=== PATIENT | female | born 1960 | race Caucasian/White ===

== ENCOUNTER → 2016-08-11 | Outpatient (CLI) | payer BC ==
[~2016-08-11] MED LIST: AMIT75TA2 PO; AMLO5TAB2 PO; ASPI-390 PO; ATOR-22 PO; CARV12.52 PO; CARV25TA PO; DICL1GEL28 TOP; FLUT0.15 NAE; GABA-113 PO; LOSA100T65 PO
--- NOTE | 2016-08-11 16:42 | DIAGNOSTIC IMAGING REPORT ---
CHEST 2 VIEWS ROUTINE CLINICAL HISTORY: COUGH, UPPER RESISTOR TRACT Reaction, acute SINUSITIS dyspnea. Cough. COMPARISON STUDY: 09/03/2015 FINDINGS: The bones soft tissues and hemidiaphragms are normal. The cardiomediastinal silhouette is normal. The lungs are clear. The pulmonary vasculature is normal. IMPRESSION: Negative chest. Electronically signed by: Abimael Up M.D. 08/11/2016 4:41 PM Dictated Date/Time: 08/11/2016 4:41 PM
== END | disposition home or self-care (01) ==
LOC: C.RAD1850 16:28
PROVIDERS: ATTEND Nurse Practitioner Family
DX: R05 Cough (principal); J39.3 Upper respiratory tract hypersensitivity reaction, site unspecified; J01.90 Acute sinusitis, unspecified

== ENCOUNTER → 2016-09-22 | Outpatient (CLI) | payer BC ==
--- NOTE | 2016-09-23 14:42 | PULMONARY FUNCTION TEST ---
Interpretation based off ATS standards. SPIROMETRY: Within normal limits and no signs of significant reversibility. LUNG VOLUMES: Mildly decreased residual volume and FRC consistent with obesity. DIFFUSION CAPACITY: Not obtained.
== END | disposition home or self-care (01) ==
LOC: C.RC 12:47
PROVIDERS: ATTEND Family Medicine
DX: R05 Cough (principal)

== ENCOUNTER → 2016-10-20 | Outpatient (CLI) | payer BC ==
--- NOTE | 2016-10-21 08:21 | MAMMOGRAPHY REPORT ---
BILATERAL DIGITAL SCREENING MAMMOGRAM TOMOSYNTHESIS WITH CAD: 10/20/2016 CLINICAL HISTORY: Routine screening. Patient has no complaints. TECHNIQUE: Breast tomosynthesis in addition to standard 2D mammography was performed. Current study was also evaluated with a Computer Aided Detection (CAD) system. COMPARISON: Comparison is made to exam dated: 07/11/2008. BREAST COMPOSITION: The tissue of both breasts is almost entirely fatty. FINDINGS: There is a newly visualized prominent 16 mm left axillary lymph node. This far superior l ocation may not been included on the prior mammogram. Nevertheless, further characterization with ta rgeted ultrasound is recommended. There are a few benign-appearing microcalcifications and mild vascular calcifications in the breasts. No other suspicious mass, architectural distortion or cluster of microcalcifications is seen. IMPRESSION: ACR BI-RADS CATEGORY 0: INCOMPLETE EVALUATION: NEED ADDITIONAL IMAGING EVALUATION The prominent 16 mm left axillary lymph node needs additional imaging evaluation. The patient will be called to schedule an appointment. Approximately 10% of breast cancers are not detected with mammography. A negative mammographic report should not delay biopsy if a clinically suggestive mass is present. Lissa Noonan M.D. ay/:10/20/2016 18:13:56 Oil Heater Installer: Thu VELASCO)([place]), [facility] letter sent: Addl Imaging 0 BI-RADS Code: ACR BI-RADS Category 0: Incomplete Evaluation: Need Additional Imaging Evaluation
== END | disposition home or self-care (01) ==
LOC: C.MAMM 15:48
PROVIDERS: ATTEND Family Medicine
DX: Z12.31 Encounter for screening mammogram for malignant neoplasm of breast (principal); R59.9 Enlarged lymph nodes, unspecified

== ENCOUNTER → 2016-10-28 | Outpatient (CLI) | payer BC ==
--- NOTE | 2016-10-29 09:08 | MAMMOGRAPHY REPORT ---
ULTRASOUND OF LEFT BREAST: 10/28/2016 CLINICAL HISTORY: Callback from screening mammogram for prominent left axillary lymph node. COMPARISON: Comparison is made to exams dated: 10/20/2016 mammogram - [facility] an d 07/11/2008. TECHNIQUE: Real-time targeted ultrasound of the left breast was performed. FINDINGS: Real-time, high resolution targeted ultrasound was performed of the left axilla. In the l eft axilla there is a morphologically abnormal axillary lymph node which has an echogenic fatty hilum but does have peripheral cortical thickening and a lobulated shape, measuring 1.5 x 1.3 x 1.8 cm. T his corresponds with the prominent lymph node seen mammographically. A few other smaller mildly prom inent left axillary lymph nodes are seen which are normal oval in shape and have echogenic fatty stone but have mild cortical thickening. Recommend ultrasound guided core needle biopsy of the dominant l eft axillary lymph node. Targeted ultrasound was performed of the right axilla for comparison purposes, which shows morphologi marilin normal right axillary lymph nodes with echogenic fatty stone and thin peripheral cortices. IMPRESSION: ACR BI-RADS CATEGORY 4: SUSPICIOUS - FOLLOW-UP RECOMMENDED Morphologically abnormal 1.8 cm left axillary lymph node on ultrasound, which corresponds with the ly mph node seen on the screening mammogram. A few other mildly prominent left axillary lymph nodes are seen, which appear asymmetric to the right axillary lymph nodes. Recommend ultrasound guided core n eedle biopsy of the dominant left axillary lymph node. A phone call was made to the physician's office to confirm faxed results were received. The patient was verbally notified of the results. She tentatively scheduled the biopsy before leaving the [facility]. Aria Byrd M.D. /:10/28/2016 14:46:00 Electro Optics Engineer: Thu BACON(R)(M), [facility] letter sent: Abnormal 4/5 BI-RADS Code: ACR BI-RADS Category 4: Suspicious
== END | disposition home or self-care (01) ==
LOC: C.MAMM 13:30
PROVIDERS: ATTEND Family Medicine
DX: R59.9 Enlarged lymph nodes, unspecified (principal)

== ENCOUNTER → 2016-11-06 | Outpatient (CLI) | payer BC ==
--- NOTE | 2016-11-06 08:34 | Discharge Instructions ---
Discharge Instructions Procedure Procedure Date: Nov 06, 2016. Reason for visit: Left Axillary Node. Discharge Discharge Date: Nov 06, 2016. Discharge Diagnosis: status post breast biopsy Instructions Activity Recommendations: Additional Limitations (see below) Return to School/Work: no limitations Recommended Home Diet: No Limitations Provider Instructions: ACTIVITY RECOMMENDATIONS: * No lifting, pushing, pulling or exercising the affected side for three days. RETURN TO SCHOOL/WORK: * You may return to work/school after the procedure, but do not perform any strenuous activities for 24 to 48 hours. MEDICATIONS: * Tylenol (two 325 mg) every four to six hours if needed for mild pain (if not allergic to Tylenol). DIET: * Resume previous diet. SPECIAL CARE INSTRUCTIONS: * Keep biopsy site dry for 24 hours. May shower after 24 hours, but do not soak (bathe) incision. * May remove Tegaderm (plastic patch) tomorrow AFTER showering. * Leave the steri-strips on for one week. Allow the steri-strips to fall off by themselves. If not off after one week, you may remove them. You may place a Bandaid crosswise over the strips, if desired. * Apply ice 10 minutes on and 10 minutes off as needed. * Wear a bra at bedtime to sleep more comfortably for 2-3 days. * Your referring physician should have the results after approximately 5 to 7 business days. * Call for unusual bleeding, fever, drainage, etc or if you have any questions call during normal business hours or after hours call Dr Byrd, . FOLLOW UP VISIT: Follow-up with Referring Physician as scheduled. Allergies Coded Allergies: Sumatriptan (Verified Adverse Reaction, Intermediate, PALPITATIONS, ) Dolores Chairez Recommendations: Call your doctor if: * Temperature above 101 degrees * Pain not relieved by pain medicine ordered * There is increased drainage or redness from any incision * You have any unanswered questions or concerns. Your Doctors Instructions noted above were prepared by provider Aria Byrd. Patient Signature Section: Patient Instructions Signature Page Nisreen Nelson Patient (or Guardian) Signature/Date: I have read and understand the instructions given to me by my caregivers. Caregiver/RN/Doctor Signature/Date: The above-named patient and/or guardian has received patient instructions on this date. + Original Patient Signature Page (only) stays with chart. Please make copy for patient.
--- NOTE | 2016-11-06 12:32 | MAMMOGRAPHY REPORT ---
THIS REPORT HAS BEEN AMENDED. ULTRASOUND GUIDED BIOPSY LEFT BREAST: 11/06/2016 CLINICAL HISTORY: Abnormal left axillary lymph node. PATIENT CONSENT: The procedure, risks and benefits were discussed with the patient and informed writt en consent was obtained. A timeout was performed immediately prior to the procedure. PROCEDURE DESCRIPTION: With ultrasound guidance, aseptic technique, and lidocaine as the local anesth etic (1% lidocaine to anesthetize the skin and 1% lidocaine with epinephrine to anesthetize the deepe r tissues), the left axillary lymph node was sampled 3 times with a 14-gauge Achieve biopsy needle. Immediately thereafter, with ultrasound guidance, aseptic technique, and lidocaine as the local anest hetic, a metallic localizer clip was placed into the lymph node. Direct pressure was applied to the site immediately post procedure and hemostasis was achieved. Postprocedure unilateral mammograms wer e performed to confirm clip placement. The patient tolerated the procedure without complication. Sh e was given wound care instructions. The specimens were sent to pathology for analysis. COMPARISON: Comparison is made to exams dated: 10/28/2016 ultrasound, 10/20/2016 mammogram - [facility], and 07/11/2008. IMPRESSION: ULTRASOUND GUIDED BIOPSY Ultrasound guided core needle biopsy of the abnormal left axillary lymph node, with clip placement. The patient will receive pathology results from her referring provider. Aria Byrd M.D. ah/:11/06/2016 08:35:50 System Support Specialist: Flor Banda, [facility] AMENDMENT: 11/20/2016 Aria Byrd M.D. Pathology results from ultrasound guided biopsy of a left axillary lymph node was reviewed on 11/21/19 17. The pathology shows necrotizing granulomatous inflammation. Consider surgical consultation for f armando evaluation.
--- NOTE | 2016-11-06 12:32 | MAMMOGRAPHY REPORT ---
UNILATERAL LEFT DIGITAL DIAGNOSTIC MAMMOGRAM: 11/06/2016 CLINICAL HISTORY: Status post ultrasound guided biopsy of a left axillary lymph node. TECHNIQUE: Postprocedural left MLO view was obtained. COMPARISON: Comparison is made to exams dated: 10/28/2016 ultrasound and 10/20/2016 mammogram - [facility]. BREAST COMPOSITION: The tissue of the left breast is almost entirely fatty. FINDINGS: A new biopsy marker clip is seen within the biopsied left axillary lymph node. No signifi cant postbiopsy hematoma is seen. IMPRESSION: POST PROCEDURE IMAGING FOR MARKER PLACEMENT New biopsy marker clip status post ultrasound guided biopsy of an abnormal left axillary lymph node. Pathology results are pending. Approximately 10% of breast cancers are not detected with mammography. A negative mammographic report should not delay biopsy if a clinically suggestive mass is present. Aria Byrd M.D. /:11/06/2016 08:46:18 Kiln Maintenance: Flor Banda, [facility] BI-RADS Code: Post Procedure Imaging For Marker Placement
== END | disposition home or self-care (01) ==
LOC: C.MAMM 07:50
PROVIDERS: ATTEND Family Medicine
DX: R59.9 Enlarged lymph nodes, unspecified (principal)

== ENCOUNTER → 2016-12-23 | Outpatient (CLI) | payer BC | END | disposition home or self-care (01) | LOC: C.PATHSPEC 13:08 | PROVIDERS: ATTEND Surgery | DX: R59.0 Localized enlarged lymph nodes (principal) ==

== ENCOUNTER → 2017-01-21 | Outpatient (CLI) | payer BC ==
--- NOTE | 2017-01-21 11:18 | DIAGNOSTIC IMAGING REPORT ---
CHEST 2 VIEWS ROUTINE CLINICAL HISTORY: 56 years-old Female presenting with coughing, health maintenance. TECHNIQUE: PA and lateral views of the chest were obtained. COMPARISON: 08/11/2016. FINDINGS: Cardiomediastinal silhouette normal. Few calcified granulomas may be present. Lungs and pleural spaces clear. Osseous structures normal. Cholecystectomy clips noted. IMPRESSION: 1. No acute cardiopulmonary disease. Electronically signed by: Brandon Lopez M.D. 01/21/2017 11:17 AM Dictated Date/Time: 01/21/2017 11:16 AM
[2017-01-25 16:43] LABS: QUANTIF TB AG-NIL <0.00 IU/ML; QUANTIFERON NIL 0.04 IU/ML
== END | disposition home or self-care (01) ==
LOC: C.RAD1850 10:42
PROVIDERS: ATTEND Internal Medicine Infectious Disease
DX: Z00.00 Encounter for general adult medical examination without abnormal findings (principal); R05 Cough

== ENCOUNTER → 2017-06-02 | Outpatient (CLI) | payer OTHER ==
--- NOTE | 2017-06-02 17:16 | DIAGNOSTIC IMAGING REPORT ---
CT SCAN OF THE PARANASAL SINUSES CLINICAL HISTORY: Anosmia. Chronic sinusitis. COMPARISON STUDY: MRI of the brain dated 04/04/2015. TECHNIQUE: High-resolution CT scan of the paranasal sinuses is performed. Images are reviewed in the axial, sagittal, and coronal planes. IV contrast was not administered for this examination. A dose lowering technique was utilized adhering to the principles of ALARA. CT DOSE: 269.19 mGycm FINDINGS: Maxillary antra: Clear bilaterally. Anterior ethmoid sinuses: Clear. Posterior ethmoid sinuses: Clear. Sphenoid sinuses: Clear. Frontal sinuses: Trace mucosal thickening is similar right. Clear on the left. Ostiomeatal complexes: Patent bilaterally. Frontoethmoidal and sphenoethmoidal recesses: Patent bilaterally. Carotid arteries: The carotid arteries are covered and without septal attachments. Ethmoid roofs: The ethmoid roofs are symmetric. Nasal turbinates: Normal in appearance. Nasal septum: There is minimal leftward deviation of the bony nasal septum. Optic nerves: Covered. Orbits: The bony orbits are intact. Orbital contents are normal in appearance. Calvarium: The skeletal structures are osteopenic. The imaged calvarium is normal in appearance Mastoid air cells: Well pneumatized. Brain parenchyma: Partially visualized brain parenchyma is within normal limits. IMPRESSION: No significant paranasal sinus disease. See above. Electronically signed by: Huey Desai M.D. 06/02/2017 5:15 PM Dictated Date/Time: 06/02/2017 5:13 PM
== END | disposition home or self-care (01) ==
LOC: C.CTS 16:58
PROVIDERS: ATTEND Family Medicine
DX: J32.9 Chronic sinusitis, unspecified (principal); R43.0 Anosmia

== ENCOUNTER 2018-10-31 11:27 | Inpatient (IN) ==
[2018-10-31] MEDS ORDERED: OPTIRAY 320 125ml IV PRN (11:49)
--- NOTE | 2018-10-31 11:56 | CT Scan Report ---
CT SCAN OF THE BRAIN WITHOUT IV CONTRAST CLINICAL HISTORY: Strokelike symptoms. COMPARISON STUDY: CT of the brain dated 04/13/2018. TECHNIQUE: Unenhanced axial CT scan of the brain is performed from the vertex to the skull base. A d ose lowering technique was utilized adhering to the principles of ALARA. FINDINGS: Brain parenchyma: The brain parenchyma is normal in appearance. There is no hemorrhage, mass effect, or evidence of acute territorial ischemia by CT criteria. Chaves-white matter differentiation is preser trice. No extra-axial fluid collection is seen. Ventricles, sulci, cisterns: Normal in configuration. Intracranial vasculature: There is atherosclerotic calcification of the cavernous carotid arteries. Calvarium: Unremarkable. Sinuses and mastoids: The visualized paranasal sinuses are clear. The mastoid air cells are well pneu matized. Orbits: The bony orbits are grossly intact. IMPRESSION: There is no hemorrhage, mass effect, or evidence of acute territorial ischemia by CT vimal prakash. Electronically signed by: Huey Desai M.D. 10/31/2018 11:54 AM
--- NOTE | 2018-10-31 12:03 | CT Scan Report ---
CT angio head w con CLINICAL HISTORY: 58 years-old Female presenting with CVA. TECHNIQUE: Multidetector CT angiography of the head was performed after the administration of intrave nous contrast. 3-D volumetric and/or maximum intensity projection (MIP) images were subsequently mitchel nstructed for review. IV contrast: 119 mL of Optiray 320. One or more dose lowering techniques were u sed consistent with the principles of ALARA (as low as reasonably achievable), including automatic ex posure control, mA or kV adjustment to individual patient size, and/or use of iterative reconstructio n. COMPARISON: 04/13/2018. CT DOSE (mGy.cm): The estimated cumulative dose is 1258.11. FINDINGS: Digital Specialist topogram: Unremarkable. Anterior circulation: Intracranial portions of the internal carotid arteries patent to the level of t he termini. Aplastic A1 segment of the right anterior cerebral artery. Anterior cerebral arteries oth erwise patent. Middle cerebral arteries patent. Anterior communicating artery patent. Posterior circulation: Codominant vertebral arteries. Intradural portions of the vertebral arteries p atent. Left posterior inferior cerebellar artery (PICA) patent, which may supply the bilateral PICA d istribution as the right PICA is not well demonstrated. Basilar artery patent. Anterior inferior cere bellar arteries poorly visualized. Superior cerebellar arteries patent. Posterior cerebral arteries p atent. Posterior communicating arteries hypoplastic or aplastic. Dural venous sinuses: Patent. Other: Allowing for the phase of contrast, brain parenchyma within normal limits. Calvarium intact. IMPRESSION: 1. No evidence of aneurysm, focal vessel occlusion, or significant stenosis of the intracranial latanya larisa. Electronically signed by: Brandon Lopez M.D. 10/31/2018 12:02 PM
[2018-10-31 12:13] LABS: Basophils # (auto) 0.04 K/uL (0-0.2); Basophils % (auto) 0.5 %; Eosinophils # (auto) 0.24 K/uL (0-0.5); Eosinophils % (auto) 3.2 %; Hemoglobin 14.8 g/dL (12.0-16.0); Immature Granulocytes # (auto) 0.02 K/uL (0.00-0.02); Immature Granulocytes % (auto) 0.3 %; Lymphocytes # (auto) 1.95 K/uL (1.2-3.4); Lymphocytes % (auto) 26.2 %; Mean Corpuscular Hgb Conc 35.2 g/dL (32-36); Mean Corpuscular Volume 87.1 fL (80-100); Mean Platelet Volume 9.5 fL (7.4-10.4); Monocytes # (auto) 0.57 K/uL (0.11-0.59); Monocytes % (auto) 7.7 %; Neutrophils # (auto) 4.62 K/uL (1.4-6.5); Neutrophils % (auto) 62.1 %; Platelet Count 229 K/uL (130-400); RDW Coefficient of Variation 14.1 % (11.5-14.5); RDW Standard Deviation 44.7 fL (36.4-46.3); Red Blood Count 4.82 M/uL (4.2-5.4); White Blood Count 7.44 K/uL (4.8-10.8)
--- NOTE | 2018-10-31 12:13 | CT Scan Report ---
CT ANGIOGRAPHY OF THE NECK WITH CONTRAST CLINICAL HISTORY: Cerebrovascular accident. COMPARISON STUDY: CTA of the neck July 18, 2018. Technique: CT angiography of the carotid and vertebral arteries was obtained using [employer] 320 IV and 3D reconstruction on an independent workstation. NASCET criteria was utilized. Automated exposure c ontrol was utilized for the study. A dose lowering technique was utilized adhering to the principles of ALARA. CT DOSE: 1258.11 mGy.cm Findings: Please note that the head CT and CTA of the head will be reported separately. Lung apices a re clear. There is no cervical lymphadenopathy. A focal dissection within the proximal right vertebra l artery on axial image 130 of 376 is unchanged exam of July 18, 2018. The vessel remains patent. No thrombus is identified. The bilateral common carotid and cervical internal carotid arteries are blanchard nt. There is minimal plaque within the proximal left internal carotid artery without stenosis. No add itional dissections are identified. IMPRESSION: 1. 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 2. Otherwise, unremarkable CTA of the neck. No stenosis. Electronically signed by: Kristopher Hammer M.D. 10/31/2018 12:12 PM
[2018-10-31 12:24] LABS: INR 1.1 (0.9-1.1); Partial Thromboplastin Ratio 0.9; Partial Thromboplastin Time 23.5 Seconds (21.0-31.0); Prothrombin Time 10.9 Seconds (9.0-12.0)
[2018-10-31 12:32] LABS: Alanine Aminotransferase 15 U/L (12-78); Albumin Level 4.2 gm/dl (3.4-5.0); Aspartate Aminotransferase 27 U/L (15-37); BUN Creatinine Ratio 14.5 (10-20); Blood Urea Nitrogen 17 mg/dl (7-18); Calcium 9.1 mg/dl (8.5-10.1); Carbon Dioxide 30 mmol/L (21-32); Chloride 100 mmol/L (98-107); Creatinine Clr Calc Pharmacy 57.9 ml/min; Est GFR (African American) 60.5; Est GFR (Non-African American) 52.2; Glucose 82 mg/dl (70-99); Magnesium 2.4 mg/dl (1.8-2.4); Potassium 2.8 mmol/L (3.5-5.1); Sodium 135 mmol/L (136-145)
[2018-10-31] MEDS: SODIUM CHLORIDE 0.9% 1000ML 1,000 ML IV SCH (12:33)
[2018-10-31 12:37] LABS: Albumin Globulin Ratio 1.2 (0.9-2); Alkaline Phosphatase 88 U/L (45-117); Bilirubin,Total 0.4 mg/dl (0.2-1); Globulin 3.4 gm/dl (2.5-4.0); Total Protein 7.6 gm/dl (6.4-8.2); Troponin I < 0.015 ng/ml (0-0.045)
[2018-10-31] MEDS ORDERED: POTASSIUM CHLORIDE 20 MEQ/15 ML UDC PO STA (13:15)
[2018-10-31] MEDS ORDERED: ACETAMINOPHEN 1,000 MG/100 ML VIAL IV STA (13:24)
[2018-10-31] MEDS ORDERED: PROCHLORPERAZINE 10 MG in SYRINGE 8 ML IV ONE (13:24)
[2018-10-31] MEDS ORDERED: DiphenhydrAMINE HCL 50 MG/ML VIAL IV STA (13:24)
[2018-10-31] MEDS ORDERED: PROCHLORPERAZINE 5 MG/ML 2 ML VIAL ONE (13:29)
--- NOTE | 2018-10-31 14:51 | Emergency Department Note ---
Entered by Belinda Martinez acting as a scribe for History of Present Illness General Chief complaint: Stroke Alert Source: patient and family Mode of arrival: EMS Limitations: no limitations History of Present Illness Provider complaint: stroke-like symptoms Onset (ago): hour(s) 1 Location: head Pain Consistency: + other (episode) Quality: + other (stroke-like) Associated symptoms: + headaches, + weakness and + other (facial droop) The patient is a 58 year old female who presents to the ER via EMS following an episode of stroke-like symptoms that began around 1030 this morning. EMS reports that the patient was on her way to work when she suddenly developed left-sided weakness and facial droop. EMS states that she was complaining of a severe headache in the back of her head. The patents at bedside states the patient had a similar episode about 6 months ago and when they were about to give the patient TPA, her symptoms improved. 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 She was treated with several months of Coumadin therapy which she has since stopped. EMS reports that her symptoms do seem improved since their initial onset. Home Medications Home Medications Medication Instructions Recorded Confirmed Type azelastine 2 spray INTRANASAL BID 01/19/18 10/31/18 History chlorthalidone 50 mg PO QAM 01/19/18 10/31/18 History gabapentin 300 mg PO HS 01/19/18 10/31/18 History albuterol sulfate 2 - 4 puff INHALATION Q4 PRN 04/13/18 10/31/18 History bupropion HCl [Wellbutrin SR] 150 mg PO BID 04/13/18 10/31/18 History aspirin [Ecotrin Low Strength] 81 mg PO QAM #30 tab 04/16/18 10/31/18 Rx atorvastatin 40 mg PO QAM #30 tab 04/16/18 10/31/18 Rx carvedilol [Coreg] 12.5 mg PO BID 06/21/18 10/31/18 History amlodipine 10 mg PO DAILY 10/31/18 10/31/18 History lorazepam 1 - 2 mg PO BID PRN 10/31/18 10/31/18 History sertraline 150 mg PO QAM 10/31/18 10/31/18 History Allergies Allergy/AdvReac Type Severity Reaction Status Date / Time sumatriptan AdvReac Intermediate PALPITATION Verified 10/31/18 12:50 S Past Med/Surg History Social History Preferred Language: Kosovan Communication Ability: Effective 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 and A total of 10 systems reviewed and were otherwise negative Physical Exam Vital Signs Vital Signs - 24 hr 10/31/18 12:01 10/31/18 12:05 10/31/18 12:07 Temperature 36.6 C Temperature Source Oral Sepsis Recent Fever Within 48 Hours No Sepsis Action Taken by Nursing No Action Required Pulse Rate 73 73 73 Pulse Rate [Apical] 73 Pulse Rate from SpO2 Sensor 73 73 Respiratory Rate 14 16 14 Blood Pressure 141/90 H 141/90 H Blood Pressure [Left Arm] 141/90 H Blood Pressure Mean 107 107 Blood Pressure Mean [Left Arm] 107 Pulse Oximetry 97 99 99 Oxygen Delivery Method Room Air 10/31/18 12:10 10/31/18 12:20 10/31/18 12:30 Temperature Temperature Source Sepsis Recent Fever Within 48 Hours Sepsis Action Taken by Nursing Pulse Rate 72 73 78 Pulse Rate [Apical] Pulse Rate from SpO2 Sensor 72 73 79 Respiratory Rate 16 22 24 Blood Pressure Blood Pressure [Left Arm] Blood Pressure Mean Blood Pressure Mean [Left Arm] Pulse Oximetry 99 98 97 Oxygen Delivery Method 10/31/18 12:31 10/31/18 12:40 10/31/18 12:50 Temperature Temperature Source Sepsis Recent Fever Within 48 Hours Sepsis Action Taken by Nursing Pulse Rate 72 79 73 Pulse Rate [Apical] Pulse Rate from SpO2 Sensor 73 80 73 Respiratory Rate 22 15 18 Blood Pressure 142/97 H Blood Pressure [Left Arm] Blood Pressure Mean 112 Blood Pressure Mean [Left Arm] Pulse Oximetry 98 99 99 Oxygen Delivery Method 10/31/18 13:00 10/31/18 13:01 10/31/18 13:10 Temperature Temperature Source Sepsis Recent Fever Within 48 Hours Sepsis Action Taken by Nursing Pulse Rate 71 71 71 Pulse Rate [Apical] Pulse Rate from SpO2 Sensor 72 70 70 Respiratory Rate 17 24 Blood Pressure 135/96 Blood Pressure [Left Arm] Blood Pressure Mean 109 Blood Pressure Mean [Left Arm] Pulse Oximetry 100 99 100 Oxygen Delivery Method 10/31/18 13:21 10/31/18 13:30 10/31/18 13:39 Temperature Temperature Source Sepsis Recent Fever Within 48 Hours Sepsis Action Taken by Nursing Pulse Rate 77 70 71 Pulse Rate [Apical] Pulse Rate from SpO2 Sensor 74 71 71 Respiratory Rate 22 24 18 Blood Pressure 116/83 Blood Pressure [Left Arm] Blood Pressure Mean 94 Blood Pressure Mean [Left Arm] Pulse Oximetry 96 98 95 Oxygen Delivery Method 10/31/18 13:41 10/31/18 13:46 10/31/18 13:50 Temperature Temperature Source Sepsis Recent Fever Within 48 Hours Sepsis Action Taken by Nursing Pulse Rate 72 71 71 Pulse Rate [Apical] Pulse Rate from SpO2 Sensor 72 71 71 Respiratory Rate 27 H 28 H 15 Blood Pressure 110/80 Blood Pressure [Left Arm] Blood Pressure Mean 90 Blood Pressure Mean [Left Arm] Pulse Oximetry 97 99 98 Oxygen Delivery Method 10/31/18 14:00 10/31/18 14:01 10/31/18 14:05 Temperature Temperature Source Sepsis Recent Fever Within 48 Hours Sepsis Action Taken by Nursing Pulse Rate 64 70 69 Pulse Rate [Apical] Pulse Rate from SpO2 Sensor 65 69 70 Respiratory Rate 13 14 18 Blood Pressure 143/102 H 131/90 Blood Pressure [Left Arm] Blood Pressure Mean 115 103 Blood Pressure Mean [Left Arm] Pulse Oximetry 97 96 98 Oxygen Delivery Method 10/31/18 14:10 10/31/18 14:16 10/31/18 14:20 Temperature Temperature Source Sepsis Recent Fever Within 48 Hours Sepsis Action Taken by Nursing Pulse Rate 65 63 63 Pulse Rate [Apical] Pulse Rate from SpO2 Sensor 64 63 63 Respiratory Rate 15 16 15 Blood Pressure 95/63 L Blood Pressure [Left Arm] Blood Pressure Mean 73 Blood Pressure Mean [Left Arm] Pulse Oximetry 96 98 97 Oxygen Delivery Method Vital signs reviewed. General: Well-appearing, in no significant distress. HEENT: No scleral icterus, PERRLA, neck supple. Atraumatic. Cardiovascular: Regular rate and rhythm, no extra sounds. Pulmonary: Clear to auscultation bilaterally, normal work of breathing. Abdomen: Soft, nontender, nondistended, positive bowel sounds. Musculoskeletal: Atraumatic, no peripheral edema. Neurologic: Patient awake alert and answers questions appropriately. Speech is intact. ? left nasal-labial fold flattening. Minimal attempt at left lead oracle developer strength. 3/5 of the LLE. Able to hold the left lower and upper extremity up off of the bed for greater than 5 seconds. Skin: Warm, dry, no rash Course 1121: I took the medic command call. A Stroke Alert was called. 1144: The patient arrived and was taken to CT. 1155: The patient returned from CT. She was evaluated in room B1. A complete history and physical examination was performed. 1156: I discussed the patients case with Dr. Gaines [facility]. She will be evaluating the patient via TeleStroke. 1211: The patient is being evaluated by Dr. Gaines - [facility] Neu[facility] via TeleStroke. 1227: I reviewed the patients case with Dr. Gaines [facility]. 1311: I discussed the patient's case with Dr. Hayes - [facility] Hospitalist. He will evaluate the patient for further management. Administered Medications Sodium Chloride (Nss 1000ml) 1,000 mls @ 100 mls/hr IV .Q10H NATTY Stop: 11/30/18 11:44 Last Admin: 10/31/18 12:33 Dose: 100 mls/hr Documented by: [id number] Ioversol (Optiray 320 125ml) 119 ml IV ONCE PRN PRN Reason: Interaction Checking Stop: 11/04/18 11:48 Last Admin: 10/31/18 11:49 Dose: 119 ml Documented by: [id number] Discontinued Medications Diphenhydramine HCl (Benadryl) 25 mg IV NOW STA Stop: 10/31/18 13:25 Last Admin: 10/31/18 13:37 Dose: 25 mg Documented by: [id number] Acetaminophen (Ofirmev) 1,000 mg in 100 mls @ 400 mls/hr IV NOW STA Stop: 10/31/18 13:38 Last Infusion: 10/31/18 14:36 Dose: 0 mls/hr Documented by: [id number] Admin: 10/31/18 13:37 Dose: 400 mls/hr Documented by: [id number] Prochlorperazine 10 mg/ (Syringe) 10 mls @ 5 mls/min IV ONE ONE Stop: 10/31/18 13:25 Last Admin: 10/31/18 13:37 Dose: 5 mls/min Documented by: [id number] Potassium Chloride (Nanette Ciel Elix) 40 meq PO NOW STA Stop: 10/31/18 13:16 Last Admin: 10/31/18 13:37 Dose: 40 meq Documented by: [id number] Prochlorperazine (Compazine) Confirm Administered Dose 10 mg .ROUTE .STK-MED ONE Stop: 10/31/18 13:30 Last Admin: 10/31/18 13:38 Dose: Not Given Documented by: [id number] Medical Decision Making Differential Diagnosis Differential Diagnosis includes: ischemic stroke, hemorrhagic stroke, bells palsy, mass, neoplasm, migraine headache, seizure, subarachnoid hemorrhage, hemiplegic migraine, TIA, and transient global amnesia. Medical Records Attestation: I reviewed the patient's medical records. Home Medications Current Medication List: was personally reviewed by me Laboratory Data Attestation: I reviewed the patient's lab results. Result diagrams: 10/31/18 12:05 10/31/18 12:05 Lab Results 10/31/18 10/31/18 10/31/18 Range/Units 11:59 12:05 12:05 WBC 7.44 (4.8-10.8) K/uL RBC 4.82 (4.2-5.4) M/uL Hgb 14.8 (12.0-16.0) g/dL Hct 42.0 (37-47) % MCV 87.1 (80-100) fL MCH 30.7 (25-34) pg MCHC 35.2 (32-36) g/dL RDW Std Deviation 44.7 (36.4-46.3) fL RDW Coeff of Kylie 14.1 (11.5-14.5) % Plt Count 229 (130-400) K/uL MPV 9.5 (7.4-10.4) fL Immature Gran % (Auto) 0.3 % Neut % (Auto) 62.1 % Lymph % (Auto) 26.2 % [place] % (Auto) 7.7 % Eos % (Auto) 3.2 % Baso % (Auto) 0.5 % Immature Gran # (Auto) 0.02 (0.00-0.02) K/uL Neut # (Auto) 4.62 (1.4-6.5) K/uL Lymph # (Auto) 1.95 (1.2-3.4) K/uL [place] # (Auto) 0.57 (0.11-0.59) K/uL Eos # (Auto) 0.24 (0-0.5) K/uL Baso # (Auto) 0.04 (0-0.2) K/uL PT 10.9 (9.0-12.0) Seconds INR 1.1 (0.9-1.1) APTT 23.5 (21.0-31.0) Seconds PTT Ratio 0.9 Sodium (136-145) mmol/L Potassium (3.5-5.1) mmol/L Chloride (98-107) mmol/L Carbon Dioxide (21-32) mmol/L Anion Gap (3-11) BUN (7-18) mg/dl Creatinine (0.6-1.2) mg/dl Est Cr Clr Drug Dosing ml/min Est GFR ( Amer) Est GFR (Non-Af Amer) BUN/Creatinine Ratio (10-20) Glucose (70-99) mg/dl POC Glucose 95 (70-99) Calcium (8.5-10.1) mg/dl Magnesium (1.8-2.4) mg/dl Total Bilirubin (0.2-1) mg/dl AST (15-37) U/L ALT (12-78) U/L Alkaline Phosphatase (45-117) U/L Troponin I (0-0.045) ng/ml Total Protein (6.4-8.2) gm/dl Albumin (3.4-5.0) gm/dl Globulin (2.5-4.0) gm/dl Albumin/Globulin Ratio (0.9-2) 10/31/18 Range/Units 12:05 WBC (4.8-10.8) K/uL RBC (4.2-5.4) M/uL Hgb (12.0-16.0) g/dL Hct (37-47) % MCV (80-100) fL MCH (25-34) pg MCHC (32-36) g/dL RDW Std Deviation (36.4-46.3) fL RDW Coeff of Kylie (11.5-14.5) % Plt Count (130-400) K/uL MPV (7.4-10.4) fL Immature Gran % (Auto) % Neut % (Auto) % Lymph % (Auto) % [place] % (Auto) % Eos % (Auto) % Baso % (Auto) % Immature Gran # (Auto) (0.00-0.02) K/uL Neut # (Auto) (1.4-6.5) K/uL Lymph # (Auto) (1.2-3.4) K/uL [place] # (Auto) (0.11-0.59) K/uL Eos # (Auto) (0-0.5) K/uL Baso # (Auto) (0-0.2) K/uL PT (9.0-12.0) Seconds INR (0.9-1.1) APTT (21.0-31.0) Seconds PTT Ratio Sodium 135 L (136-145) mmol/L Potassium 2.8 L (3.5-5.1) mmol/L Chloride 100 (98-107) mmol/L Carbon Dioxide 30 (21-32) mmol/L Anion Gap 5.0 (3-11) BUN 17 (7-18) mg/dl Creatinine 1.16 (0.6-1.2) mg/dl Est Cr Clr Drug Dosing 57.9 ml/min Est GFR ( Amer) 60.5 Est GFR (Non-Af Amer) 52.2 BUN/Creatinine Ratio 14.5 (10-20) Glucose 82 (70-99) mg/dl POC Glucose (70-99) Calcium 9.1 (8.5-10.1) mg/dl Magnesium 2.4 (1.8-2.4) mg/dl Total Bilirubin 0.4 (0.2-1) mg/dl AST 27 (15-37) U/L ALT 15 (12-78) U/L Alkaline Phosphatase 88 (45-117) U/L Troponin I < 0.015 (0-0.045) ng/ml Total Protein 7.6 (6.4-8.2) gm/dl Albumin 4.2 (3.4-5.0) gm/dl Globulin 3.4 (2.5-4.0) gm/dl Albumin/Globulin Ratio 1.2 (0.9-2) Imaging Data Radiologist's Impression: Radiology results as stated below per my review and the radiologist's interpretation: CT SCAN OF THE BRAIN WITHOUT IV CONTRAST CLINICAL HISTORY: Strokelike symptoms. COMPARISON STUDY: CT of the brain dated 04/13/2018. TECHNIQUE: Unenhanced axial CT scan of the brain is performed from the vertex to the skull base. A dose lowering technique was utilized adhering to the principles of ALARA. FINDINGS: Brain parenchyma: The brain parenchyma is normal in appearance. There is no hemorrhage, mass effect, or evidence of acute territorial ischemia by CT criteria. Chaves-white matter differentiation is preserved. No extra-axial fluid collection is seen. Ventricles, sulci, cisterns: Normal in configuration. Intracranial vasculature: There is atherosclerotic calcification of the cavernous carotid arteries. Calvarium: Unremarkable. Sinuses and mastoids: The visualized paranasal sinuses are clear. The mastoid ai r cells are well pneumatized. Orbits: The bony orbits are grossly intact. IMPRESSION: There is no hemorrhage, mass effect, or evidence of acute territorial ischemia by CT criteria. Electronically signed by: Huey Desai M.D. 10/31/2018 11:[address] angio head w con CLINICAL HISTORY: 58 years-old Female presenting with CVA. TECHNIQUE: Multidetector CT angiography of the head was performed after the administration of intravenous contrast. 3-D volumetric and/or maximum intensity projection (MIP) images were subsequently reconstructed for review. IV contrast: 119 mL of Optiray 320. One or more dose lowering techniques were used consistent with the principles of ALARA (as low as reasonably achievable), including automatic exposure control, mA or kV adjustment to individual patient size, and/or use of iterative reconstruction. COMPARISON: 04/13/2018. CT DOSE (mGy.cm): The estimated cumulative dose is 1258.11. FINDINGS: Sales And Customer Relations Rep topogram: Unremarkable. Anterior circulation: Intracranial portions of the internal carotid arteries patent to the level of the termini. Aplastic A1 segment of the right anterior cerebral artery. Anterior cerebral arteries otherwise patent. Middle cerebral arteries patent. Anterior communicating artery patent. Posterior circulation: Codominant vertebral arteries. Intradural portions of the vertebral arteries patent. Left posterior inferior cerebellar artery (PICA) patent, which may supply the bilateral PICA distribution as the right PICA is not well demonstrated. Basilar artery patent. Anterior inferior cerebellar arteries poorly visualized. Superior cerebellar arteries patent. Posterior cerebral arteries patent. Posterior communicating arteries hypoplastic or aplastic. Dural venous sinuses: Patent. Other: Allowing for the phase of contrast, brain parenchyma within normal limits. Calvarium intact. IMPRESSION: 1. No evidence of aneurysm, focal vessel occlusion, or significant stenosis of the intracranial arteries. Electronically signed by: Brandon Lopez M.D. 10/31/2018 12:[address] ANGIOGRAPHY OF THE NECK WITH CONTRAST CLINICAL HISTORY: Cerebrovascular accident. COMPARISON STUDY: CTA of the neck July 18, 2018. Technique: CT angiography of the carotid and vertebral arteries was obtained using [employer] 320 IV and 3D reconstruction on an independent workstation. NASCET criteria was utilized. Automated exposure control was utilized for the study. A dose lowering technique was utilized adhering to the principles of ALARA. CT DOSE: 1258.11 mGy.cm Findings: Please note that the head CT and CTA of the head will be reported sep arately. Lung apices are clear. There is no cervical lymphadenopathy. A focal dissection within the proximal right vertebral artery on axial image 130 of 376 is unchanged exam of July 18, 2018. The vessel remains patent. No thrombus is identified. The bilateral common carotid and cervical internal carotid arteries are patent. There is minimal plaque within the proximal left internal carotid artery without stenosis. No additional dissections are identified. IMPRESSION: 1. 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 2. Otherwise, unremarkable CTA of the neck. No stenosis. Electronically signed by: Kristopher Hammer M.D. 10/31/2018 12:12 PM ECG Data Attestation: I personally reviewed and interpreted this ECG as follows: Indication: other (stroke-like sx) Rate (beats per minute): 71 Rhythm: sinus rhythm Findings: + 1st degree AV block and + nonspecific-ST abn (Anterolateral) Blood Pressure Blood Pressure Findings: Elevated blood pressure Blood Pressure Disposition: further management by hospitalist [place] Narrative This patient was evaluated and appeared to be in no significant distress. EMS first contacted me for medical command regarding a stroke alert. Stroke alert was called. CT and CTA of the head and neck were performed and are negative for acute findings. Patient does have some left upper and lower extremity weakness although the exam is somewhat inconsistent. Patient is able to hold the extre mity up off of the bed but states she is unable to bend the left knee. Patient can hold the left arm up off of the bed when the elbow was extended however states she is not able to bend the elbow or extend the shoulder to reach behind the head. Patient's speech has been clear during the entire visit. The nasolabial fold flattening that was questionable on initial exam had completely resolved. Patient is alert and answering questions appropriately. She states she has been taking 2 mg of Ativan each morning prior to going to work. Dr. Rosales of neurology at [facility] evaluated the patient through telestroke. She felt the patient had significant enough deficit to consider TPA therapy. Upon speaking with the patient's he reiterated the patient's history of hemiplegic migraine. He also states the patient's boss let her know this morning that she has had significant errors at work and may be terminated. The patient had the sudden headache and symptoms shortly thereafter. Patient's also reiterates that this presentation is identical to 6 months ago. After taking all things into consideration, I feel strongly that with a negative CT, CT angiogram of the head and neck, and is not in the patient's best interest to receive IV TPA therapy. Her symptoms seem to continue to resolve. I have discussed the case with Dr. Hayes of the hospitalist service, pt and family are aware of the plan and agree. Impression & Plan Headache, Stroke-like symptoms, Acute anxiety Critical Care Time Critical Care Time: Yes Total Critical Care Time: 60 I have personally spent 60 minutes of critical care time in the direct management of this patient. This includes bedside care, interpretation of diagnostic studies, and testing, discussion with consultants, patient, and family members, and other required patient management activities. These 60 minutes are in excess of all separately billable procedures. Discharge Plan Visit Data Chief Complaint: Stroke Alert ED Provider: Yessica Arias Discharge Problem: Headache, Stroke-like symptoms, Acute anxiety Patient Disposition: Being Evaluated by Hospitalist Forms Stand Alone Forms: My [facility] Prescriptions Prescriptions: No Action carvedilol [Coreg] 12.5 mg tablet 12.5 mg PO BID RF: 0 chlorthalidone 50 mg tablet 50 mg PO QAM RF: 0 gabapentin 300 mg capsule 300 mg PO HS RF: 0 azelastine 137 mcg (0.1 %) aerosol,spray 2 spray Intranasal BID RF: 0 bupropion HCl [Wellbutrin SR] 150 mg tablet sustained-release 12 hr 150 mg PO BID RF: 0 albuterol sulfate 90 mcg/actuation HFA aerosol inhaler 2 - 4 puff Inhalation Q4 PRN (Reason: Shortness Of Breath Or Wheezing) RF: 0 atorvastatin 40 mg Tablet 40 mg PO QAM Qty: 30 RF: 0 aspirin [Ecotrin Low Strength] 81 mg Tablet,Delayed Release (Dr/Ec) 81 mg PO QAM Qty: 30 RF: 0 sertraline 100 mg tablet 150 mg PO QAM RF: 0 lorazepam 2 mg tablet 1 - 2 mg PO BID PRN (Reason: Anxiety) RF: 0 amlodipine 10 mg tablet 10 mg PO DAILY RF: 0 Referrals Referrals: Padilla Velez MD [Primary Care Provider] - Discharge Problem: Headache Qualifiers: Headache type: unspecified Headache chronicity pattern: acute headache Intractability: not intractable Qualified Code(s): R51 - Headache The scribe's documentation has been prepared under my direction and personally reviewed by me in its entirety. I confirm that the note above accurately reflects all work, treatment, procedures, and medical decision making performed by me.
--- NOTE | 2018-10-31 15:21 | History & Physical Report ---
Date of Service October 31, 2018 Assessment & Plan (1) Left-sided weakness: Ms. Nelson is a 58yo with a PMHx significant for right sided vertebral artery dissection, complex migraines, HTN and anxiety who presented with the acute onset of left sided weakness, headache associated with nausea, blurry vision in the left eye, slurred speech and numbness and tingling in her extremities bilaterally. Pt likely having another hemiplegic migraine. Less likely stroke/TIA. STROKE RULE OUT -Head CT NEG for acute process, head CTA unremarkable, Neck CTA with stable/unchanged vertebral artery dissection. -NO TPA administered in ED. -stat MRI Brain ordered. -echo, lipid profile, hgA1c ordered -pt admitted to tele, q2h neuro checks -continue home atorvastatin 40mg, aspirin -will continue to monitor HEMIPLEGIC MIGRAINE -Likely cause of patient's presenting symptoms -Started on IV Depakote 500mg BID -Zofran 4mg ODT prn for nausea -will continue to monitor HYPOKALEMIA -On admission 2.8 -Replaced in ED with 40mEq of KClor -One more dose of 40mEq ordered for later in the day. -will trend with AM labs -will continue to monitor HX of vertebral artery dissection -per imaging, currently stable. -will continue to monitor pt for signs of acute progression. HTN -hold home meds of chlorthalidone, carvedilol, amlodipine as BPs have been on low side occasionally. Anxiety -continue home Sertraline, Ativan, bupropion FEN/GI: heart Healthy, fluids DVT Prophylaxis: lovenox subq CODE STATUS: full code Dispo: med surg with tele History of Present Illness Chief Complaint: Left sided weakness Primary Care Provider: Padilla Velez MD Ms. Nelson is a 58yo with a PMHx significant for right sided vertebral artery dissection, complex migraines, HTN and anxiety who presented with the acute onset of left sided weakness, blurry vision in the left eye, slurred speech and numbness and tingling in her extremities bilaterally. This is associated with a headache that she describes as being more prominent in the back of her head and associated with light sensitivity. States her symptoms all started around 10:30AM this morning and she was in the ED by 11:40AM. At the time of exam she states that her speech has improved significantly and that she has the headache with nausea. Her left sided weakness remains as well. PMHx: Complex Migraines, HTN, Anxiety, Vertebral artery dissection PSH: 3 C-sections, cholecystectomy, tonsillectomy, hysterectomy, knee replacement, ovarian cyst removal. Fam Hx: Mother-COPD, of bone cancer. Father- of prostate cancer, had MIs in his 40s. Siblings-have HTN. Allergies: Imitrex-cause palpitations ED COURSE: Head CT unremarkable, Neck CTA with STABLE/unchanged focal vertebral artery dissection, head CTA unremarkable. Unremarkable CBC, BMP with hypokalemia of 2.8, EKG unremarkable except for 1st degree block. Allergies Allergy/AdvReac Type Severity Reaction Status Date / Time sumatriptan AdvReac Intermediate PALPITATION Verified 10/31/18 12:50 S Home Medications Home Medications Medication Instructions Recorded Confirmed Type azelastine 2 spray INTRANASAL BID 01/19/18 10/31/18 History chlorthalidone 50 mg PO QAM 01/19/18 10/31/18 History gabapentin 300 mg PO HS 01/19/18 10/31/18 History albuterol sulfate 2 - 4 puff INHALATION Q4 PRN 04/13/18 10/31/18 History bupropion HCl [Wellbutrin SR] 150 mg PO BID 04/13/18 10/31/18 History aspirin [Ecotrin Low Strength] 81 mg PO QAM #30 tab 04/16/18 10/31/18 Rx atorvastatin 40 mg PO QAM #30 tab 04/16/18 10/31/18 Rx carvedilol [Coreg] 12.5 mg PO BID 06/21/18 10/31/18 History amlodipine 10 mg PO DAILY 10/31/18 10/31/18 History lorazepam 1 - 2 mg PO BID PRN 10/31/18 10/31/18 History sertraline 150 mg PO QAM 10/31/18 10/31/18 History Past Med/Surg History Social History Preferred Language: Somali Communication Ability: Effective Forgesmith Required: No Beliefs That Will Affect Care: None marital status: Current Living Situation: Spouse Other Information That Helps Us Care for You: No Feels Safe at Home: Yes Safety Concerns: Feels Safe At This Time Smoking Status: Never smoker Do You Dip or Chew Tobacco: No Second Hand Exposure: No Tobacco Cessation Education Requested by Patient: No Hx Alcohol Use: No Hx Substance Use: No Review of Systems Review of Systems: All systems reviewed & are unremarkable except as noted in HPI & below Physical Exam Physical Exam: General: Alert, oriented. Laying in the room with eyes covered. Neuro: CNII-XII grossly intact. 3/5 strength on left side, 5/5 on right. Slowed finger to nose test on left, normal with right. HEENT: NC/AT, PERRLA, EOMI, oropharynx moist. Chest: Nontender to palpation. CV: RRR, Normal s1, s2. No murmurs appreciated Resp: Breath sounds clear bilaterally, no increased effort of breathing. Abdomen: Soft, nontender, nondistended. Extremities: No edema. Results & Data Vital Signs (Past 12 Hours) Vital Signs Temp Pulse Pulse Resp BP BP Pulse Ox 10/31/18 14:20 63 15 97 10/31/18 14:16 63 16 95/63 L 98 10/31/18 14:10 65 15 96 10/31/18 14:05 69 18 131/90 98 10/31/18 14:01 70 14 143/102 H 96 10/31/18 14:00 64 13 97 10/31/18 13:50 71 15 98 10/31/18 13:46 71 28 H 110/80 99 10/31/18 13:41 72 27 H 97 10/31/18 13:39 71 18 116/83 95 10/31/18 13:30 70 24 98 10/31/18 13:21 77 22 96 10/31/18 13:10 71 24 100 10/31/18 13:01 71 135/96 99 10/31/18 13:00 71 17 100 10/31/18 12:50 73 18 99 10/31/18 12:40 79 15 99 10/31/18 12:31 72 22 142/97 H 98 10/31/18 12:30 78 24 97 10/31/18 12:20 73 22 98 10/31/18 12:10 72 16 99 10/31/18 12:07 73 14 99 10/31/18 12:05 36.6 C 73 73 16 141/90 H 141/90 H 99 10/31/18 12:01 73 14 141/90 H 97 Laboratory Results Laboratory Results - last 24 hr 10/31/18 10/31/18 10/31/18 11:59 12:05 12:05 WBC 7.44 RBC 4.82 Hgb 14.8 Hct 42.0 MCV 87.1 MCH 30.7 MCHC 35.2 RDW Std Deviation 44.7 RDW Coeff of Kylie 14.1 Plt Count 229 MPV 9.5 Immature Gran % (Auto) 0.3 Neut % (Auto) 62.1 Lymph % (Auto) 26.2 Barton % (Auto) 7.7 Eos % (Auto) 3.2 Baso % (Auto) 0.5 Immature Gran # (Auto) 0.02 Neut # (Auto) 4.62 Lymph # (Auto) 1.95 Barton # (Auto) 0.57 Eos # (Auto) 0.24 Baso # (Auto) 0.04 PT 10.9 INR 1.1 APTT 23.5 PTT Ratio 0.9 Sodium Potassium Chloride Carbon Dioxide Anion Gap BUN Creatinine Est Cr Clr Drug Dosing Est GFR ( Amer) Est GFR (Non-Af Amer) BUN/Creatinine Ratio Glucose POC Glucose 95 Calcium Magnesium Total Bilirubin AST ALT Alkaline Phosphatase Troponin I Total Protein Albumin Globulin Albumin/Globulin Ratio 10/31/18 12:05 WBC RBC Hgb Hct MCV MCH MCHC RDW Std Deviation RDW Coeff of Kylie Plt Count MPV Immature Gran % (Auto) Neut % (Auto) Lymph % (Auto) Barton % (Auto) Eos % (Auto) Baso % (Auto) Immature Gran # (Auto) Neut # (Auto) Lymph # (Auto) Barton # (Auto) Eos # (Auto) Baso # (Auto) PT INR APTT PTT Ratio Sodium 135 L Potassium 2.8 L Chloride 100 Carbon Dioxide 30 Anion Gap 5.0 BUN 17 Creatinine 1.16 Est Cr Clr Drug Dosing 57.9 Est GFR ( Amer) 60.5 Est GFR (Non-Af Amer) 52.2 BUN/Creatinine Ratio 14.5 Glucose 82 POC Glucose Calcium 9.1 Magnesium 2.4 Total Bilirubin 0.4 AST 27 ALT 15 Alkaline Phosphatase 88 Troponin I < 0.015 Total Protein 7.6 Albumin 4.2 Globulin 3.4 Albumin/Globulin Ratio 1.2 Medications Administered Home Medications azelastine 2 spray INTRANASAL BID 01/19/18 [History Confirmed 10/31/18] chlorthalidone 50 mg PO QAM 01/19/18 [History Confirmed 10/31/18] gabapentin 300 mg PO HS 01/19/18 [History Confirmed 10/31/18] albuterol sulfate 2 - 4 puff INHALATION Q4 PRN 04/13/18 [History Confirmed 10/31/18] bupropion HCl [Wellbutrin SR] 150 mg PO BID 04/13/18 [History Confirmed 10/31/18] aspirin [Ecotrin Low Strength] 81 mg PO QAM #30 tab 04/16/18 [Rx Confirmed 10/31/18] atorvastatin 40 mg PO QAM #30 tab 04/16/18 [Rx Confirmed 10/31/18] carvedilol [Coreg] 12.5 mg PO BID 06/21/18 [History Confirmed 10/31/18] amlodipine 10 mg PO DAILY 10/31/18 [History Confirmed 10/31/18] lorazepam 1 - 2 mg PO BID PRN 10/31/18 [History Confirmed 10/31/18] sertraline 150 mg PO QAM 10/31/18 [History Confirmed 10/31/18] Active Medications Sodium Chloride (Nss 1000ml) 1,000 mls @ 100 mls/hr IV .Q10H NATTY Stop: 11/30/18 11:44 Last Admin: 10/31/18 12:33 Dose: 100 mls/hr Documented by: Ioversol (Optiray 320 125ml) 119 ml IV ONCE PRN PRN Reason: Interaction Checking Stop: 11/04/18 11:48 Last Admin: 10/31/18 11:49 Dose: 119 ml Documented by: Supervising Physician Co-Signing Physician Notes I personally examined the patient and verified all sánchez points of history and exam, discussed case, and agree with decision making with Dr Eldridge. headache, neuro deficits. headache persists, neuro deficits improving. vitals noted appearing uncomfortable laying on side in dark room. no focal neuro deficits. breathing unlabored no accessory muscle use good effort. ost/msk - R>L suboccipitals high tone/tender/decreased ROM - inhibitory pressure, improved/pt tolerated well and noted some degree of improvement in headache headache/neuro deficits - complicated migraine > stroke like illness - stat MRI brain, neuro consult. depakote IV for headache (BP somewhat low for adding verapamil, would not want to use triptan given complicated migraine) somatic dysfunction cervical region - OMT as above. DVT proph - lovenox otherwise as above PG Care Time/CCT Total # of Minutes Spent Total Time Spent with Patient: Total time spent is greater than 50% in coordination of care (as documented) at patient's floor/unit and/or counseling patient:
[2018-10-31] MEDS ORDERED: ONDANSETRON 8MG OD TAB PO PRN (15:34)
[2018-10-31] MEDS ORDERED: PHARMACIST DISCHARGE MED REC CONSULT PRN (15:34)
[2018-10-31] MEDS ORDERED: LORazepam 1 MG TAB PO PRN (15:34)
[2018-10-31] MEDS ORDERED: ALBUTEROL HFA 8 GM INHALER INH PRN (15:34)
[2018-10-31] MEDS ORDERED: ONDANSETRON 4 MG OD TAB PO PRN (16:10)
[2018-10-31] MEDS ORDERED: GADOBUTROL 65ML VIAL IV PRN (16:55)
[2018-10-31] MEDS ORDERED: POTASSIUM CHLORIDE 20 MEQ TABCR PO ONE (17:00)
[2018-10-31] MEDS: VALPROATE SOD 500 MG in DEXTROSE 5% 50 ML IV SCH (17:08)
--- NOTE | 2018-10-31 17:12 | Magnetic Resonance Report ---
MRI OF THE BRAIN WITHOUT AND WITH IV CONTRAST CLINICAL HISTORY: Left-sided weakness slurred speech and facial numbness. POSSIBLE ACUTE STROKE COMPARISON STUDY: 04/15/2018 TECHNIQUE: MRI of the brain was performed from the vertex to the skull base utilizing various T1 and T2 weighted sequences. Following the IV administration of 8 mL of Gadavist contrast, additional enhan cookie images were obtained. FINDINGS: Sagittal T1, axial diffusion, proton density and T2 weighted axial, coronal FLAIR, and pre and post a xial T1-weighted images were acquired. These were supplemented with post gadolinium coronal T1 weight ed images. No intra or extra-axial mass lesions are visualized. Axial diffusion-weighted images reveal no evidence of acute or subacute infarction. There is no evidence of ventricular dilatation. Proton density T2-weighted and FLAIR images reveal scattered foci of increased T2 signal within the w judie matter, likely on a small vessel basis. The findings remain unchanged from the preceding study There are no abnormal flow voids. There is no evidence of pathologic enhancement. There is a tiny Thornwaldt cyst nasopharyngeal cyst, unchanged from the prior study. There is minimal increased T2 signal within the mastoids, likely inflammatory and unchanged from the prior study. IMPRESSION: 1. No acute intracranial findings 2. No evidence of intracranial mass 3. No evidence of acute or subacute infarction Electronically signed by: Manish Sherman M.D. 10/31/2018 5:11 PM
[2018-10-31] MEDS ORDERED: ENOXAPARIN INJ 40 MG/0.4 ML SYR SQ SCH (18:00)
[2018-10-31] MEDS ORDERED: ACETAMINOPHEN 500 MG TAB PO PRN (18:37)
[2018-10-31] MEDS ORDERED: GABAPENTIN 300 MG CAP PO SCH (21:00)
[2018-10-31] MEDS: BuPROPion SR 150 MG TABCR PO SCH (21:31)
[2018-10-31] MEDS: KETOROLAC TROMETHAMINE 10 MG TABLET PO PRN (21:32)
[2018-10-31] MEDS ORDERED: TRAMADOL HCL 50 MG TABLET PO STA (22:48)
[2018-11-01] MEDS: SODIUM CHLORIDE 0.9% 1000ML 1,000 ML IV SCH ×2 (01:33→09:59)
[2018-11-01 05:48] LABS: Estimated Average Glucose 108 mg/dl; Hemoglobin A1C 5.4 % (4.5-5.6)
[2018-11-01] MEDS: VALPROATE SOD 500 MG in DEXTROSE 5% 50 ML IV SCH (05:59)
--- NOTE | 2018-11-01 06:47 | Family Medicine Progress Note ---
Date of Service November 01, 2018 Assessment & Plan (1) Left-sided weakness: Ms. Nelson is a 58yo with a PMHx significant for right sided vertebral artery dissection, complex migraines, HTN and anxiety who presented with the acute onset of left sided weakness, headache associated with nausea, blurry vision in the left eye, slurred speech and numbness and tingling in her extremities bilaterally. Pt likely having another hemiplegic migraine. Less likely stroke/TIA. STROKE RULE OUT -neuro consult placed--appreciate recs -PT/OT-appreciate recs -Head CT NEG for acute process, head CTA unremarkable, Neck CTA with stable/unchanged vertebral artery dissection. -NO TPA administered in ED. -stat MRI Brain- NEG for acute process -echo-PENDING -lipid profile with elevated triglycerides only. - hgA1c within normal limits -pt admitted to tele, q2h neuro checks -continue home atorvastatin 40mg, aspirin -will continue to monitor HEMIPLEGIC MIGRAINE -Likely cause of patient's presenting symptoms -Continue IV Depakote 500mg BID -Zofran 4mg ODT prn for nausea -will continue to monitor HYPOKALEMIA -Still decreased this am -will continue to replace and trend -will continue to monitor HX of vertebral artery dissection -per imaging, currently stable. -will continue to monitor pt for signs of acute progression. HTN -hold home meds of chlorthalidone, carvedilol, amlodipine as BPs have been on low side occasionally. Anxiety -continue home Sertraline, Ativan, bupropion FEN/GI: heart Healthy, fluids DVT Prophylaxis: lovenox subq CODE STATUS: full code Dispo: home with resolution of symptoms Results & Data Vital Signs (Past 12 Hours) Vital Signs Temp Pulse Pulse Resp BP Pulse Ox 11/01/18 04:32 36.4 C L 63 18 97/62 L 92 10/31/18 23:45 70 10/31/18 22:57 36.9 C 72 20 97/64 L 96 10/31/18 19:00 36.6 C 61 18 98/65 L 93 PG Care Time/CCT Total # of Minutes Spent Total Time Spent with Patient: Total time spent is greater than 50% in coordination of care (as documented) at patient's floor/unit and/or counseling patient:
[2018-11-01 06:51] LABS: Basophils # (auto) 0.04 K/uL (0-0.2); Basophils % (auto) 0.6 %; Eosinophils # (auto) 0.25 K/uL (0-0.5); Eosinophils % (auto) 3.9 %; Hematocrit (blood only) 38.6 % (37-47); Hemoglobin 13.1 g/dL (12.0-16.0); Lymphocytes # (auto) 2.58 K/uL (1.2-3.4); Lymphocytes % (auto) 40.1 %; Mean Corpuscular Hgb Conc 33.9 g/dL (32-36); Mean Corpuscular Volume 88.3 fL (80-100); Mean Platelet Volume 9.6 fL (7.4-10.4); Monocytes # (auto) 0.45 K/uL (0.11-0.59); Neutrophils # (auto) 3.12 K/uL (1.4-6.5); Neutrophils % (auto) 48.4 %; Platelet Count 203 K/uL (130-400); RDW Coefficient of Variation 14.2 % (11.5-14.5); RDW Standard Deviation 45.7 fL (36.4-46.3); Red Blood Count 4.37 M/uL (4.2-5.4); White Blood Count 6.44 K/uL (4.8-10.8)
[2018-11-01 07:21] LABS: BUN Creatinine Ratio 16.5 (10-20); Calcium 8.2 mg/dl (8.5-10.1); Creatinine Clr Calc Pharmacy 59.2 ml/min; Est GFR (African American) 63.1; Est GFR (Non-African American) 54.5; Potassium 3.2 mmol/L (3.5-5.1)
[2018-11-01] MEDS ORDERED: POTASSIUM CHLORIDE 20 MEQ TABCR PO STA (07:28)
[2018-11-01] MEDS ORDERED: PERFLUTREN LIPID MICROSPHERE (DEFINITY) IV ONE (08:43)
[2018-11-01] MEDS ORDERED: ASPIRIN 81 MG ECTAB PO SCH ×2 (09:00)
[2018-11-01] MEDS ORDERED: ATORVASTATIN 40 MG TAB PO SCH (09:00)
[2018-11-01] MEDS ORDERED: SERTRALINE HCL 100 MG TABLET PO SCH (09:00)
[2018-11-01] MEDS: BuPROPion SR 150 MG TABCR PO SCH (09:56)
--- NOTE | 2018-11-01 10:06 | Neurology Consultation ---
Date of Consultation November 01, 2018 Assessment & Plan (1) Migraine: Patient had an acute complicated migraine consisting of vasospasm/aura as well as vasodilation/headache October 31. This consisted of left-sided weakness in the face and arm as well as blurry vision to the left, some slurred speech and tingling of the left face. All of this has improved back to baseline today, except for some slight asymmetry at the corner of the mouth on the left. Extensive neuro imaging has not shown any new stroke and she has no significant cerebral vascular disease. The right vertebral dissection area is unchanged compared the previous study 6 months ago. There is a longstanding history of migraine headaches in this patient since her 20s. She has had 2 very significant complicated migraines in the last 6 months (April of 2018 and yesterday). S She does have a history of hypertension of a longstanding nature although her blood pressure is not abnormal currently. Hypertension could trigger vasospasm and these spells. She has considerable anxiety and stress and these could trigger migraines and vasospasm as well. Her other risk factors for stroke include dyslipidemia and she is on a statin. She has no history of cigarette smoking, heart disease, or diabetes. 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 This led to 3 months of Coumadin. Repeat studies in July of 2018 and yesterday showed no change in this. After review with Radiology I suspect this lesion in the vessel seen at C6 is probably very old and may actually be a fenestration as opposed to a dissection. (3) Acute anxiety: The patient has a considerable history of anxiety and depression. This is triggered mostly by stress from work and is interfering with her health. Complete neuropsychological testing in April of 2018 revealed some minor neuro cognitive problems only. This testing was were consistent with significan t anxiety depression (4) Chronic cerebral ischemia: Patient has mild old small vessel ischemic change seen on MRI unchanged from previous study of 2018. This is likely secondary to her history of hypertension. Recommendations: 1. Consider verapamil as drug of choice for preventing vasospasm. Because of her tendency to have hypotension we could discontinue Coreg. I would start with 180 milligrams verapamil SR once daily in the morning and could increase to 240 or higher if needed. Blood pressure 1 half to monitor closely. 2. If verapamil cannot be given because of blood pressure/treatment reasons, I would consider lamotrigine to help prevent migraines. We would start at 25 milligrams twice daily for 1 week then increase to 50 milligrams twice daily, and titrating up to a target of 100 milligrams twice daily. Lamotrigine may also help mood. 3. Normally I would consider topiramate (particularly since she wants to lose weight) but she has a history of nephrolithiasis, so I would avoid this medication for now. 4. Because of her severe anxiety we could increase sertraline to 200 milligrams once daily. 5. Consider referring to Psychiatry as an outpatient, for further management of her severe anxiety and depression. 6. Technically, the patient would be a high dose statin candidate if we felt this was a TIA. I do not feel she has any active cerebral vascular disease so I would keep her statin the same for now. 7. Continue 81 milligram aspirin tablet daily. 8. The patient is going to need some counseling regarding whether she should continue to work at this job were not and maybe consider other employment to help reduce her stress levels. 9. I have no further neurologic testing or treatment recommendations to make at this time otherwise. I would be happy to see her as an outpatient for follow- up. Overall, I spent a total of 110 minutes with this case including review of records, review of MRI and CT angiography films, direct evaluation the patient at bedside, and discussion of the case with the patient and her son at bedside, Dr. Desai, and Dr. Tong, including differential diagnosis and treatment options. History of Present Illness Reason for Consultation: Patient is a 58-year-old, who I was asked to see at the request of Dr. Eldridge, for neurologic evaluation regarding left andrae paresis and other issues. Requesting Physician: Dr. Eldridge Attending Physician: Zoran Tong, DO History of Present Illness Patient started getting migraine headaches in her early 20s. Or 10-20 years she would get them about once a month randomly accompanied by nausea, vomiting, photophobia, and sonophobia. There would be no aura or warning. In her 40s and early 50s these headaches became much less frequent. Over the last 2 years, however, they have been occurring about once per month again, without any aura. They would start out with a bitemporal stabbing pain and a bioccipital pain accompanied by nausea, vomiting, photophobia, and sonophobia. They would last up to 2-3 days although as time goes on they would be less intense. Stress is a big triggering factor for headaches. Patient admits to be anxious her whole life. Her anxiety really became more prominent in the last 2 years or so. She has had increased work stress over these last 2 years a significant nature. She has been on some antidepressants and anxiolytics which helps some. Patient believes that she has had memory problems since the summer of 2017. It staying about the same but it is giving her problems work with short-term recall problems. Patient was evaluated by Dr. Ace in April of 2018. He did complete neuropsychological testing and she had very minor cognitive issues identified in couple of specific areas. There was no significant dementia or neuro cognitive problems present. However she had significant anxiety and depression with effort issues on the testing. He diagnosed major depressive disorder, generalized anxiety disorder, and panic disorder. Currently, the patient is on bupropion 150 milligrams twice daily, gabapentin 300 milligrams at bedtime, and sertraline, recently increased to 150 milligrams each morning. These medications help some. In April of 2018, the patient had the onset of right greater than left-sided weakness, left-sided sensory issues, balance problems, speech problems, and a significant headache. She was brought into the hospital where a CT scan of the head was unremarkable. CT angiography of the head neck showed a the mid right vertebral small area of dissection. MRI of the brain showed no acute changes and few nonspecific old small vessel ischemic changes unchanged from 2015. She was diagnosed with complicated migraine and she has been on 81 milligram aspirin since. She was given 3 months of Coumadin for the dissection which was stopped in the spring. Repeat CT angiography in July of 2018 showed no change from the previous CT angiography of April 2018. Patient missed 5 months of work because of her condition and went back to work in early September of 2018. She has been having issues with severe stress going to work and functioning at work. She has forgetfulness and has been getting in trouble at work for work errors. She feels she might be fired because of these mistakes at work. On October 31, the patient got up at 05:45 feeling well and then went to work at 06:40 as usual. Sometime in the mid morning she was called to talk to her boss and her boss related that the patient had made some mistakes the other day at work. The patient became upset and went back to her office. Around 10 30 she noted the onset of tingling in her left face. This progressed to weakness of her left face and weakness of the left arm. She had blurry vision in the left eye and facial droop on the left. This peaked in about 10 minutes and then she noted an occipital headache bilaterally. She arrived to the emergency room October 31 at 1201 with a temperature of 36.6, blood pressure 141/90, pulse 73 and regular, respiratory rate 14, O2 saturation 97 percent. On examination she was described as having normal speech and has a slight left facial weakness. The left arm was weak as well. She had headache and nausea. CBC was unremarkable. Chem profile showed a normal glucose with a low potassium of 2.8 and a sodium of 135. The rest of the chemistry profile was unremarkable. CT of the head was unremarkable with no acute changes CT angiography of the head and neck showed no significant stenoses or vessel anomalies except the stable finding at the C6 level of the right vertebral artery consistent with a small area dissection versus fenestration. I have reviewed these films with the radiologist Dr. Desai. MRI of the brain was obtained and showed no acute changes. There was a few scattered nonspecific old small vessel ischemic changes, unchanged from the previous study of 2018. This film was reviewed with the radiologist as well. Triglycerides were elevated at 233 and cholesterol was 161. Repeat CBC Chem profile were unremarkable although her calcium was slightly low now Patient was given Depakote 500 milligrams IV yesterday while still in the emergency room. Blood pressure this morning was 110/73. She feels tired this morning and has a bit of occipital headache with some photophobia but not as bad as yesterday. She has no weakness in her extremities and feels that her face is better. Allergies Allergy/AdvReac Type Severity Reaction Status Date / Time sumatriptan AdvReac Intermediate PALPITATION Verified 10/31/18 12:50 S Home Medications Home Medications Medication Instructions Recorded Confirmed Type azelastine 2 spray INTRANASAL BID 01/19/18 10/31/18 History chlorthalidone 50 mg PO QAM 01/19/18 10/31/18 History gabapentin 300 mg PO HS 01/19/18 10/31/18 History albuterol sulfate 2 - 4 puff INHALATION Q4 PRN 04/13/18 10/31/18 History bupropion HCl [Wellbutrin SR] 150 mg PO BID 04/13/18 10/31/18 History aspirin [Ecotrin Low Strength] 81 mg PO QAM #30 tab 04/16/18 10/31/18 Rx atorvastatin 40 mg PO QAM #30 tab 04/16/18 10/31/18 Rx carvedilol [Coreg] 12.5 mg PO BID 06/21/18 10/31/18 History amlodipine 10 mg PO DAILY 10/31/18 10/31/18 History lorazepam 1 - 2 mg PO BID PRN 10/31/18 10/31/18 History sertraline 150 mg PO QAM 10/31/18 10/31/18 History Patient History Medical History Chronic renal disease, stage III (Chronic) Rheumatoid arthritis (Chronic) Anxiety Fibromyalgia Hyperlipidemia Hypertension Kidney stones Migraine Ovarian cyst Surgical History History of tonsillectomy H/O section H/O total knee replacement H/O: hysterectomy Family History Mother , early 80s from bone cancer. COPD (chronic obstructive pulmonary disease) Father , age 66 of prostate cancer. 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 [place] Other Information That Helps Us Care for You: No Feels Safe at Home: Yes Safety Concerns: Feels Safe At This Time Smoking Status: Never smoker Do You Dip or Chew Tobacco: No Second Hand Exposure: No Tobacco Cessation Education Requested by Patient: No Hx Alcohol Use: No Hx Substance Use: No Review of Systems Constitutional: + fatigue; no fever, no body aches and no weakness Eyes: no diplopia, no eye pain and no worsening vision Ear, Nose, Mouth, Throat: no ear pain, no tinnitus, no hearing loss and no dysphagia Respiratory: no cough and no dyspnea Cardiovascular: no chest pain, no dyspnea and no palpitations Gastrointestinal: no abdominal pain, no nausea and no vomiting Genitourinary: no dysuria, no urinary frequency and no urinary incontinence Musculoskeletal: no back pain, no neck pain, no radicular pain, no myalgia, no muscle weakness and no muscle atrophy Integumentary: no rash and no lesions Neurologic: no gait abnormality, no falls, no localized weakness, no generalized weakness, no tingling, no numbness, no tremor(s), no abnormal movements, no dizziness, no headache(s), no abnormal speech, no behavioral changes, no confusion and no memory loss Psychiatric: + depression and + anxiety; no abnormal sleep pattern, no difficulty concentrating, no confusion and no hallucinations Endocrine: + fatigue; no flushing Hematologic / Lymphatic: no easy bleeding and no easy bruising Allergy / Immunological: no urticaria Physical Exam Physical Exam: The patient is left-handed. The patient is awake, alert, and attentive. Speech is normal without any aphasia or dysarthria. Mentation and thought processes are intact, with full orientation and normal fund of knowledge. Attention and concentration are normal. Mood and affect are normal and appropriate. At times she would tear up when talking about her work. General appearance and grooming are normal. Short and long-term memory are intact. The discs are sharp with positive venous pulsations bilaterally. There are no exudates, hemorrhages, or blood vessel changes seen. Pupils are 4 mm bilaterally and reactive to light. Extraocular eye muscles are intact without nystagmus. Visual acuity and visual montoya seem normal grossly to confrontation. There are no deficits to sensation in the face in all 3 distributions of the fifth cranial nerve bilaterally. Corneal reflexes are positive bilaterally. Facial strength was normal bilaterally however there was a little asymmetry with not as much smiled at the corner of the mouth on the left compared to the right. Hearing seems intact grossly to voice and finger rub bilaterally. Palate moves well without asymmetry. There is normal sternocleidomastoid and trapezius (shoulder shrug) strength bilaterally. Tongue is midline with good strength bilaterally. Neck has a full range of motion without discomfort. There are no cervical bruits bilaterally. There are no cranial or ocular bruits. Heart is without murmur. There is a regular rhythm and rate. Cervical spine has some tenderness at the cervical occipital junctions bilaterally. Otherwise the spinous processes are nontender. Thoracic and lumbar spine are nontender to palpation. Gait is narrow based, with good arm swing, turns, and stance. Balance is normal eyes open or closed. With outstretched arms there is no drift. There are no resting, postural, or action tremors. There is no ataxia with finger to nose testing. There is good facility in the hands. No other abnormal involuntary movements are noted. Motor strength is 5/5 diffusely in the arms bilaterally including deltoids, biceps, triceps, brachioradialis, wrist flexors and extensors, insurance claims representative, and intrinsic hand muscles. Motor strength is 5/5 diffusely in the legs bilaterally including hip flexors, quadriceps, hamstrings, gastrocnemius, tibialis anterior, tibialis posterior, and Peroneii muscles bilaterally. Toe extensors are normal and there is good bulk in the extensor digitorum brevis muscles bilaterally. The limbs have good tone without rigidity or spasticity. There is no atrophy noted in the muscles. Muscle bulk is normal, there is no tenderness to palpation, no myotonia to percussion, and no fasciculations seen. Sensory examination is intact to touch and pin throughout all 4 limbs diffusely. Reflexes are 2/4 in the biceps, triceps, brachioradialis, quadriceps, and Achilles tendons bilaterally. Toes are downgoing with plantar stimulation bilaterally. Peripheral pulses are present and of normal quality distally in all 4 limbs. There is no peripheral edema noted in the limbs. Results & Data Vital Signs (Past 12 Hours) Vital Signs Temp Pulse Pulse Resp BP Pulse Ox 11/01/18 07:09 36.7 C 71 18 110/73 95 11/01/18 04:32 36.4 C L 63 18 97/62 L 92 10/31/18 23:45 70 10/31/18 22:57 36.9 C 72 20 97/64 L 96 Diagnostic Findings [place], [place] [phone] Magnetic Resonance Report Patient: PAUL JENNINGS Date: 10/31/18 MR#: [id number]: 41 AIME SINGH Acct ID:[id number]: [facility] Zip: [place] [address] Age: 58Location: 2W Sex: F Room[facility]Bed: [facility] Att Phy: Alycia, Zoran, D.O.Diagnosis: LEFT SIDED WEAKNESS Melissa Phy: AgustinVictor Hugo MDService Date: 10/31/18 Fam Phy: Interpreting Phy: Manish Sherman MD Admit Phy: Danna Eldridge MD Ordering Phy: Danna Eldridge MD cc: ~ MRI OF THE BRAIN WITHOUT AND WITH IV CONTRAST CLINICAL HISTORY: Left-sided weakness slurred speech and facial numbness. POSSIBLE ACUTE STROKE COMPARISON STUDY: 04/15/2018 TECHNIQUE: MRI of the brain was performed from the vertex to the skull base utilizing various T1 and T2 weighted sequences. Following the IV administration of 8 mL of Gadavist contrast, additional enhanced images were obtained. FINDINGS: Sagittal T1, axial diffusion, proton density and T2 weighted axial, coronal FLAIR, and pre and post axial T1-weighted images were acquired. These were supplemented with post gadolinium coronal T1 weighted images. No intra or extra-axial mass lesions are visualized. Axial diffusion-weighted images reveal no evidence of acute or subacute infarction. There is no evidence of ventricular dilatation. Proton density T2-weighted and FLAIR images reveal scattered foci of increased T2 signal within the white matter, likely on a small vessel basis. The findings remain unchanged from the preceding study There are no abnormal flow voids. There is no evidence of pathologic enhancement. There is a tiny Thornwaldt cyst nasopharyngeal cyst, unchanged from the prior study. There is minimal increased T2 signal within the mastoids, likely inflammatory and unchanged from the prior study. IMPRESSION: 1. No acute intracranial findings 2. No evidence of intracranial mass 3. No evidence of acute or subacute infarction Electronically signed by: Manish Sherman M.D. 10/31/2018 5:11 PM (1) Migraine Migraine type: unspecified Status migrainosus presence: without status migrainosus Intractability: not intractable Qualified Code(s): G43.909 - Migr aquiles, unspecified, not intractable, without status migrainosus
[2018-11-01] MEDS: KETOROLAC TROMETHAMINE 10 MG TABLET PO PRN (10:37)
[2018-11-01] MEDS ORDERED: STROKE PATIENT DISCHARGE STA (13:29)
--- NOTE | 2018-11-01 13:31 | Discharge Summary ---
Date of Service November 01, 2018 Admission HPI Per Admitting Provider Ms. Nelson is a 58yo with a PMHx significant for right sided vertebral artery dissection, complex migraines, HTN and anxiety who presented with the acute onset of left sided weakness, blurry vision in the left eye, slurred speech and numbness and tingling in her extremities bilaterally. This is associated with a headache that she describes as being more prominent in the back of her head and associated with light sensitivity. States her symptoms all started around 10:30AM this morning and she was in the ED by 11:40AM. At the time of exam she states that her speech has improved significantly and that she has the headache with nausea. Her left sided weakness remains as well. PMHx: Complex Migraines, HTN, Anxiety, Vertebral artery dissection PSH: 3 C-sections, cholecystectomy, tonsillectomy, hysterectomy, knee replacement, ovarian cyst removal. Fam Hx: Mother-COPD, of bone cancer. Father- of prostate cancer, had MIs in his 40s. Siblings-have HTN. Allergies: Imitrex-cause palpitations ED COURSE: Head CT unremarkable, Neck CTA with STABLE/unchanged focal vertebral artery dissection, head CTA unremarkable. Unremarkable CBC, BMP with hypokalemia of 2.8, EKG unremarkable except for 1st degree block. Admission Exam Per Admitting Provider General: Alert, oriented. Laying in the room with eyes covered. Neuro: CNII-XII grossly intact. 3/5 strength on left side, 5/5 on right. Slowed finger to nose test on left, normal with right. HEENT: NC/AT, PERRLA, EOMI, oropharynx moist. Chest: Nontender to palpation. CV: RRR, Normal s1, s2. No murmurs appreciated Resp: Breath sounds clear bilaterally, no increased effort of breathing. Abdomen: Soft, nontender, nondistended. Extremities: No edema. Principal Diagnosis Complex Migraine Discharge Exam General: Alert, oriented. Sitting up in bed. Neuro: CNII-XII grossly intact. 5/5 strength on left side, 5/5 on right. Unremarkable finger to nose with both hands. Sensation intact bilaterally on face. HEENT: NC/AT, PERRLA, EOMI, oropharynx moist. Chest: Nontender to palpation. CV: RRR, Normal s1, s2. No murmurs appreciated Resp: Breath sounds clear bilaterally, no increased effort of breathing. Abdomen: Soft, nontender, nondistended. Extremities: No edema. Discharge Data Allergies Allergy/AdvReac Type Severity Reaction Status Date / Time sumatriptan AdvReac Intermediate PALPITATION Verified 10/31/18 12:50 S Consultations 10/31/18 15:34 Consult Case Management - Discharge Planning Routine Consult Neurology Routine Ordered Studies 10/31/18 11:39 CT angio head w con Stat CT angio neck with con Stat CT head/brain wo con Stat 10/31/18 15:34 MR brain wo/w con Stat Hospital Course (1) Left-sided weakness: Ms. Nelson is a 58yo with a PMHx significant for right sided vertebral artery dissection, complex migraines, HTN and anxiety who presented with the acute onset of left sided weakness, headache associated with nausea, blurry vision in the left eye, slurred speech and numbness and tingling in her extremities bilaterally. 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 Pt describes stressful meeting with boss prior to presentation. Less likely stroke/TIA as ruled out by imaging. Pt admitted on October 31 and discharged on November 01. SUMMARY RECOMMENDATIONS -Pt advised to consider changing jobs as it is likely trigger for this second complex migraine. Counseling might be needed outpatient. -Psychiatry referral outpatient would be beneficial given this patient's severe anxiety and depression history. -Sertraline dose increased to 200mg on discharge. -Started on Verapamil 180mg SR qAM for migraine prevention in place of Coreg. Coreg discontinued on discharge. -Continue baby aspirin ans current Atorvastatin 40mg dose. STROKE RULE OUT -neuro consult placed-recommended Verapamil 180mg SR qAM in place of Coreg, psych outptient referral, sertraline dose increase to 200mg and continuing baby aspirin and home statin dose. -Head CT NEG for acute process, head CTA unremarkable, Neck CTA with stable/unchanged vertebral artery dissection. -NO TPA administered in ED. -stat MRI Brain- NEG for acute process -echo-PENDING on discharge. -lipid profile with elevated triglycerides only. - hgA1c within normal limits -pt admitted to [facility], q2h neuro checks -continue home atorvastatin 40mg, aspirin 81mg. -close PCP followup strongly recommended. HEMIPLEGIC/COMPLEX MIGRAINE -Likely cause of patient's presenting symptoms. improved on discharge. 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 Described stressful encounter with boss. -Received IV Depakote 500mg BID and one tramadol dose. Discharged on Verapamil 180mg SR qAM. -Due to likely psychiatric component, sertraline dose also increased to 200mg. -Zofran 4mg ODT prn for nausea -close PCP followup recommended. HYPOKALEMIA -Decreased on admission and replaced. -Close PCP followup recommended. HX of vertebral artery dissection -per imaging, currently stable. -close PCP followup recommended. HTN -held home meds of chlorthalidone, carvedilol, amlodipine as BPs have been on low side while hospitalized. -advsed restart on discharge. -Close PCP followup suggested. Anxiety/Depression -continued home Sertraline, Ativan, bupropion. -sertraline dose increased to 200mg on discharge. -Consider psych referral outpatient, counseling to deal with work stress. -Close PCP followup recommended. Total Time Total Time Spent Total Time Spent (In Minutes): >30, separate from OMT time Discharge Plan Discharge Items Patient Disposition: Home - Self-Care Reason For Visit: LEFT SIDED WEAKNESS Discharge Diagnosis: COMPLEX MIGRAINE Discharge Goals: Decrease discomfort, Improve disease control and Improve function Activity: Per 'Additional Instructions' section Non-emergency contact: Primary Care Provider Call non-emergency contact if: your symptoms worsen and you have a fever Follow-up/Referrals: Curtis Bacon III, MD [Physician] - 11/24/18 2:00 pm (follow up appointment at the neurologist office with the physician pharmacy assistant, Lara) Padilla Aguilar MD [Primary Care Provider] - 11/03/18 12:50 pm (follow up appointment at your primary care physician office with Dr. Parks) Diet: Regular Addtl Provider Instructions: You were admitted because you had a complex migraine. A stroke has been ruled out. We suspect that this migraine and the similar one you had back in April are stress related, likely due to your job. Please consider what we talked about, including probably switching positions to a less stressful environment. We are also discharging you with a new medication called Verapamil that can help prevent these complex migraines. Please take every morning as directed. We are also increasing your Sertraline dose to 200mg as we think this might be beneficial to you as well in terms of helping your anxiety and depression. We advise staying home from work for the rest of the week to help with your recovery. We will provide you with paperwork for that. We also advise close followup with your primary care provider Dr. Aguilar, and either Dr. Bell or Dr. Sears in the same office for OMT manipulation to help with your headaches. Close followup with Dr. aguilar should be scheduled within the week after discharge. We also advise that you keep your followup appointment with neurology after discharge. Should your symptoms return or worsen, please go to the nearest emergency room. Prescriptions: New verapamil 180 mg tablet extended release 180 mg PO QAM 30 Days Qty: 30 RF: 0 sertraline 100 mg tablet 200 mg PO DAILY 30 Days Qty: 60 RF: 0 Continued chlorthalidone 50 mg tablet 50 mg PO QAM RF: 0 gabapentin 300 mg capsule 300 mg PO HS RF: 0 azelastine 137 mcg (0.1 %) aerosol,spray 2 spray Intranasal BID RF: 0 bupropion HCl [Wellbutrin SR] 150 mg tablet sustained-release 12 hr 150 mg PO BID RF: 0 albuterol sulfate 90 mcg/actuation HFA aerosol inhaler 2 - 4 puff Inhalation Q4 PRN (Reason: Shortness Of Breath Or Wheezing) RF: 0 atorvastatin 40 mg Tablet 40 mg PO QAM Qty: 30 RF: 0 aspirin [Ecotrin Low Strength] 81 mg Tablet,Delayed Release (Dr/Ec) 81 mg PO QAM Qty: 30 RF: 0 lorazepam 2 mg tablet 1 - 2 mg PO BID PRN (Reason: Anxiety) RF: 0 amlodipine 10 mg tablet 10 mg PO DAILY RF: 0 Discontinued carvedilol [Coreg] 12.5 mg tablet 12.5 mg PO BID RF: 0 sertraline 100 mg tablet 150 mg PO QAM RF: 0 Stand-Alone Forms: [facility], Work/School Release (Inpt) Discharge Orders: Discharge Order (Routine); Ordered 11/01/18 Ordered By: Danna Eldridge Admission Data Admit Date/Time: 10/31/18 14:01 Attending Provider: Zoran Tong Admit Provider: Danna Eldridge Primary Care Provider: Padilla Aguilar Other Providers: Curtis Bacon III Service: Telemetry Medical Other Interventions: Discharge Summary Assessment (RN) Last Done: 11/01/18 14:17 DC Date/Time DO NOT enter until pt leaves facility: 11/01/18 17:19 Supervising Physician Co-Signing Physician Notes I personally examined the patient and verified all sánchez points of history and exam, discussed case, and agree with decision making with Dr Eldridge. feeling better - still has a headache but improved. no numbness/weakness. vitals noted nad, fatigued appearing. no focal neuro deficits. ost - L>R suboccipitals high tone/tender/decreased ROM - inhibitory pressure - improved. pt tolerated well. complicated/transformed migraine -change coreg to verapamil, stable for home. -stress seems to be a significant trigger, discussed that job stress often does not get better wtihout changing job situation. anxiety/depression - increase sertraline may help a little, but most importantly work on job situation as above somatic dysfunction cervical - OMT as above. within PCP's office 2 residents are DO's quite skilled at OMT - rec'd to pt that she continue to have regular OMT to work on this with one of them, in addition to her f/u w Dr Aguilar. stable for home. otherwise as above Resident Activity Tracking Resident Involvement: Resident Care Provided Care Provided: Adult Hospital Medicine
== END 2018-11-01 17:19 | disposition home or self-care (01) | DRG 103 ==
LOC: ED 11:27 → 2W 14:01

== ENCOUNTER 2019-09-08 04:58 | Inpatient (IN) ==
[2019-09-08] MEDS ORDERED: SODIUM CHLORIDE 0.9% 1000ML 1,000 ML IV ONE (05:22)
[2019-09-08] MEDS ORDERED: MoRPHine SULFATE 10 MG/ML CARP/VIAL IV STA (05:22)
[2019-09-08] MEDS ORDERED: ONDANSETRON INJ 2 MG/ML 2 ML VIAL IV STA (05:22)
[2019-09-08 05:34] LABS: Basophils # (auto) 0.05 K/uL (0-0.2); Basophils % (auto) 0.5 %; Eosinophils # (auto) 0.25 K/uL (0-0.5); Eosinophils % (auto) 2.5 %; Hematocrit (blood only) 45.5 % (37-47); Hemoglobin 15.4 g/dL (12.0-16.0); Immature Granulocytes # (auto) 0.02 K/uL (0.00-0.02); Immature Granulocytes % (auto) 0.2 %; Lymphocytes # (auto) 3.52 K/uL (1.2-3.4); Lymphocytes % (auto) 35.6 %; Mean Corpuscular Hemoglobin 30.2 pg (25-34); Mean Corpuscular Hgb Conc 33.8 g/dL (32-36); Mean Corpuscular Volume 89.2 fL (80-100); Mean Platelet Volume 10.5 fL (7.4-10.4); Monocytes % (auto) 8.1 %; Neutrophils # (auto) 5.24 K/uL (1.4-6.5); Neutrophils % (auto) 53.1 %; Platelet Count 212 K/uL (130-400); RDW Coefficient of Variation 13.2 % (11.5-14.5); RDW Standard Deviation 43.2 fL (36.4-46.3); White Blood Count 9.88 K/uL (4.8-10.8)
--- NOTE | 2019-09-08 05:36 | Emergency Department Note ---
History of Present Illness General Chief complaint: Abdominal Pain Stated complaint: STOMACH PAIN,LFT SIDE PAIN,NAUSEA Time Seen by Provider: 09/08/19 05:12 Source: patient Mode of arrival: ambulatory Limitations: no limitations History of Present Illness Maximum Pain Intensity: 8 This patient is a 58-year-old female who presents to the emergency department for evaluation of upper abdominal pain. Patient states that she has had pain for a few days, but reports that the pain worsened last night. She states the pain is in her upper abdomen with radiation into the left side and flank. Pain is sharp and she rates her discomfort an 8/10. She has had associated nausea but has not vomited. She states that pain has been worsened with eating. Nothing has improved the pain. She does report she was recently diagnosed with a UTI and finished her Bactrim today. Urinary symptoms have resolved. She denies any fevers, cough, chest pain or shortness of breath. She denies any changes in her bowel movements. She does note she has had some chronic abdominal issues over the past several months and is scheduled for a colonoscopy in a few weeks. She denies any history of pain similar to this. She does not drink alcohol. Home Medications Home Medications Medication Instructions Recorded Confirmed Type chlorthalidone 50 mg PO QAM 01/19/18 09/08/19 History gabapentin 300 mg PO HS 01/19/18 09/08/19 History albuterol sulfate 2 - 4 puff INHALATION Q4 PRN 04/13/18 09/08/19 History bupropion HCl [Wellbutrin SR] 150 mg PO BID 04/13/18 09/08/19 History aspirin [Ecotrin Low Strength] 81 mg PO QAM #30 tab 04/16/18 09/08/19 Rx atorvastatin 40 mg PO QAM #30 tab 04/16/18 09/08/19 Rx lorazepam 1 - 2 mg PO BID PRN 10/31/18 09/08/19 History carvedilol 25 mg PO Q12H 09/08/19 09/08/19 History hydroxyzine HCl 10 mg PO HS 09/08/19 09/08/19 History sertraline 200 mg PO DAILY 09/08/19 09/08/19 History topiramate 50 mg PO DAILY 09/08/19 09/08/19 History Allergies Allergy/AdvReac Type Severity Reaction Status Date / Time sumatriptan AdvReac Intermediate PALPITATION Verified 09/08/19 05:36 S Past Med/Surg History Medical History (Updated 09/08/19 @ 07:44 by Di Arias PA-C) Anxiety Chronic renal disease, stage III (Chronic) Fibromyalgia Hyperlipidemia Hypertension Hypertension Kidney stones Migraine Ovarian cyst Rheumatoid arthritis (Chronic) Vertebral artery dissection (Acute) Nisreen Nelson is a 57 yo F with PMH significant for hx of complex migraines, anxiety, HTN, HLD and recent memory loss who presents for acute onset weakness and confusion, notably tingling in L arm, R hand, garbled speech, and weakness of her legs. She was found to have R vertebral artery dissection in ED, with no signs of acute stroke on CT nor MRI. DDX of her symptoms includes vert artery dissection v. TIA v. complex migraine. 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 These deficits are not permanent in vertebral artery dissection since there is no infarction. Surgical History H/O section H/O total knee replacement H/O: hysterectomy History of cholecystectomy History of tonsillectomy Family History (Updated 11/01/18 @ 10:24 by Alberto Bacon MD) Mother , early 80s from bone cancer. COPD (chronic obstructive pulmonary disease) Father , age 66 of prostate cancer. 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 [place] Feels Safe at Home: Yes Smoking Status: Never smoker Second Hand Exposure: No ; Hx Alcohol Use: No Hx Substance Use: No Review of Systems A total of 10 systems reviewed and were otherwise negative Physical Exam Vital Signs Vital Signs - 24 hr 09/08/19 05:06 09/08/19 06:22 09/08/19 06:30 Temperature 36.6 C Temperature Source Oral Pulse Rate 78 65 Pulse Rate [Finger] 76 Pulse Rhythm [Finger] Regular Respiratory Rate 24 20 13 Respiratory Effort / Characteristics Non-Labored Spontaneous Respiratory Depth Shallow Normal Respiratory Pattern Regular Blood Pressure 114/79 99/62 L Blood Pressure [Left Arm] 119/80 Blood Pressure Mean 90 66 Blood Pressure Mean [Left Arm] 93 Blood Pressure Position [Left Arm] Lying Pulse Oximetry 97 99 Oxygen Delivery Method Room Air Room Air Sepsis Recent Fever Within 48 Hours No Sepsis New/Unexplained Change in Mental Status No Sepsis Action Taken by Nursing No Action Required VITALS: Vitals are noted on the nurse's note and reviewed by myself. Vital signs stable. GENERAL: This is a 58-year-old female, in no acute distress, nondiaphoretic, well-developed well-nourished. SKIN: The skin was without rashes. EARS: External auditory canals clear, tympanic membranes pearly leavitt without erythema or effusion bilaterally. EYES: Pupils equal round and reactive to light and accommodation. No scleral icterus. MOUTH: Mucous membranes moist. Tonsils are not enlarged. Pharynx without erythema or exudate. NECK: Supple without nuchal rigidity. No lymphadenopathy. HEART: Regular rate and rhythm without murmurs gallops or rubs. LUNGS: Clear to auscultation bilaterally without wheezes, rales or rhonchi. No retractions or accessory muscle use. ABDOMEN: Positive bowel sounds x 4. Abdomen is soft and nondistended. There is moderate tenderness to palpation in the epigastric region and left upper quadrant with some guarding. No rebound tenderness. NEURO: Patient was alert and oriented to person place and time. Course Reevaluation(s) Reevaluation #1: Patient returned from CT scan and was having some increased pain. She was given a dose of Dilaudid. Reevaluation #2: Patient was reevaluated and states that she is still having pain which she rates a 7/10. A GI cocktail was ordered. Reevaluation #3: Patient reevaluated and did not have much of a change in symptoms after the GI cocktail. Consultations Consultation #1: Dr. Veloz - [facility] [place] hospitalist Administered Medications Discontinued Medications Al Hydrox/Mg Hydrox/Simethicone () 1 dose PO ONE ONE Stop: 09/08/19 06:43 Last Admin: 09/08/19 06:46 Dose: 1 dose Documented by: [id number] Hydromorphone HCl (Dilaudid) 0.5 mg IV NOW STA Stop: 09/08/19 06:12 Last Admin: 09/08/19 06:18 Dose: 0.5 mg Documented by: [id number] Sodium Chloride (Nss 1000ml) 1,000 mls @ 999 mls/hr IV .Q1H1M ONE Stop: 09/08/19 06:22 Last Infusion: 09/08/19 06:29 Dose: 0 mls/hr Documented by: [id number] Admin: 09/08/19 05:28 Dose: 999 mls/hr Documented by: [id number] Morphine Sulfate (Morphine Sulfate) 6 mg IV NOW STA Stop: 09/08/19 05:23 Last Admin: 09/08/19 05:29 Dose: 6 mg Documented by: [id number] Ondansetron HCl (Zofran) 4 mg IV NOW STA Stop: 09/08/19 05:23 Last Admin: 09/08/19 05:29 Dose: 4 mg Documented by: [id number] Medical Decision Making Differential Diagnosis Differential diagnosis includes appendicitis, ovarian cyst, ovarian torsion, ectopic , TOA, PID, infections, diverticulitis, UTI, obstruction, mesenteric ischemia, aortic pathology, inflammatory bowel disease, renal colic, PUD, pancreatitis, biliary pathology, hernia, volvulus, constipation, as well as other pathologies. Medical Records Attestation: I reviewed the patient's medical records. Home Medications Current Medication List: was personally reviewed by me Laboratory Data Attestation: I reviewed the patient's lab results. Result diagrams: 09/08/19 05:14 09/08/19 05:14 Lab Results 09/08/19 09/08/19 09/08/19 Range/Units 05:14 05:14 05:14 WBC 9.88 (4.8-10.8) K/uL RBC 5.10 (4.2-5.4) M/uL Hgb 15.4 (12.0-16.0) g/dL Hct 45.5 (37-47) % MCV 89.2 (80-100) fL MCH 30.2 (25-34) pg MCHC 33.8 (32-36) g/dL RDW Std Deviation 43.2 (36.4-46.3) fL RDW Coeff of Kylie 13.2 (11.5-14.5) % Plt Count 212 (130-400) K/uL MPV 10.5 H (7.4-10.4) fL Immature Gran % (Auto) 0.2 % Neut % (Auto) 53.1 % Lymph % (Auto) 35.6 % [place] % (Auto) 8.1 % Eos % (Auto) 2.5 % Baso % (Auto) 0.5 % Immature Gran # (Auto) 0.02 (0.00-0.02) K/uL Neut # (Auto) 5.24 (1.4-6.5) K/uL Lymph # (Auto) 3.52 H (1.2-3.4) K/uL [place] # (Auto) 0.80 H (0.11-0.59) K/uL Eos # (Auto) 0.25 (0-0.5) K/uL Baso # (Auto) 0.05 (0-0.2) K/uL Sodium 139 (136-145) mmol/L Potassium 3.3 L (3.5-5.1) mmol/L Chloride 106 (98-107) mmol/L Carbon Dioxide 25 (21-32) mmol/L Anion Gap 8.0 (3-11) BUN 31 H (7-18) mg/dl Creatinine 1.91 H (0.6-1.2) mg/dl Est Cr Clr Drug Dosing 30.4 ml/min Est GFR ( Amer) 33.1 Est GFR (Non-Af Amer) 28.6 BUN/Creatinine Ratio 16.4 (10-20) Glucose 90 (70-99) mg/dl Calcium 9.3 (8.5-10.1) mg/dl Total Bilirubin 0.3 (0.2-1) mg/dl AST 27 (15-37) U/L ALT 20 (12-78) U/L Alkaline Phosphatase 75 (45-117) U/L Total Protein 7.9 (6.4-8.2) gm/dl Albumin 4.7 (3.4-5.0) gm/dl Globulin 3.2 (2.5-4.0) gm/dl Albumin/Globulin Ratio 1.5 (0.9-2) Lipase 275 (73-393) U/L Urine Color Yellow Urine Appearance Clear (Clear) Urine pH 5.5 (4.5-7.5) Ur Specific [place] 1.026 (1.000-1.030) Urine Protein Negative (Negative) Urine Glucose (UA) Negative (Negative) Urine Ketones Negative (Negative) Urine Blood 1+ H (Negative) Urine Nitrite Negative (Negative) Urine Bilirubin Negative (Negative) Urine Urobilinogen Negative (Negative) Ur Leukocyte Esterase Negative (Negative) Urine WBC (Auto) 1-5 (0-5) /hpf Urine RBC (Auto) 5-10 H (0-4) /hpf U Hyaline Cast (Auto) 1-5 (0-5) /lpf U Epithel Cells (Auto) 10-20 H (0-5) /lpf Urine Bacteria (Auto) Negative (Negative) Imaging Data Attestation: I personally reviewed and interpreted this imaging study as follows: Radiologist's Impression: CT ABDOMEN & PELVIS Without Contrast: Comparison with CT from 08/23/15. No appendicitis, inflammatory changes of bowel or bowel obstruction. No free fluid. No free air. Aorta, liver, spleen, pancreas, kidneys are unremarkable except for note of a punctate nonobstructing calculus at the left interpolar level. Prior cholecystectomy. Radiologist: Clarence Bautista M.D. ECG Data Attestation: I personally reviewed and interpreted this ECG as follows: Indication: + abdominal pain Rate (beats per minute): 67 Rhythm: + normal sinus ECG Intervals/blocks: + Normal QRS ECG [place]: + Normal ECG ST segments: + Normal ST segments Change: no significant change Blood Pressure Blood Pressure Findings: Normal blood pressure MDM Narrative The patient is a 58-year-old female who presents today complaining of upper abdominal pain. Labs revealed no leukocytosis, anemia or concerning electrolyte abnormalities. Patient does have elevation of her creatinine at 1.91. BUN 31. Patient has a history of chronic kidney disease. She was able to pull up her labs from [facility]. Her most recent creatinine there was in May and was 1.3. A CT scan of the patient's abdomen/pelvis was performed and shows no acute findings. Patient required multiple doses of IV pain medication and still seemed very uncomfortable on examination. The etiology of her pain is unclear at this time. There is a possibility that it could be herpes zoster. However, given her significant uncontrolled pain I do feel she warrants further care as an inpatient and possibly GI consultation. Case was discussed with the [facility] hospitalist service who agreed to evaluate the patient Impression & Plan Intractable left upper quadrant abdominal pain, Acute kidney injury Discharge Plan Visit Data Chief Complaint: Abdominal Pain Stated Complaint: STOMACH PAIN,LFT SIDE PAIN,NAUSEA ED Provider: Lizzy Clark ED Midlevel Provider: Di Arias Discharge Problem: Intractable left upper quadrant abdominal pain, Acute kidney injury Forms Stand Alone Forms: [facility] Prescriptions Prescriptions: No Action sertraline 100 mg Tablet 200 mg PO DAILY RF: 0 topiramate 50 mg Capsule,Extended Release 24hr 50 mg PO DAILY RF: 0 carvedilol 25 mg Tablet 25 mg PO Q12H RF: 0 hydroxyzine HCl 10 mg Tablet 10 mg PO HS RF: 0 chlorthalidone 50 mg tablet 50 mg PO QAM RF: 0 gabapentin 300 mg capsule 300 mg PO HS RF: 0 bupropion HCl [Wellbutrin SR] 150 mg tablet sustained-release 12 hr 150 mg PO BID RF: 0 albuterol sulfate 90 mcg/actuation HFA aerosol inhaler 2 - 4 puff Inhalation Q4 PRN (Reason: Shortness Of Breath Or Wheezing) RF: 0 atorvastatin 40 mg Tablet 40 mg PO QAM Qty: 30 RF: 0 aspirin [Ecotrin Low Strength] 81 mg Tablet,Delayed Release (Dr/Ec) 81 mg PO QAM Qty: 30 RF: 0 lorazepam 2 mg tablet 1 - 2 mg PO BID PRN (Reason: Anxiety) RF: 0
[2019-09-08 05:53] LABS: Albumin Level 4.7 gm/dl (3.4-5.0); Appearance Urine Clear (Clear); BUN Creatinine Ratio 16.4 (10-20); Bacteria Urine Automated Negative (Negative); Bilirubin Urine Negative (Negative); Blood Urine 1+ (Negative); Calcium 9.3 mg/dl (8.5-10.1); Color Urine Yellow; Creatinine Clr Calc Pharmacy 30.4 ml/min; Est GFR (African American) 33.1; Est GFR (Non-African American) 28.6; Glucose Urine UA Negative (Negative); Ketones Urine Negative (Negative); Leukocyte Esterase Urine Negative (Negative); Nitrite Urine Negative (Negative); Potassium 3.3 mmol/L (3.5-5.1); Protein Urine Negative (Negative); Specific Gravity Urine 1.026 (1.000-1.030); Urobilinogen Urine Negative (Negative); pH Urine 5.5 (4.5-7.5)
[2019-09-08 05:56] LABS: Albumin Globulin Ratio 1.5 (0.9-2); Bilirubin,Total 0.3 mg/dl (0.2-1); Globulin 3.2 gm/dl (2.5-4.0); Total Protein 7.9 gm/dl (6.4-8.2)
[2019-09-08] MEDS ORDERED: HYDROmorphone INJ 0.5 MG/0.5 ML SYR IV STA ×2 (06:11→07:34)
[2019-09-08] MEDS ORDERED: GI COCKTAIL ED USE PO ONE (06:42)
--- NOTE | 2019-09-08 08:16 | CT Scan Report ---
ABDOMEN AND PELVIS CT WITHOUT CONTRAST CT DOSE: 281.47 mGy.cm HISTORY: Acute upper abdominal pain with nausea upper abdominal pain, nausea TECHNIQUE: Multiaxial CT images of the abdomen and pelvis were performed without contrast. A dose lo wering technique was utilized adhering to the principles of ALARA. COMPARISON STUDY: CT abdomen and pelvis 08/23/2015 FINDINGS: Clear lung bases. No pneumatosis or pneumoperitoneum. Imaged inferior cardiac chambers appear unremar kable. Limited evaluation of the solid abdominal organ without the use of IV contrast. Within the [place] itations of the study the spleen, pancreas, adrenal glands and liver appear unremarkable. Cholecystec rafael. Likely postsurgical extrahepatic biliary ductal dilation. 3 mm nonobstructing calculus of the i nterpolar left kidney. Unremarkable appearance of the right kidney. No ureteral calculi or obstructiv e uropathy. Multiple venous calcifications are noted adjacent to the left ureter and also within the pelvis. Partial distention of the urinary bladder. Hysterectomy. No adnexal mass lesions. No aortic a neurysm or adenopathy. No bowel obstruction or bowel wall thickening. Mild to moderate fecal retention. No ascites or mesent shu inflammation. The appendix is not diagnostically visualized. Small fat filled ventral abdominal wall hernia, diastases 1.8 cm. The bones appear intact. Degenerative changes of the spine, pelvis and hips. IMPRESSION: 1. No acute intra-abdominal or intrapelvic abnormality. 2. Nonobstructing left nephrolithiasis. 3. Mild to moderate fecal retention. 4. Hysterectomy and cholecystectomy. ACT 112: Negative or not required by law. The above report was generated using voice recognition software. It may contain grammatical, syntax o r spelling errors. Electronically signed by: Baldemar Lai M.D. 09/08/2019 8:15 AM
[2019-09-08] MEDS ORDERED: ALBUTEROL HFA 8 GM INHALER INH PRN (09:48)
[2019-09-08] MEDS ORDERED: LORazepam 1 MG TAB PO PRN (09:48)
[2019-09-08] MEDS ORDERED: HYDROmorphone INJ 0.5 MG/0.5 ML SYR ONE (09:54)
[2019-09-08] MEDS ORDERED: ONDANSETRON INJ 2 MG/ML 2 ML VIAL ONE (09:54)
[2019-09-08] MEDS: SODIUM CHLORIDE 0.9% 1000ML 1,000 ML IV SCH ×2 (10:03→21:45)
[2019-09-08] MEDS: SERTRALINE HCL 100 MG TABLET PO SCH (10:42)
[2019-09-08] MEDS: TOPIRAMATE 50 MG TAB PO SCH (10:42)
[2019-09-08] MEDS: HEPARIN SOD 5,000 UNIT/0.5 ML VIAL SQ SCH ×2 (10:42→20:55)
[2019-09-08] MEDS: BuPROPion SR 150 MG TABCR PO SCH ×2 (10:42→20:57)
[2019-09-08 10:44] LABS: INR 1.1 (0.9-1.1); Prothrombin Time 11.3 Seconds (9.0-12.0)
--- NOTE | 2019-09-08 11:56 | History & Physical Report ---
Date of Service September 08, 2019 Assessment & Plan (1) Intractable left upper quadrant abdominal pain: Ddx includes gastritis/gastroenteritis, PUD, cancer, or less likely chronic mesenteric ischemia. - Lactate to rule out acute ischemia - Pain management - Stool testing for infectious causes of diarrhea (C. diff, E. coli, etc.) & for H. pylori - GI consult for possible EGD - NPO - Monitor for signs of bleeding -> Vitals and hbg appear stable at this time. (2) Acute kidney injury: Prior Cr were ~1.1. Per patient, it was up to 1.3 in the spring when checked by PCP. - Cr is now 1.9 on admission. Likely pre-renal from poor PO intake - Hydrate with IV fluids - Monitor (3) Hypertension: BP is normal on admission at 105/80. - Hold home carvedilol & chlorthalidone for normal BP and LUCITA respectively. 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 No present complaints that would indicate active issue. - Will monitor HR and BP as these are the major risk-factors for propagation. (5) Migraine: History of complex migraine that was similar to stroke. - Continue topiramate - Monitor for headaches (6) Anxiety: Presently with anxious affect, though understandable given her current illness. - Continue home sertraline & bupropion (7) DVT prophylaxis: Heparin 5000 units Q12h after procedure to ensure no bleeding Admission and Anticipated Discharge Date Admission Date: September 08, 2019 History of Present Illness Primary Care Provider: Padilla Velez MD 58yo F w/ hx of migraines, vertebral artery dissection, and HTN who presents with epigastric and left flank pain. The pain began in the epigastric region several days ago as a dull pain. Eating makes the pain worse, and she does not have alleviating factors. She reports the pain began to radiate around the left flank and into the back over the last 1-2 days, and the pain has increased substantially. Overall, she notes increased nausea and early satiety, but no emesis. She has had diarrhea starting about 5 months ago that initially was watery, but without blood or melenic components. This has improved over the last few months to having episodes of diarrhea every few days. Still without any blood or dark, tarry elements. She has lost 50 lbs this year (since May) as she gets full very quickly and has nausea with eating. She denies other "B" symptoms such as fevers or night sweats. She denies any chest pain, shortness of breath, or other symptoms. Allergies Allergy/AdvReac Type Severity Reaction Status Date / Time sumatriptan AdvReac Intermediate PALPITATION Verified 09/08/19 05:36 S Home Medications Home Medications Medication Instructions Recorded Confirmed Type chlorthalidone 50 mg PO QAM 01/19/18 09/08/19 History gabapentin 300 mg PO HS 01/19/18 09/08/19 History albuterol sulfate 2 - 4 puff INHALATION Q4 PRN 04/13/18 09/08/19 History bupropion HCl [Wellbutrin SR] 150 mg PO BID 04/13/18 09/08/19 History aspirin [Ecotrin Low Strength] 81 mg PO QAM #30 tab 04/16/18 09/08/19 Rx atorvastatin 40 mg PO QAM #30 tab 04/16/18 09/08/19 Rx lorazepam 1 - 2 mg PO BID PRN 10/31/18 09/08/19 History carvedilol 25 mg PO Q12H 09/08/19 09/08/19 History hydroxyzine HCl 10 mg PO HS 09/08/19 09/08/19 History sertraline 200 mg PO DAILY 09/08/19 09/08/19 History topiramate 50 mg PO DAILY 09/08/19 09/08/19 History Past Med/Surg History Medical History Anxiety Chronic renal disease, stage III (Chronic) Fibromyalgia Hyperlipidemia Hypertension Hypertension Kidney stones Migraine Ovarian cyst Rheumatoid arthritis (Chronic) Vertebral artery dissection (Acute) Nisreen Nelson is a 57 yo F with PMH significant for hx of complex migraines, anxiety, HTN, HLD and recent memory loss who presents for acute onset weakness and confusion, notably tingling in L arm, R hand, garbled sp eech, and weakness of her legs. She was found to have R vertebral artery dissection in ED, with no signs of acute stroke on CT nor MRI. DDX of her symptoms includes vert artery dissection v. TIA v. complex migraine. 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 These deficits are not permanent in vert ebral artery dissection since there is no infarction. Surgical History H/O section H/O total knee replacement H/O: hysterectomy History of cholecystectomy History of tonsillectomy Family History Mother , early 80s from bone cancer. COPD (chronic obstructive pulmonary disease) Father , age 66 of prostate cancer. 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 [place] Other Information That Helps Us Care for You: No Feels Safe at Home: Yes Safety Concerns: Feels Safe At This Time Smoking Status: Never smoker Second Hand Exposure: No ; Hx Alcohol Use: No Hx Substance Use: No Review of Systems Review of Systems: All systems reviewed & are unremarkable except as noted in HPI & below Physical Exam Constitutional: WD/WN, vitals as above Eyes: EOM intact bilaterally; no conjunctival abnormality ENMT: external ear and nose normal, oropharynx normal Neck: trachea midline, no thyromegaly normal visual inspection Respiratory: normal respiratory effort, lungs clear to auscultation no respiratory distress Cardiovascular: RRR, no murmur, no edema Gastrointestinal (Abdomen): Inspection/Auscultation: abdomen normal to inspection; abdomen not distended Percussion/Palpation: + abdomen tender (Epigastric and along left upper quadrant and flank.), + guarding and abdomen soft; abdomen not rigid Musculoskeletal: no cyanosis or clubbing, extremities motor strength 5/5 Skin: no rashes, warm and dry Neurologic: moves all extremities and awake Psychiatric: Orientation: alert, oriented to person and cooperative Results & Data Results & Data ([facility]) Vital Signs (Past 12 Hours) Vital Signs Temp Pulse Pulse Resp BP BP Pulse Ox 09/08/19 10:20 36.8 C 69 18 105/82 98 09/08/19 09:33 71 17 82/51 L 97 09/08/19 08:30 67 17 92/57 L 96 09/08/19 08:00 68 17 90/53 L 96 09/08/19 06:30 65 13 99/62 L 09/08/19 06:22 76 20 119/80 99 09/08/19 05:06 36.6 C 78 24 114/79 97 Code Status & VTE Plan VTE Prophylaxis Plan VTE Prophylaxis will be ordered: Yes PG Care Time/CCT Total # of Minutes Spent Total Time Spent with Patient: Total time spent is greater than 50% in coordination of care (as documented) at patient's floor/unit and/or counseling patient: Coding Level of Care Code 64306 Initial Inpt Care Lvl 3 Diagnoses Intractable left upper quadrant abdominal pain R10.12 Acute kidney injury N17.9 Hypertension I10 Hypertension type: essential hypertension Vertebral artery dissection I77.74 Migraine G43.909 Migraine type: unspecified Status migrainosus presence: without status migrainosus Intractability: not intractable Anxiety F41.9 DVT prophylaxis Z29.9 (1) Hypertension Hypertension type: essential hypertension Qualified Code(s): I10 - Essential (primary) hypertension (2) Migraine Migraine type: unspecified Status migrainosus presence: without status migrainosus Intractability: not intractable Qualified Code(s): G43.909 - Migraine, unspecified, not intractable, without status migrainosus
[2019-09-08] MEDS ORDERED: PROPOFOL IV EMULSION 10 MG/ML 20 ML VIAL IV ONE (13:21)
[2019-09-08] MEDS ORDERED: LIDOCAINE HCL 2% 2 ML VIAL/AMP(20MG/ML) INFIL ONE (13:21)
--- NOTE | 2019-09-08 13:24 | Gastrointestinal Consultation ---
Date of Consultation September 08, 2019 Assessment & Plan (1) Epigastric pain: Plan EGD today to look for etiology of abd pain. Procedure and risks explained which include but not limited to med reaction, bleeding, perforation, aspiration. diarrhea--actually has retained stool on CT so wonder about constipation with overflow diarrhea. Colonoscopy at some point either outpt as scheduled or inpt depending on cliniical course weight loss--see what EGD and colo show. CT no evidence of malignancy. History of Present Illness Reason for Consultation: epigastric pain, diarrhea, weight loss Requesting Physician: Dr Esteban Veloz Attending Physician: Esteban Veloz MD History of Present Illness CC abd pain HPI Pt seen by telemedicine by DR Hernández 08/02/19 reviewed note and at that time was having diarrhea, wt loss of 50 lbs. Fiber therapy recommended and colonoscopy ordered. In the meantime she has developed over last several days epigastris pain up to 8/10. She was on Bactrim for UTI and stopped day of admit. CBC ok, LFTs and lipase normal. CT a/p s/p krystyna, 3 mm left obstructing renal stone, mild to moderate fecal retention. Allergies Allergy/AdvReac Type Severity Reaction Status Date / Time sumatriptan AdvReac Intermediate PALPITATION Verified 09/08/19 05:36 S Home Medications Home Medications Medication Instructions Recorded Confirmed Type chlorthalidone 50 mg PO QAM 01/19/18 09/08/19 History gabapentin 300 mg PO HS 01/19/18 09/08/19 History albuterol sulfate 2 - 4 puff INHALATION Q4 PRN 04/13/18 09/08/19 History bupropion HCl [Wellbutrin SR] 150 mg PO BID 04/13/18 09/08/19 History aspirin [Ecotrin Low Strength] 81 mg PO QAM #30 tab 04/16/18 09/08/19 Rx atorvastatin 40 mg PO QAM #30 tab 04/16/18 09/08/19 Rx lorazepam 1 - 2 mg PO BID PRN 10/31/18 09/08/19 History carvedilol 25 mg PO Q12H 09/08/19 09/08/19 History hydroxyzine HCl 10 mg PO HS 09/08/19 09/08/19 History sertraline 200 mg PO DAILY 09/08/19 09/08/19 History topiramate 50 mg PO DAILY 09/08/19 09/08/19 History Patient History Medical History Anxiety Chronic renal disease, stage III (Chronic) Fibromyalgia Hyperlipidemia Hypertension Hypertension Kidney stones Migraine Ovarian cyst Rheumatoid arthritis (Chronic) Vertebral artery dissection (Acute) Nisreen Nelson is a 57 yo F with PMH significant for hx of complex migraines, anxiety, HTN, HLD and recent memory loss who presents for acute onset weakness and confusion, notably tingling in L arm, R hand, garbled speech, and weakness of her legs. She was found to have R vertebral artery dissection in ED, with no signs of acute stroke on CT nor MRI. DDX of her symptoms includes vert artery dissection v. TIA v. complex migraine. 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 These deficits are not permanent in vertebral artery dissection since there is no infarction. Surgical History H/O section H/O total knee replacement H/O: hysterectomy History of cholecystectomy History of tonsillectomy Family History Mother , early 80s from bone cancer. COPD (chronic obstructive pulmonary disease) Father , age 66 of prostate cancer. 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 [place] Other Information That Helps Us Care for You: No Feels Safe at Home: Yes Safety Concerns: Feels Safe At This Time Smoking Status: Never smoker Second Hand Exposure: No ; Hx Alcohol Use: No Hx Substance Use: No Review of Systems Review of Systems: All systems reviewed & are unremarkable except as noted in HPI & below Physical Exam Constitutional: WD/WN, vitals as above Eyes: PERRL, conjunctivae normal, anicteric sclerae ENMT: external ear and nose normal, oropharynx normal Neck: normal visual inspection and trachea midline Respiratory: normal respiratory effort, lungs clear to auscultation Cardiovascular: RRR, no murmur, no edema Gastrointestinal (Abdomen): positive bowel sound, soft, no guarding nor rebound Musculoskeletal: no cyanosis or clubbing, extremities motor strength 5/5 Skin: normal turgor Neurologic: PERRL, EOMI, accommodation nl, no face palsy, no dysarthria Psychiatric: A+Ox3, euthymic affect Results & Data ([facility]) Vital Signs (Past 12 Hours) Vital Signs Temp Pulse Pulse Resp BP BP Pulse Ox 09/08/19 13:04 37 C 67 18 118/72 96 09/08/19 10:20 36.8 C 69 18 105/82 98 09/08/19 09:33 71 17 82/51 L 97 09/08/19 08:30 67 17 92/57 L 96 09/08/19 08:00 68 17 90/53 L 96 09/08/19 06:30 65 13 99/62 L 09/08/19 06:22 76 20 119/80 99 09/08/19 05:06 36.6 C 78 24 114/79 97
--- NOTE | 2019-09-08 13:24 | Anesthesiology Consultation ---
Date of Service September 08, 2019 Assessment & Plan (1) Encounter for pre-operative examination: Chart Review Chart Review: Acceptable Risk for Surgery Consults Requested none ASA ASA3 Proposed Anesthesia Anesthesia Type: MAC Risk / Benefits Reviewed With: PT / POA / Parent / Guardian, Accepts Plan and Informed Consent Obtained History Surgery Operation Date: 09/08/19 15:30 Proposed Procedures p Esophagogastroduodenoscopy Dr Jose Luis Amaya Height/Weight Height: 5 ft 6 in Weight: 59.5 kg Allergies Allergy/AdvReac Type Severity Reaction Status Date / Time sumatriptan AdvReac Intermediate PALPITATION Verified 09/08/19 05:36 S Medications Home Medications Medication Instructions Recorded Confirmed Last Taken chlorthalidone 50 mg PO QAM 01/19/18 09/08/19 10/31/18 gabapentin 300 mg PO HS 01/19/18 09/08/19 06/21/18 albuterol sulfate 2 - 4 puff INHALATION Q4 PRN 04/13/18 09/08/19 Unknown bupropion HCl [Wellbutrin SR] 150 mg PO BID 04/13/18 09/08/19 10/31/18 aspirin [Ecotrin Low Strength] 81 mg PO QAM #30 tab 04/16/18 09/08/19 10/31/18 atorvastatin 40 mg PO QAM #30 tab 04/16/18 09/08/19 10/31/18 lorazepam 1 - 2 mg PO BID PRN 10/31/18 09/08/19 10/31/18 carvedilol 25 mg PO Q12H 09/08/19 09/08/19 Unknown hydroxyzine HCl 10 mg PO HS 09/08/19 09/08/19 Unknown sertraline 200 mg PO DAILY 09/08/19 09/08/19 Unknown topiramate 50 mg PO DAILY 09/08/19 09/08/19 Unknown Active Medications Generic Name Dose Route Start Last Admin Trade Name Freq PRN Reason Stop Dose Admin Bupropion HCl 150 mg 09/08/19 09:48 09/08/19 10:42 Wellbutrin-Sr PO 10/08/19 09:47 Not Given BID [facility] Heparin Sodium (Porcine) 5,000 units 09/08/19 09:48 09/08/19 10:42 Heparin Sodium (Porcine) SQ 10/08/19 09:47 Not Given Q12 NATTY Sodium Chloride 1,000 mls @ 80 mls/hr 09/08/19 09:48 09/08/19 10:03 Nss 1000ml IV 10/08/19 09:47 80 mls/hr .[id number] NATTY Administration Sertraline HCl 200 mg 09/08/19 09:48 09/08/19 10:42 Zoloft PO 10/08/19 09:47 Not Given DAILY NATTY Topiramate 50 mg 09/08/19 09:48 09/08/19 10:42 Topamax PO 10/08/19 09:47 Not Given DAILY NATTY NPO Date Last Intake of Fluids: 09/07/19 Time Last Intake of Fluids: 20:00 Last Intake of Fluids Comment: water Date Last Intake of Solids: 09/07/19 Time Last Intake of Solids: 17:00 Past Medical History Medical History Anxiety Chronic renal disease, stage III (Chronic) Fibromyalgia Hyperlipidemia Hypertension Hypertension Kidney stones Migraine Ovarian cyst Rheumatoid arthritis (Chronic) Vertebral artery dissection (Acute) Nisreen Nelson is a 57 yo F with PMH significant for hx of complex migraines, anxiety, HTN, HLD and recent memory loss who presents for acute onset weakness and confusion, notably tingling in L arm, R hand, garbled speech, and weakness of her legs. She was found to have R vertebral artery dissection in ED, with no signs of acute stroke on CT nor MRI. DDX of her symptoms includes vert artery dissection v. TIA v. complex migraine. 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 These deficits are not permanent in vertebral artery dissection since there is no infarction. Exercise / Class Metabolic Activity II 4-5 Yardwork/Stairs/Walk up hill Past Family History Family History Mother , early 80s from bone cancer. COPD (chronic obstructive pulmonary disease) Father , age 66 of prostate cancer. Prostate cancer Hypertension Myocardial infarction Other Cancer Past Surgical History Surgical History H/O section H/O total knee replacement H/O: hysterectomy History of cholecystectomy History of tonsillectomy Past Anesthesia History No Hx of Anesthesia Complications History of PONV No Hx of PONV Social History Smoking Status: Never smoker Hx Alcohol Use: No Hx Substance Use: No substance use type: does not use Review of Systems Negative for chest pain or shortness of breath. Patient denies active symptoms of GERD. Physical Exam Vital Signs Last Vital Signs Temp 37 C 09/08/19 13:04 Pulse 67 09/08/19 13:04 Resp 18 09/08/19 13:04 BP 118/72 09/08/19 13:04 Pulse Ox 96 09/08/19 13:04 Constitutional not obese ENMT Mouth: no TMJ abnormality and oral opening not small Thyromental Distance: > or= 3.5 Finger Breadths Mallampati Class: II Neck normal visual inspection; neck extension not limited Respiratory normal respiratory effort Auscultation: lungs clear to auscultation bilaterally Cardiovascular Rate/Rhythm: regular rate and regular rhythm Heart Sounds: no murmur Neurologic moves all extremities Psychiatric Orientation: alert and oriented x 3 Testing Laboratory Results 09/08/19 05:14 09/08/19 05:14 PT 11.3 Seconds (9.0-12.0) 09/08/19 10:15 INR 1.1 (0.9-1.1) 09/08/19 10:15 Urine Color Yellow 09/08/19 05:14 Urine Appearance Clear (Clear) 09/08/19 05:14 Urine pH 5.5 (4.5-7.5) 09/08/19 05:14 Ur Specific [place] 1.026 (1.000-1.030) 09/08/19 05:14 Urine Protein Negative (Negative) 09/08/19 05:14 Urine Glucose (UA) Negative (Negative) 09/08/19 05:14 Urine Ketones Negative (Negative) 09/08/19 05:14 Urine Nitrite Negative (Negative) 09/08/19 05:14 Ur Leukocyte Esterase Negative (Negative) 09/08/19 05:14 Urine WBC (Auto) 1-5 /hpf (0-5) 09/08/19 05:14 Urine RBC (Auto) 5-10 /hpf (0-4) H 09/08/19 05:14 U Hyaline Cast (Auto) 1-5 /lpf (0-5) 09/08/19 05:14 U Epithel Cells (Auto) 10-20 /lpf (0-5) H 09/08/19 05:14 Urine Bacteria (Auto) Negative (Negative) 09/08/19 05:14
--- NOTE | 2019-09-08 13:46 | Post Operative Brief Note ---
Immediate Post Op Note v1 Date of Surgery September 08, 2019 Pre & Post Diagnosis Operation Date: 09/08/19 15:30 Pre-Op Diagnosis: Severe abdominal pain I identified the patient and participated in the time-out.: Yes Procedure Operation Date: 09/08/19 15:30 <No data on this case meets the specified criteria> EGD. Erosive gastritis noted in antrum bx. 2nd duod normal bx, Recommend PPI. Trial clear liquids. Surgeon Jignesh Amaya St[employer]cher [employer] see formal report Estimated Blood Loss 2 Findings See Below
--- NOTE | 2019-09-08 13:54 | GI REPORT ---
Patient Name: Nisreen Nelson Procedure Date: 09/08/2019 12:45 PM Date of : 1960 Admit Type: Inpatient Age: 58 Gender: Female Attending MD: Jignesh Amaya MD Procedure: Upper GI endoscopy Providers: Jignesh Amaya MD Referring MD: Victor Hugo Velez Indications: Epigastric abdominal pain, Diarrhea Medicines: Monitored Anesthesia Care Complications: No immediate complications. Estimated blood loss: Minimal. Estimated Blood Loss: Estimated blood loss was minimal. Procedure: Pre-Anesthesia Assessment: - Patient identification and proposed procedure were verified prior to the procedure by the physician, the nurse and the filling station laborer. The procedure was verified in the procedure room. After obtaining informed consent, the endoscope was passed under direct vision. Throughout the procedure, the patient's blood pressure, pulse, and oxygen saturations were monitored continuously. The Endoscope was introduced through the mouth, and advanced to the second part of duodenum. The upper GI endoscopy was accomplished without difficulty. The patient tolerated the procedure well. Procedure and risks explained to patient which include but not limited to medication reaction, bleeding, perforation, aspiration , and missed lesions. Judicious gas insufflation was used and gas removal done on the way out. The lumen was always visualized when advancing the scope. Prep was good. Washes and suctioning used as needed to get good visualization of the mucosa. Retroflexion to look at the fundus and cardia of the stomach and GE junction was done. Findings: The Z-line was regular and was found 40 cm from the incisors. Scattered moderate inflammation characterized by erosions was found in the gastric antrum. Biopsies were taken with a cold forceps for Helicobacter pylori testing. Estimated blood loss was minimal. The second portion of the duodenum was normal. Biopsies for histology were taken with a cold forceps for evaluation of celiac disease. Estimated blood loss was minimal. The exam was otherwise without abnormality. Impression: - Z-line regular, 40 cm from the incisors. - Gastritis. Biopsied. - Normal second portion of the duodenum. Biopsied. - The examination was otherwise normal. Recommendation: - [facility]. - Await path. Start Protonix 40 mg po bid. Jignesh Amaya M.D. Jignesh Amaya MD 09/08/2019 1:54:15 PM This report has been signed electronically. Note Initiated On: 09/08/2019 12:45 PM Number of Addenda: 0 I attest to the content of the Intraoperative Record and orders documented therein, exceptions below {[id number]}
[2019-09-08] MEDS: HYDROmorphone INJ 0.5 MG/0.5 ML SYR IV PRN ×3 (14:34→21:44)
[2019-09-08] MEDS: ONDANSETRON INJ 2 MG/ML 2 ML VIAL IV PRN ×2 (14:34→19:26)
--- NOTE | 2019-09-08 14:50 | Anesthesiology Progress Note ---
Date of Service September 08, 2019 Anesthesia Post Procedure Vital Signs Vital Signs: Temp Pulse Pulse Resp BP BP Pulse Ox 09/08/19 14:29 63 16 119/76 96 09/08/19 14:17 63 18 109/75 96 09/08/19 14:02 68 18 112/77 100 09/08/19 13:47 68 16 107/66 99 09/08/19 13:04 37 C 67 18 118/72 96 09/08/19 10:20 36.8 C 69 18 105/82 98 09/08/19 09:33 71 17 82/51 L 97 09/08/19 08:30 67 17 92/57 L 96 09/08/19 08:00 68 17 90/53 L 96 09/08/19 06:30 65 13 99/62 L 09/08/19 06:22 76 20 119/80 99 09/08/19 05:06 36.6 C 78 24 114/79 97 Pain Intensity Left Flank: Pain Intensity: 5 Abdomen: Pain Intensity: 7 Transfer of Care Handoff Completed per policy Notes Mental Status: alert / awake / arousable and participated in evaluation Nausea / Vomiting: adequately controlled Pain: adequately controlled Airway Patency, RR, SpO2: stable & adequate BP & HR: stable & adequate Hydration State: stable & adequate Anesthetic Complications: no major complications apparent and Pt Satisfied with anesthetic care
--- NOTE | 2019-09-08 15:28 | Electrocardiogram Report ---
Test Reason : Blood Pressure : / mmHG Vent. Rate : 067 BPM Atrial Rate : 067 BPM P-R Int : 172 ms QRS Dur : 080 ms QT Int : 450 ms P-R-T Axes : 069 057 065 degrees QTc Int : 475 ms Poor data quality, interpretation may be adversely affected Normal sinus rhythm Nonspecific ST abnormality Abnormal ECG When compared with ECG of 31-OCT-2018 12:05, AK interval has decreased Confirmed by Judah Strickland ([id number]) on 09/08/2019 3:28:41 PM Referred By: REFERRED SELF Confirmed By:Judah Strickland
[2019-09-08] MEDS: PANTOprazole 40 MG TAB PO SCH ×2 (18:00→20:57)
[2019-09-08] MEDS: hydrOXYzine HCl 10 MG TAB PO SCH (20:57)
[2019-09-08] MEDS: GABAPENTIN 300 MG CAP PO SCH (20:58)
[2019-09-08] MEDS: ACETAMINOPHEN 325 MG TAB PO PRN (20:58)
[2019-09-09] MEDS: ACETAMINOPHEN 325 MG TAB PO PRN (00:30)
[2019-09-09] MEDS ORDERED: SODIUM CHLORIDE 0.9% 1000ML 1,000 ML IV ONE (02:55)
[2019-09-09] MEDS: HYDROmorphone INJ 0.5 MG/0.5 ML SYR IV PRN ×2 (03:14→08:32)
[2019-09-09] MEDS: BuPROPion SR 150 MG TABCR PO SCH ×2 (08:24→21:31)
[2019-09-09] MEDS: SERTRALINE HCL 100 MG TABLET PO SCH (08:24)
[2019-09-09] MEDS: TOPIRAMATE 50 MG TAB PO SCH (08:25)
[2019-09-09] MEDS: PANTOprazole 40 MG TAB PO SCH ×2 (08:25→21:31)
[2019-09-09] MEDS: HEPARIN SOD 5,000 UNIT/0.5 ML VIAL SQ SCH ×2 (08:28→21:31)
[2019-09-09] MEDS: ONDANSETRON INJ 2 MG/ML 2 ML VIAL IV PRN ×3 (08:34→20:08)
[2019-09-09 08:59] LABS: Hemoglobin 12.8 g/dL (12.0-16.0); Mean Corpuscular Hemoglobin 30.7 pg (25-34); Mean Corpuscular Hgb Conc 33.7 g/dL (32-36); Mean Corpuscular Volume 91.1 fL (80-100); Mean Platelet Volume 10.2 fL (7.4-10.4); Platelet Count 138 K/uL (130-400); RDW Coefficient of Variation 13.4 % (11.5-14.5); RDW Standard Deviation 44.5 fL (36.4-46.3); Red Blood Count 4.17 M/uL (4.2-5.4); White Blood Count 4.46 K/uL (4.8-10.8)
[2019-09-09 09:34] LABS: Albumin Globulin Ratio 1.3 (0.9-2); Albumin Level 3.5 gm/dl (3.4-5.0); BUN Creatinine Ratio 10.4 (10-20); Bilirubin,Total 0.5 mg/dl (0.2-1); Calcium 8.3 mg/dl (8.5-10.1); Creatinine Clr Calc Pharmacy 42.7 ml/min; Est GFR (African American) 49.9; Est GFR (Non-African American) 43.1; Globulin 2.7 gm/dl (2.5-4.0); Magnesium 2.2 mg/dl (1.8-2.4); Phosphorus 2.7 mg/dl (2.5-4.9); Potassium 3.5 mmol/L (3.5-5.1); Total Protein 6.2 gm/dl (6.4-8.2)
[2019-09-09] MEDS ORDERED: MoRPHine SULFATE 2 MG/ML CARP IV PRN (10:03)
--- NOTE | 2019-09-09 11:46 | Gastroenterology Progress Note ---
Date of Service September 09, 2019 Assessment & Plan (1) Epigastric pain: about the same. Severity not explained by gastritis. Renal stone does not explain. Next test for GI complaints is colonoscopy so will see if that explains it. Spoke with DR Veloz who is going to workup for possible abdominal migraines. Erosive gastritis--can explain some epigastric pain but does not seem adequate for overall pain. Path pending. Continue PPI. Hold ASA. diarrhea--actually has retained stool on CT so wonder about constipation with overflow diarrhea. Colonoscopy plan for wednesday. Not sure how well she will tolerate prep so will do clears for 2 days with half prep today and half tomorrow. weight loss--EGD not explanatory. . CT no evidence of malignancy. See what colonoscopy shows. Admission and Anticipated Discharge Date Admission Date: September 08, 2019 Subjective cc abd pain HPI Perhaps slight improvement in abd pain. Still nauseated. Was able to handle clear liquid diet Review of Systems Respiratory: no dyspnea Cardiovascular: no chest pain Physical Exam Respiratory: normal respiratory effort, lungs clear to auscultation Cardiovascular: RRR, no murmur, no edema Gastrointestinal (Abdomen): pos bs, soft, point tenderness with guarding in epigastrium but no rebound. Psychiatric: A+Ox3, euthymic affect Results & Data ([facility]) Vital Signs (Past 12 Hours) Vital Signs Temp Pulse Resp BP Pulse Ox 09/09/19 07:20 36.8 C 78 16 96/64 L 97 09/09/19 04:25 104/67 09/09/19 02:48 68 98/62 L 09/09/19 00:27 37.2 C 75 18 97/61 L 92
[2019-09-09] MEDS: SODIUM CHLORIDE 0.9% 1000ML 1,000 ML IV SCH (12:12)
[2019-09-09] MEDS ORDERED: KETOROLAC TROMETHAMINE 15 MG/ML VIAL IV STA (12:34)
[2019-09-09] MEDS ORDERED: METOCLOPRAMIDE HCL INJ 5 MG/ML 2 ML VIAL IV STA (12:34)
--- NOTE | 2019-09-09 12:39 | Hospitalist Progress Note ---
Date of Service September 09, 2019 Assessment & Plan (1) Intractable left upper quadrant abdominal pain: EGD on 09/07 showed moderate erosive gastritis. Biopsies for celiac disease and H. pylori are pending. Pain has not changed though. Considering as well IBS vs. abdominal migraine. - Pain management - Stool testing for infectious causes of diarrhea (C. diff, E. coli, etc.) & for H. pylori antigen are all pending -> No BM since admission. - GI consulted -> Plan for colonoscopy on Wednesday - Prep per GI team (2) Migraine: History of complex migraine that was similar to stroke. - Continue topiramate - Monitor for headaches -> Reported a headache starting on 09/07. Will trial ketorolac and metoclopramide. Could try ergot as well. If this improves her stomach pain, would increase possibility of abdominal migraine. (3) Acute kidney injury: Prior Cr were ~1.1. Per patient, it was up to 1.3 in the spring when checked by PCP. - Cr is now 1.9 on admission. Likely pre-renal from poor PO intake - Hydrate with IV fluids - Monitor -> Cr down to 1.35 today. (4) Hypertension: BP is low-normal on admission at 95/60. - Holding home carvedilol & chlorthalidone for normal BP and LUCITA respectively. 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 No present complaints that would indicate active issue. - Will monitor HR and BP as these are the major risk-factors for propagation. (6) Anxiety: Presently with anxious affect, though understandable given her current illness. - Continue home sertraline & bupropion (7) DVT prophylaxis: SCDs - Holding heparin for gastritis seen on EGD Admission and Anticipated Discharge Date Admission Date: September 08, 2019 Subjective No major change today. Remains with epigastric and LUQ pain. Some nausea, though she does want solid food because she reports the broth is too salty. Reports no fevers/chills, chest pain, shortness of breath. Physical Exam Constitutional: WD/WN, vitals as above + acute distress Eyes: EOM intact bilaterally; no conjunctival abnormality ENMT: external ear and nose normal, oropharynx normal Neck: trachea midline, no thyromegaly normal visual inspection Respiratory: normal respiratory effort, lungs clear to auscultation no respiratory distress Cardiovascular: RRR, no murmur, no edema Gastrointestinal (Abdomen): Inspection/Auscultation: abdomen normal to inspection; abdomen not distended Percussion/Palpation: + abdomen tender (Epigastric and along left upper quadrant and flank.), + guarding and abdomen soft; abdomen not rigid Musculoskeletal: no cyanosis or clubbing, extremities motor strength 5/5 Skin: no rashes, warm and dry Neurologic: moves all extremities and awake Psychiatric: Orientation: alert, oriented to person and cooperative Results & Data Results & Data ([facility]) Vital Signs (Past 12 Hours) Vital Signs Temp Pulse Resp BP Pulse Ox 09/09/19 07:20 36.8 C 78 16 96/64 L 97 09/09/19 04:25 104/67 09/09/19 02:48 68 98/62 L PG Care Time/CCT Total # of Minutes Spent Total Time Spent with Patient: Total time spent is greater than 50% in coordination of care (as documented) at patient's floor/unit and/or counseling patient: Coding Level of Care Code 21848 Subseq Hosp Care Lvl 3 Diagnoses Intractable left upper quadrant abdominal pain R10.12 Migraine G43.909 Migraine type: unspecified Status migrainosus presence: without status migrainosus Intractability: not intractable Acute kidney injury N17.9 Hypertension I10 Hypertension type: essential hypertension Vertebral artery dissection I77.74 Anxiety F41.9 DVT prophylaxis Z29.9 (1) Hypertension Hypertension type: essential hypertension Qualified Code(s): I10 - Essential (primary) hypertension (2) Migraine Migraine type: unspecified Status migrainosus presence: without status migrainosus Intractability: not intractable Qualified Code(s): G43.909 - Migraine, unspecified, not intractable, without status migrainosus
--- NOTE | 2019-09-09 13:13 | Anesthesiology Progress Note ---
Date of Service September 09, 2019 Anesthesia Post Procedure Vital Signs Vital Signs: Temp Pulse Resp BP Pulse Ox 09/09/19 07:20 36.8 C 78 16 96/64 L 97 09/09/19 04:25 104/67 09/09/19 02:48 68 98/62 L 09/09/19 00:27 37.2 C 75 18 97/61 L 92 09/08/19 15:55 36.5 C 74 18 91/59 L 96 09/08/19 14:29 63 16 119/76 96 09/08/19 14:17 63 18 109/75 96 09/08/19 14:02 68 18 112/77 100 09/08/19 13:47 68 16 107/66 99 Pain Intensity Left Flank: Pain Intensity: 5 Abdomen: Pain Intensity: 7 Head: Pain Intensity: 10 Transfer of Care Handoff Completed per policy Notes Mental Status: alert / awake / arousable and participated in evaluation Nausea / Vomiting: adequately controlled Pain: adequately controlled Airway Patency, RR, SpO2: stable & adequate BP & HR: stable & adequate Hydration State: stable & adequate Anesthetic Complications: no major complications apparent and Pt Satisfied with anesthetic care
--- NOTE | 2019-09-09 13:18 | Ultrasound Report ---
Splenic ultrasound CLINICAL HISTORY: Upper abdominal pain. COMPARISON STUDY: CT scan dated 09/08/2019 FINDINGS: The spleen measures 10.3 cm in length. No focal splenic masses are visualized. There is inc idental 17 mm splenule. There are no perisplenic fluid collections. IMPRESSION: Normal splenic ultrasound. ACT 112: Negative or not required by law. Electronically signed by: Manish Sherman M.D. 09/09/2019 1:16 PM
[2019-09-09] MEDS: POLYETHYLENE (MIRALAX) 17 GM PACK PO SCH (13:42)
[2019-09-09] MEDS ORDERED: METOCLOPRAMIDE HCL INJ 5 MG/ML 2 ML VIAL IV ONE (17:17)
[2019-09-09] MEDS ORDERED: KETOROLAC TROMETHAMINE 15 MG/ML VIAL IV ONE (17:17)
[2019-09-09] MEDS ORDERED: DIHYDROERGOTAMINE MESYLATE 1 MG/ML VIAL SQ ONE (17:45)
[2019-09-09] MEDS: hydrOXYzine HCl 10 MG TAB PO SCH (21:31)
[2019-09-09] MEDS: GABAPENTIN 300 MG CAP PO SCH (21:31)
[2019-09-10 05:27] LABS: Basophils # (auto) 0.01 K/uL (0-0.2); Basophils % (auto) 0.2 %; Eosinophils # (auto) 0.13 K/uL (0-0.5); Eosinophils % (auto) 2.8 %; Hematocrit (blood only) 38.7 % (37-47); Hemoglobin 13.3 g/dL (12.0-16.0); Lymphocytes # (auto) 1.48 K/uL (1.2-3.4); Mean Corpuscular Hemoglobin 30.6 pg (25-34); Mean Corpuscular Hgb Conc 34.4 g/dL (32-36); Mean Corpuscular Volume 89.2 fL (80-100); Mean Platelet Volume 10.6 fL (7.4-10.4); Monocytes # (auto) 0.36 K/uL (0.11-0.59); Monocytes % (auto) 7.8 %; Neutrophils # (auto) 2.65 K/uL (1.4-6.5); Neutrophils % (auto) 57.2 %; Platelet Count 125 K/uL (130-400); RDW Standard Deviation 42.4 fL (36.4-46.3); Red Blood Count 4.34 M/uL (4.2-5.4); White Blood Count 4.63 K/uL (4.8-10.8)
[2019-09-10] MEDS: SODIUM CHLORIDE 0.9% 1000ML 1,000 ML IV SCH (05:35)
[2019-09-10 05:53] LABS: Albumin Level 3.5 gm/dl (3.4-5.0); Calcium 8.3 mg/dl (8.5-10.1); Creatinine Clr Calc Pharmacy 48.4 ml/min; Est GFR (African American) 58.1; Est GFR (Non-African American) 50.1; Potassium 3.6 mmol/L (3.5-5.1)
[2019-09-10 05:56] LABS: Albumin Globulin Ratio 1.2 (0.9-2); Bilirubin,Total 0.7 mg/dl (0.2-1); Globulin 2.9 gm/dl (2.5-4.0); Total Protein 6.4 gm/dl (6.4-8.2)
[2019-09-10] MEDS: SERTRALINE HCL 100 MG TABLET PO SCH (08:02)
[2019-09-10] MEDS: TOPIRAMATE 50 MG TAB PO SCH (08:02)
[2019-09-10] MEDS: PANTOprazole 40 MG TAB PO SCH ×2 (08:02→20:20)
[2019-09-10] MEDS: BuPROPion SR 150 MG TABCR PO SCH ×2 (08:03→20:20)
[2019-09-10] MEDS: HEPARIN SOD 5,000 UNIT/0.5 ML VIAL SQ SCH ×2 (08:04→20:20)
[2019-09-10] MEDS: POLYETHYLENE (MIRALAX) 17 GM PACK PO SCH (11:25)
--- NOTE | 2019-09-10 12:13 | Hospitalist Progress Note ---
Date of Service September 10, 2019 Assessment & Plan (1) Intractable left upper quadrant abdominal pain: EGD on 09/07 showed moderate erosive gastritis. Biopsies for celiac disease and H. pylori are pending. Considering as well IBS vs. abdominal migraine. - Pain management - Stool testing was ordered for infectious causes of diarrhea (C. diff, E. coli, etc.) & for H. pylori antigen, but she did not have any BM until starting her GI prep, so these weren't collected. - GI consulted -> Plan for colonoscopy tomorrow Thought: Abdominal pain seemed to get better with her headache after my migraine cocktail (dihydroergotamine 1mg SQ, metoclopramide 10 mg IV, and ketorolac 15 mg IV). This may point toward an abdominal migraine issue. - If no real notable findings on colonoscopy tomorrow, consider neurology consult? (2) Migraine: History of complex migraine that was similar to stroke. - Continue topiramate - Reported a headache starting on 09/07. Tried ketorolac and metoclopramide which helped for a short time. Then gave additional dose of each with dihydroergotamine which relieved headache. (3) Acute kidney injury: Prior Cr were ~1.1. Per patient, it was up to 1.3 in the spring when checked by PCP. - Cr was 1.9 on admission. Likely pre-renal from poor PO intake - Hydrate with IV fluids - Monitor -> Cr down to 1.2 today, even with 2 doses of ketorolac yesterday. (4) Hypertension: BP was low-normal on admission at 95/60. Now higher with BP up to 140/80 today. - Holding home carvedilol & chlorthalidone for mostly normal BP. - Restart as needed. 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 No present complaints that would indicate active issue. - Will monitor HR and BP as these are the major risk-factors for propagation. (6) Anxiety: Presently with anxious affect, though understandable given her current illness. - Continue home sertraline & bupropion (7) DVT prophylaxis: SCDs - Holding heparin for gastritis seen on EGD and for colonoscopy to [facility]. Admission and Anticipated Discharge Date Admission Date: September 08, 2019 Subjective Feeling some better. Headache is gone which is good. Abdominal pain has changed in character and is now more cramping and a bit lower. Still with some nausea. Reports no fevers/chills, chest pain, shortness of breath, or vomiting. Physical Exam Constitutional: WD/WN, vitals as above + acute distress Eyes: EOM intact bilaterally; no conjunctival abnormality ENMT: external ear and nose normal, oropharynx normal Neck: trachea midline, no thyromegaly normal visual inspection Respiratory: normal respiratory effort, lungs clear to auscultation no respiratory distress Cardiovascular: RRR, no murmur, no edema Gastrointestinal (Abdomen): Inspection/Auscultation: abdomen normal to inspection; abdomen not distended Percussion/Palpation: + abdomen tender (Epigastric and along left upper quadrant and flank.), + guarding and abdomen soft; abdomen not rigid Musculoskeletal: no cyanosis or clubbing, extremities motor strength 5/5 Skin: no rashes, warm and dry Neurologic: moves all extremities and awake Psychiatric: Orientation: alert, oriented to person and cooperative Results & Data Results & Data ([facility]) Vital Signs (Past 12 Hours) Vital Signs Temp Pulse Resp BP Pulse Ox 09/10/19 08:00 36.9 C 69 18 138/82 94 PG Care Time/CCT Total # of Minutes Spent Total Time Spent with Patient: Total time spent is greater than 50% in coordination of care (as documented) at patient's floor/unit and/or counseling patient: Coding Level of Care Code 75030 Subseq Hosp Care Lvl 3 Diagnoses Intractable left upper quadrant abdominal pain R10.12 Migraine G43.909 Migraine type: unspecified Status migrainosus presence: without status migrainosus Intractability: not intractable Acute kidney injury N17.9 Hypertension I10 Hypertension type: essential hypertension Vertebral artery dissection I77.74 Anxiety F41.9 DVT prophylaxis Z29.9 (1) Migraine Migraine type: unspecified Status migrainosus presence: without status migrainosus Intractability: not intractable Qualified Code(s): G43.909 - Migraine, unspecified, not intractable, without status migrainosus (2) Hypertension Hypertension type: essential hypertension Qualified Code(s): I10 - Essential (primary) hypertension
--- NOTE | 2019-09-10 16:11 | Gastroenterology Progress Note ---
Date of Service September 10, 2019 Assessment & Plan (1) Epigastric pain: Improved. Renal stone does not explain. Splenic u/s neg. Possible component intestinal migraines. Colonoscopy planned as further workup tomorrow. Proc and risks explained to patient which include but not limited to med r eaction, bleeding, perforation, aspiration, and missed lesion. Erosive gastritis--can explain some epigastric pain but does not seem adequate for overall pain. Path pending. Continue PPI. Hold ASA. diarrhea--actually has retained stool on CT so wonder about constipation with overflow diarrhea. Colonoscopy tomorrow weight loss--EGD not explanatory. . CT no evidence of malignancy. See what co lonoscopy shows. I am going off service tomorrow as of [address] Hernández is on schedule to be assuming GI care then. Admission and Anticipated Discharge Date Admission Date: September 08, 2019 Subjective cc f/u abd pain HPI Pt states abd pain overall improved and seemed to improve post meds for migraine headache. Moving her bowels with prep and states stools green with last bm. Review of Systems Respiratory: no dyspnea Cardiovascular: no chest pain Physical Exam Constitutional: WD/WN, vitals as above Respiratory: normal respiratory effort, lungs clear to auscultation Cardiovascular: RRR, no murmur, no edema Gastrointestinal (Abdomen): positve bowel sounds, soft, no guarding nor rebound. Psychiatric: A+Ox3, euthymic affect Results & Data ([facility]) Vital Signs (Past 12 Hours) Vital Signs Temp Pulse Pulse Resp BP BP Pulse Ox 09/10/19 15:49 36.8 C 76 18 128/81 95 09/10/19 08:00 36.9 C 69 18 138/82 94
[2019-09-10] MEDS: GABAPENTIN 300 MG CAP PO SCH (20:20)
[2019-09-10] MEDS: hydrOXYzine HCl 10 MG TAB PO SCH (20:20)
[2019-09-11] MEDS: SODIUM CHLORIDE 0.9% 1000ML 1,000 ML IV SCH ×2 (05:24→05:27)
[2019-09-11 06:15] LABS: Basophils # (auto) 0.02 K/uL (0-0.2); Basophils % (auto) 0.3 %; Eosinophils # (auto) 0.17 K/uL (0-0.5); Eosinophils % (auto) 2.8 %; Hemoglobin 13.5 g/dL (12.0-16.0); Immature Granulocytes # (auto) 0.01 K/uL (0.00-0.02); Immature Granulocytes % (auto) 0.2 %; Lymphocytes # (auto) 1.84 K/uL (1.2-3.4); Lymphocytes % (auto) 30.2 %; Mean Corpuscular Hemoglobin 30.8 pg (25-34); Mean Corpuscular Hgb Conc 34.6 g/dL (32-36); Mean Platelet Volume 9.6 fL (7.4-10.4); Monocytes # (auto) 0.43 K/uL (0.11-0.59); Monocytes % (auto) 7.1 %; Neutrophils # (auto) 3.62 K/uL (1.4-6.5); Neutrophils % (auto) 59.4 %; Platelet Count 154 K/uL (130-400); RDW Coefficient of Variation 12.9 % (11.5-14.5); RDW Standard Deviation 42.2 fL (36.4-46.3); Red Blood Count 4.38 M/uL (4.2-5.4); White Blood Count 6.09 K/uL (4.8-10.8)
[2019-09-11 06:54] LABS: Albumin Level 3.6 gm/dl (3.4-5.0); BUN Creatinine Ratio 7.9 (10-20); Creatinine Clr Calc Pharmacy 52.3 ml/min; Est GFR (African American) 63.8; Est GFR (Non-African American) 55.1; Potassium 3.2 mmol/L (3.5-5.1)
[2019-09-11 06:57] LABS: Albumin Globulin Ratio 1.2 (0.9-2); Bilirubin,Total 0.7 mg/dl (0.2-1); Total Protein 6.6 gm/dl (6.4-8.2)
[2019-09-11] MEDS: PANTOprazole 40 MG TAB PO SCH (08:16)
[2019-09-11] MEDS: BuPROPion SR 150 MG TABCR PO SCH (08:17)
[2019-09-11] MEDS: HEPARIN SOD 5,000 UNIT/0.5 ML VIAL SQ SCH (08:17)
[2019-09-11] MEDS: SERTRALINE HCL 100 MG TABLET PO SCH (08:17)
[2019-09-11] MEDS: TOPIRAMATE 50 MG TAB PO SCH (08:17)
[2019-09-11] MEDS: ACETAMINOPHEN 325 MG TAB PO PRN (08:22)
--- NOTE | 2019-09-11 11:55 | Anesthesiology Consultation ---
Date of Service September 11, 2019 Assessment & Plan (1) Encounter for pre-operative examination: Chart Review Chart Review: Acceptable Risk for Surgery and Patient NOT seen in Pre Admission Testing Consults Requested none History Surgery Operation Date: 09/08/19 15:30 Proposed Procedures p Esophagogastroduodenoscopy Dr Jose Luis Amaya Operation Date: 09/11/19 10:10 Proposed Procedures p Colonoscopy Dr Edgar Hernández Height/Weight Height: 5 ft 6 in Weight: 59.5 kg Allergies Allergy/AdvReac Type Severity Reaction Status Date / Time sumatriptan AdvReac Intermediate PALPITATION Verified 09/08/19 05:36 S Medications Home Medications Medication Instructions Recorded Confirmed Last Taken chlorthalidone 50 mg PO QAM 01/19/18 09/08/19 10/31/18 gabapentin 300 mg PO HS 01/19/18 09/08/19 06/21/18 albuterol sulfate 2 - 4 puff INHALATION Q4 PRN 04/13/18 09/08/19 Unknown bupropion HCl [Wellbutrin SR] 150 mg PO BID 04/13/18 09/08/19 10/31/18 aspirin [Ecotrin Low Strength] 81 mg PO QAM #30 tab 04/16/18 09/08/19 10/31/18 atorvastatin 40 mg PO QAM #30 tab 04/16/18 09/08/19 10/31/18 lorazepam 1 - 2 mg PO BID PRN 10/31/18 09/08/19 10/31/18 carvedilol 25 mg PO Q12H 09/08/19 09/08/19 Unknown hydroxyzine HCl 10 mg PO HS 09/08/19 09/08/19 Unknown sertraline 200 mg PO DAILY 09/08/19 09/08/19 Unknown topiramate 50 mg PO DAILY 09/08/19 09/08/19 Unknown Active Medications Generic Name Dose Route Start Last Admin Trade Name Freq PRN Reason Stop Dose Admin Acetaminophen 650 mg 09/08/19 09:48 09/11/19 08:22 Tylenol PO 10/08/19 09:47 650 mg Q4H PRN Administration pain/fever Bupropion HCl 150 mg 09/08/19 09:48 09/11/19 08:17 Wellbutrin-Sr PO 10/08/19 09:47 150 mg BID NATTY Administration Gabapentin 300 mg 09/08/19 21:00 09/10/19 20:20 Neurontin PO 10/08/19 20:59 300 mg HS NATTY Administration Heparin Sodium (Porcine) 5,000 units 09/08/19 09:48 09/11/19 08:17 Heparin Sodium (Porcine) SQ 10/08/19 09:47 5,000 units Q12 NATTY Administration Hydroxyzine HCl 10 mg 09/08/19 21:00 09/10/19 20:20 Vistaril PO 10/08/19 20:59 10 mg HS NATTY Administration Sodium Chloride 1,000 mls @ 80 mls/hr 09/08/19 09:48 09/11/19 05:27 Nss 1000ml IV 10/08/19 09:47 Not Given .[id number] NATTY Lorazepam 1 mg 09/08/19 09:48 09/09/19 21:55 Ativan PO 10/08/19 09:47 1 mg BID PRN Administration Anxiety Morphine Sulfate 2 mg 09/09/19 10:03 09/09/19 12:16 Morphine Sulfate IV 09/23/19 10:02 2 mg Q3H PRN Administration Pain Ondansetron HCl 4 mg 09/08/19 09:48 09/09/19 20:08 Zofran IV 10/08/19 09:47 4 mg Q4H PRN Administration Nausea Pantoprazole Sodium 40 mg 09/08/19 14:00 09/11/19 08:16 Protonix PO 10/08/19 13:59 40 mg BID NATTY Administration Sertraline HCl 200 mg 09/08/19 09:48 09/11/19 08:17 Zoloft PO 10/08/19 09:47 200 mg DAILY NATTY Administration Topiramate 50 mg 09/08/19 09:48 09/11/19 08:17 Topamax PO 10/08/19 09:47 50 mg DAILY NATTY Administration NPO Date Last Intake of Fluids: 09/07/19 Time Last Intake of Fluids: 20:00 Last Intake of Fluids Comment: water Date Last Intake of Solids: 09/07/19 Time Last Intake of Solids: 17:00 Past Medical History Medical History (Updated 09/11/19 @ 11:58 by Itz Cortez MD) Anxiety Chronic renal disease, stage III (Chronic) Epigastric pain Fibromyalgia Hyperlipidemia Hypertension Hypertension Hypokalemia Kidney stones Migraine Ovarian cyst Rheumatoid arthritis (Chronic) Vertebral artery dissection (Resolved) 2019 Past Family History Family History Mother , early 80s from bone cancer. COPD (chronic obstructive pulmonary disease) Father , age 66 of prostate cancer. Prostate cancer Hypertension Myocardial infarction Other Cancer Past Surgical History Surgical History H/O section H/O total knee replacement H/O: hysterectomy History of cholecystectomy History of tonsillectomy Social History Smoking Status: Never smoker Hx Alcohol Use: No Hx Substance Use: No substance use type: does not use Physical Exam Vital Signs Last Vital Signs Temp 36.8 C 09/11/19 05:41 Pulse 72 09/11/19 05:41 Resp 18 09/11/19 05:41 BP 129/80 09/11/19 05:41 Pulse Ox 97 09/11/19 05:41 Testing Laboratory Results 09/11/19 06:01 09/11/19 06:01 PT 11.3 Seconds (9.0-12.0) 09/08/19 10:15 INR 1.1 (0.9-1.1) 09/08/19 10:15 Urine Color Yellow 09/08/19 05:14 Urine Appearance Clear (Clear) 09/08/19 05:14 Urine pH 5.5 (4.5-7.5) 09/08/19 05:14 Ur Specific [place] 1.026 (1.000-1.030) 09/08/19 05:14 Urine Protein Negative (Negative) 09/08/19 05:14 Urine Glucose (UA) Negative (Negative) 09/08/19 05:14 Urine Ketones Negative (Negative) 09/08/19 05:14 Urine Nitrite Negative (Negative) 09/08/19 05:14 Ur Leukocyte Esterase Negative (Negative) 09/08/19 05:14 Urine WBC (Auto) 1-5 /hpf (0-5) 09/08/19 05:14 Urine RBC (Auto) 5-10 /hpf (0-4) H 09/08/19 05:14 U Hyaline Cast (Auto) 1-5 /lpf (0-5) 05/01/20 05:14 U Epithel Cells (Auto) 10-20 /lpf (0-5) H 09/08/19 05:14 Urine Bacteria (Auto) Negative (Negative) 09/08/19 05:14 Electrocardiogram Date: 09/08/19 Findings: + NSR @ (67) and + NSST changes Other Testing BDOMEN AND PELVIS CT WITHOUT CONTRAST CT DOSE: 281.47 mGy.cm HISTORY: Acute upper abdominal pain with nausea upper abdominal pain, nausea TECHNIQUE: Multiaxial CT images of the abdomen and pelvis were performed without contrast. A dose lowering technique was utilized adhering to the principles of ALARA. COMPARISON STUDY: CT abdomen and pelvis 08/23/2015 FINDINGS: Clear lung bases. No pneumatosis or pneumoperitoneum. Imaged inferior cardiac chambers appear unremarkable. Limited evaluation of the solid abdominal organ without the use of IV contrast. Within the limitations of the study the spleen, pancreas, adrenal glands and liver appear unremarkable. Cholecystectomy. Likely postsurgical extrahepatic biliary ductal dilation. 3 mm nonobstructing calculus of the interpolar left kidney. Unremarkable appearance of the right kidney. No ureteral calculi or obstructive uropathy. Multiple venous calcifications are noted adjacent to the left ureter and also within the pelvis. Partial distention of the urinary bladder. Hysterectomy. No adnexal mass lesions. No aortic aneurysm or adenopathy. No bowel obstruction or bowel wall thickening. Mild to moderate fecal retention. No ascites or mesenteric inflammation. The appendix is not diagnostically visualized. Small fat filled ventral abdominal wall hernia, diastases 1.8 cm. The bones appear intact. Degenerative changes of the spine, pelvis and hips. IMPRESSION: 1. No acute intra-abdominal or intrapelvic abnormality. 2. Nonobstructing left nephrolithiasis. 3. Mild to moderate fecal retention. 4. Hysterectomy and cholecystectomy. ACT 112: Negative or not required by law. The above report was generated using voice recognition software. It may contain grammatical, syntax or spelling errors. Electronically signed by: Baldemar Lai M.D. 09/08/2019 8:15 AM Dictated: 09/08/19 [id number]
[2019-09-11] MEDS ORDERED: PROPOFOL IV EMULSION 10 MG/ML 20 ML VIAL IV ONE (13:29)
[2019-09-11] MEDS ORDERED: LIDOCAINE HCL 2% 2 ML VIAL/AMP(20MG/ML) INFIL ONE (13:29)
--- NOTE | 2019-09-11 13:49 | History & Physical Report ---
Date of Service September 11, 2019 History of Present Illness Chief Complaint: diarrhea, wt loss Primary Care Provider: Padilla Velez MD For colonoscopy Allergies Allergy/AdvReac Type Severity Reaction Status Date / Time sumatriptan AdvReac Intermediate PALPITATION Verified 09/08/19 05:36 S Home Medications Home Medications Medication Instructions Recorded Confirmed Type chlorthalidone 50 mg PO QAM 01/19/18 09/08/19 History gabapentin 300 mg PO HS 01/19/18 09/08/19 History albuterol sulfate 2 - 4 puff INHALATION Q4 PRN 04/13/18 09/08/19 History bupropion HCl [Wellbutrin SR] 150 mg PO BID 04/13/18 09/08/19 History aspirin [Ecotrin Low Strength] 81 mg PO QAM #30 tab 04/16/18 09/08/19 Rx atorvastatin 40 mg PO QAM #30 tab 04/16/18 09/08/19 Rx lorazepam 1 - 2 mg PO BID PRN 10/31/18 09/08/19 History carvedilol 25 mg PO Q12H 09/08/19 09/08/19 History hydroxyzine HCl 10 mg PO HS 09/08/19 09/08/19 History sertraline 200 mg PO DAILY 09/08/19 09/08/19 History topiramate 50 mg PO DAILY 09/08/19 09/08/19 History Past Med/Surg History Medical History (Updated 09/11/19 @ 11:58 by Itz Cortez MD) Anxiety Chronic renal disease, stage III (Chronic) Epigastric pain Fibromyalgia Hyperlipidemia Hypertension Hypertension Hypokalemia Kidney stones Migraine Ovarian cyst Rheumatoid arthritis (Chronic) Vertebral artery dissection (Resolved) 2018 Surgical History H/O section H/O total knee replacement H/O: hysterectomy History of cholecystectomy History of tonsillectomy Family History Mother , early 80s from bone cancer. COPD (chronic obstructive pulmonary disease) Father , age 66 of prostate cancer. 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 [place] Other Information That Helps Us Care for You: No Feels Safe at Home: Yes Safety Concerns: Feels Safe At This Time Smoking Status: Never smoker Second Hand Exposure: No ; Hx Alcohol Use: No Hx Substance Use: No Physical Exam Constitutional: well developed Respiratory: normal respiratory effort Cardiovascular: Rate/Rhythm: regular rate and regular rhythm Gastrointestinal (Abdomen): Percussion/Palpation: abdomen soft Results & Data Vital Signs (Past 12 Hours) Vital Signs Temp Pulse Pulse Resp BP BP Pulse Ox 09/11/19 13:15 36.6 C 78 16 134/94 96 09/11/19 05:41 36.8 C 72 18 129/80 97 Code Status & VTE Plan VTE Prophylaxis Plan VTE Prophylaxis will be ordered: Yes
--- NOTE | 2019-09-11 14:19 | GI REPORT ---
Patient Name: Nisreen Nelson Procedure Date: 09/11/2019 1:28 PM Date of : 1960 Admit Type: Inpatient Age: 58 Gender: Female Attending MD: Dany Hernández MD Procedure: Colonoscopy Providers: Dany Hernández MD Referring MD: Milton Rogers M.d. Indications: Generalized abdominal pain, Clinically significant diarrhea of unexplained origin, Weight loss Medicines: Propofol total dose 400 mg IV, Lidocaine 40 mg IV Complications: No immediate complications. Estimated Blood Loss: Estimated blood loss was minimal. Procedure: Pre-Anesthesia Assessment: - Prior to the procedure, a History and Physical was performed, and patient medications, allergies and sensitivities were reviewed. The patient's tolerance of previous anesthesia was reviewed. - The risks and benefits of the procedure and the sedation options and risks were discussed with the patient. All questions were answered and informed consent was obtained. After I obtained informed consent, the scope was passed under direct vision. Throughout the procedure, the patient's blood pressure, pulse, and oxygen saturations were monitored continuously. The Scope was introduced through the anus and advanced to the cecum, identified by appendiceal orifice and ileocecal valve. The colonoscopy was performed without difficulty. The patient tolerated the procedure well. The quality of the bowel preparation was good. Findings: Normal mucosa was found in the entire colon. Biopsies for histology were taken with a cold forceps from the ascending colon, left colon and descending colon for evaluation of microscopic colitis. Estimated blood loss was minimal. Impression: - Normal mucosa in the entire examined colon. Biopsied. Recommendation: - Return patient to [facility] for ongoing care. - Await pathology results. Dany Hernández M.D. Dany Hernández MD 09/11/2019 2:18:36 PM This report has been signed electronically. Note Initiated On: 09/11/2019 1:28 PM Number of Addenda: 0 I attest to the content of the Intraoperative Record and orders documented therein, exceptions below {[id number]}
--- NOTE | 2019-09-11 14:29 | Anesthesiology Progress Note ---
Date of Service September 11, 2019 Anesthesia Post Procedure Vital Signs Vital Signs: Temp Pulse Pulse Resp BP BP Pulse Ox 09/11/19 14:15 75 19 107/73 100 09/11/19 13:15 97.9 F 78 16 134/94 96 09/11/19 05:41 98.2 F 72 18 129/80 97 09/10/19 15:49 98.2 F 76 18 128/81 95 Pain Intensity Left Flank: Pain Intensity: 5 Abdomen: Pain Intensity: 4 Head: Pain Intensity: 4 Transfer of Care Handoff Completed per policy Notes Mental Status: alert / awake / arousable and participated in evaluation Patient Amnestic to Procedure: Yes Nausea / Vomiting: adequately controlled Pain: adequately controlled Airway Patency, RR, SpO2: stable & adequate BP & HR: stable & adequate Hydration State: stable & adequate Anesthetic Complications: no major complications apparent and Pt Satisfied with anesthetic care
--- NOTE | 2019-09-11 14:37 | Progress Notes ---
DATE: 09/11/2019 The patient presented to the endoscopy unit today for colonoscopy. Her upper endoscopy showed some gastritis. Her biopsies are pending. Procedure was done for diarrhea, weight loss and abdominal pain. Procedure prep was good and the scope was advanced to the cecum. The mucosa was normal throughout. There was no diverticulosis, inflammation, polyps or cancers. Random colon biopsies were performed to rule out microscopic colitis. The patient tolerated the procedure well. She will return back to the hospital floor for continued care.
--- NOTE | 2019-09-17 23:30 | Discharge Summary ---
Date of Service September 11, 2019 Admission HPI Per Admitting Provider For colonoscopy Principal Diagnosis intractable left abd.pain. Discharge Exam Constitutional: WD/WN, vitals as above + acute distress Eyes: EOM intact bilaterally; no conjunctival abnormality ENMT: external ear and nose normal, oropharynx normal Neck: trachea midline, no thyromegaly normal visual inspection Respiratory: normal respiratory effort, lungs clear to auscultation no respiratory distress Cardiovascular: RRR, no murmur, no edema Gastrointestinal (Abdomen): Inspection/Auscultation: abdomen normal to inspection; abdomen not distended Percussion/Palpation: + abdomen nontender abdomen soft; abdomen not rigid Musculoskeletal: no cyanosis or clubbing, extremities motor strength 5/5 Skin: no rashes, warm and dry Neurologic: moves all extremities and awake Psychiatric: Orientation: alert, oriented to person and cooperative Discharge Data Allergies Allergy/AdvReac Type Severity Reaction Status Date / Time sumatriptan AdvReac Intermediate PALPITATION Verified 09/08/19 05:36 S Consultations 09/08/19 09:48 Consult Gastroenterology Routine Procedures Performed Operation Date: 09/08/19 15:30 Actual Procedures p EGD Biopsy Cytology - Jignesh Amaya Operation Date: 09/11/19 10:10 Actual Procedures p Colonoscopy Biopsy Cytology - Dany Hernández Ordered Studies 09/08/19 05:23 CT abd pelvis wo con Urgent 09/09/19 11:41 US abdomen limited Routine Hospital Course (1) Intractable left upper quadrant abdominal pain: EGD on 09/07 showed moderate erosive gastritis. Biopsies for celiac disease and H. pylori are pending. Considering as well IBS vs. abdominal migraine. - Pain management - Stool testing was ordered for infectious causes of diarrhea (C. diff, E. coli, etc.) & for H. pylori antigen, but she did not have any BM until starting her GI prep, so these weren't collected. - GI consulted ->colonoscopy completed. Await pathology. Ok to discharge patient, will followup with GI as an outpatient. (2) Migraine: History of complex migraine that was similar to stroke. - Continue topiramate - Reported a headache starting on 09/07. Tried ketorolac and metoclopramide which helped for a short time. Then gave additional dose of each with dihydroergotamine which relieved headache. (3) Acute kidney injury: Prior Cr were ~1.1. Per patient, it was up to 1.3 in the spring when checked by PCP. - Cr was 1.9 on admission. Likely pre-renal from poor PO intake - Hydrate with IV fluids - Cr down to 1.2, will monitor as outpatient by PCO. (4) Hypertension: BP was low-normal on admission at 95/60. Now higher with BP up to 140/80 today. - Holding home carvedilol & chlorthalidone for mostly normal BP. - Restart home meds at discharge (5) Vertebral artery dissection: Noted during prior admission in 10/2018. No present complaints that would indicate active issue. - Will monitor HR and BP as these are the major risk-factors for propagation. (6) Anxiety: Presently with anxious affect, though understandable given her current illness. - Continue home sertraline & bupropion (7) DVT prophylaxis: SCDs - Holding heparin for gastritis seen on EGD and for colonoscopy tomorrow. Total Time Total Time Spent Total Time Spent (In Minutes): 32 Total Time Includes: Examination of the Patient, Discharge Planning and Medication Reconciliation Discharge Plan Discharge Items Patient Disposition: Home - Self-Care Reason For Visit: ABDOMINAL PAIN, LUCITA Discharge Diagnosis: Abdominal pain. Activity: Resume your previous activity Non-emergency contact: Primary Care Provider Call non-emergency contact if: you have any medication questions Follow-up/Referrals: Padilla Velez MD [Primary Care Provider] - Diet: Regular Addtl Attending Provider Instructions: will ecommend followup with GI as an utpatient. Pending Studies at Discharge: No Stand-Alone Forms: [employer], Smoking Cessation Medications and DC Order Prescriptions: New pantoprazole 40 mg Tablet,Delayed Release (Dr/Ec) 40 mg PO BID Qty: 60 RF: 0 Continued sertraline 100 mg Tablet 200 mg PO DAILY RF: 0 topiramate 50 mg Capsule,Extended Release 24hr 50 mg PO DAILY RF: 0 carvedilol 25 mg Tablet 25 mg PO Q12H RF: 0 hydroxyzine HCl 10 mg Tablet 10 mg PO HS RF: 0 chlorthalidone 50 mg tablet 50 mg PO QAM RF: 0 gabapentin 300 mg capsule 300 mg PO HS RF: 0 bupropion HCl [Wellbutrin SR] 150 mg tablet sustained-release 12 hr 150 mg PO BID RF: 0 albuterol sulfate 90 mcg/actuation HFA aerosol inhaler 2 - 4 puff Inhalation Q4 PRN (Reason: Shortness Of Breath Or Wheezing) RF: 0 atorvastatin 40 mg Tablet 40 mg PO QAM Qty: 30 RF: 0 aspirin [Ecotrin Low Strength] 81 mg Tablet,Delayed Release (Dr/Ec) 81 mg PO QAM Qty: 30 RF: 0 lorazepam 2 mg tablet 1 - 2 mg PO BID PRN (Reason: Anxiety) RF: 0 Discharge Orders: Discharge Order (Routine); Ordered 09/11/19 Ordered By: Milton Rogers Admission Data Admit Date/Time: 09/10/19 19:22 Attending Provider: Milton Rogers Admit Provider: Esteban Veloz Primary Care Provider: Padilla Velez Other Providers: Jignesh Amyaa Other Interventions: Discharge Summary Assessment (RN) Last Done: 09/11/19 17:25 DC Date/Time DO NOT enter until pt leaves facility: 09/11/19 18:08 Coding Level of Care Code D/C Day Management >30 mins Diagnoses Intractable left upper quadrant abdominal pain R10.12 Migraine G43.909 Migraine type: unspecified Status migrainosus presence: without status migrainosus Intractability: not intractable Acute kidney injury N17.9 Hypertension I10 Hypertension type: essential hypertension Vertebral artery dissection I77.74 Anxiety F41.9 DVT prophylaxis Z29.9 Time Spent (min) 32
== END 2019-09-11 18:08 | disposition home or self-care (01) | DRG 391 ==
LOC: 2N 04:58 → ED 04:58 → 2N 09:33 → SUATTDRO 09-10 19:22

== ENCOUNTER 2024-07-31 15:08 | Inpatient (IN) ==
[2024-07-31] MEDS: ONDANSETRON INJ 2 MG/ML 2 ML VIAL IV STA (15:31)
[2024-07-31] MEDS: SODIUM CHLORIDE 0.9% 1,000 ML IV ONE (15:31)
[2024-07-31 15:48] LABS: Appearance Urine Clear (Clear); Bacteria Urine Automated None Seen (None Seen); Bilirubin Urine Negative (Negative); Blood Urine 1+ (Negative); Cast Urine Automated 0-2 /lpf (0-2); Color Urine Yellow; Epithelial Cell Urine Auto 0-2 /hpf (0-2); Glucose Urine UA Negative (Negative); Ketones Urine 1+ (Negative); Leukocyte Esterase Urine Negative (Negative); Nitrite Urine Negative (Negative); Protein Urine 3+ (Negative); Specific Gravity Urine 1.041 (1.000-1.030); Urobilinogen Urine Negative (Negative); WBC Urine Automated 0-5 /hpf (0-5)
[2024-07-31 15:52] LABS: Basophils # (auto) 0.04 K/uL (0.00-0.20); Basophils % (auto) 0.3 %; Hematocrit (blood only) 47.8 % (37.0-47.0); Hemoglobin 16.2 g/dl (12.0-16.0); Immature Granulocytes # (auto) 0.03 K/uL (0.01-0.20); Immature Granulocytes % (auto) 0.3 %; Lymphocytes # (auto) 0.99 K/uL (1.20-3.40); Lymphocytes % (auto) 8.4 %; Mean Corpuscular Hemoglobin 30.3 pg (25.0-34.0); Mean Corpuscular Hgb Conc 33.9 g/dL (32.0-36.0); Mean Corpuscular Volume 89.3 fL (80.0-100.0); Mean Platelet Volume 10.2 fL (9.4-12.4); Monocytes # (auto) 0.71 K/uL (0.11-0.59); Platelet Count 205 K/uL (130-400); RDW Coefficient of Variation 13.2 % (11.5-14.5); Red Blood Count 5.35 M/uL (4.20-5.40); White Blood Count 11.77 K/ul (4.8-10.8)
[2024-07-31 16:15] LABS: Albumin Level 5.3 gm/dl (3.4-5.0); BUN Creatinine Ratio 15.9 (10-20); Bilirubin,Total 0.9 mg/dl (0.2-1.0); Globulin 2.6 gm/dl (2.5-4.0); Potassium 3.8 mmol/L (3.5-5.1); Total Protein 7.9 gm/dl (6.0-8.3)
--- NOTE | 2024-07-31 16:25 | Emergency Department Note ---
History of Present Illness General Chief Complaint: Vomiting Stated Complaint: VOMITING, HEADACHE Time Seen by Provider: 07/31/24 16:13 History of Present Illness Provider complaint: + headache and + "migraine" Onset (ago): day(s) 2 Onset description: + sudden Severity: severe Maximum Pain Intensity: 9 Current Pain Intensity: 6 Quality: + throbbing, + dull and + constant Relieved By: + nothing Exacerbated By: + none Context: + occurred at rest and + long history of migraine; no recent head injury, no known CO exposure, no tick bite or no recent URI Associated symptoms: no fever, no nausea, no vomiting, no neck stiffness, no photophobia, no sensitivity to sound, no rash, no seizure, no eye pain, no eye redness, no syncope, no near syncope, no vision loss, no scotoma, no numbness, no confusion, no chest pain, no cough, no diaphoresis, no malaise, no shortness of breath, no lightheadedness or no rash Patient and reports that Demerol and Dilaudid are the only things that work for headache when she comes to the emergency department. Home Medications Medication Instructions Recorded Confirmed Type chlorthalidone 50 mg tablet 50 mg PO QAM 01/19/18 07/18/22 History gabapentin 300 mg capsule 300 mg PO HS 01/19/18 07/18/22 History albuterol sulfate 90 mcg/actuation 2 - 4 puff inhalation Q4 PRN 04/13/18 07/18/22 History aerosol inhaler Shortness Of Breath Or Wheezing bupropion HCl 150 mg tablet,12 hr 150 mg PO BID 04/13/18 07/18/22 History sustained-release (Wellbutrin SR) aspirin 81 mg tablet,delayed 81 mg PO QAM #30 tabs 04/16/18 07/18/22 Rx release (Ecotrin Low Strength) atorvastatin 40 mg tablet 40 mg PO QAM #30 tabs 04/16/18 07/18/22 Rx lorazepam 2 mg tablet 1 - 2 mg PO BID PRN Anxiety 10/31/18 07/18/22 History carvedilol 25 mg tablet 25 mg PO Q12H 09/08/19 07/18/22 History hydroxyzine HCl 10 mg tablet 10 mg PO HS 09/08/19 07/18/22 History sertraline 100 mg tablet 200 mg PO DAILY 09/08/19 07/18/22 History topiramate 50 mg capsule,extended 50 mg PO DAILY 09/08/19 07/18/22 History release 24 hr pantoprazole 40 mg tablet,delayed 40 mg PO BID #60 tabs 09/11/19 07/18/22 Rx release Allergies Allergy/AdvReac Type Severity Reaction Status Date / Time sumatriptan AdvReac Intermediate PALPITATION Verified 07/18/22 16:09 S Past Med/Surg History Problem List (Updated 07/31/24 @ 23:37 by Nell Melendez PA-C) Tachycardia Leukocytosis Intractable vomiting with nausea Nausea & vomiting (Acute) Hypokalemia Epigastric pain Encounter for pre-operative examination DVT prophylaxis Intractable left upper quadrant abdominal pain (Acute) Acute kidney injury (Acute) Hypertension Chronic cerebral ischemia Left-sided weakness Headache (Acute) Stroke-like symptoms (Acute) Acute anxiety (Acute) Anxiety Migraine (Acute) Chronic renal disease, stage III (Chronic) Rheumatoid arthritis (Chronic) Headache (Acute) Medical History Hyperlipidemia Hypertension Anxiety Fibromyalgia Migraine Ovarian cyst Kidney stones Surgical History History of cholecystectomy History of tonsillectomy H/O total knee replacement H/O: hysterectomy H/O section Family History Mother , early 80s from bone cancer. COPD (chronic obstructive pulmonary disease) Father , age 66 of prostate cancer. 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 [place] Other Information That Helps Us Care for You: No Feels Safe at Home: Yes Safety Concerns: Feels Safe At This Time Assistive Devices: Glasses Physical Exam Vital Signs Vital Signs - 24 hr 07/31/24 15:15 07/31/24 17:09 07/31/24 18:41 Temperature 37.4 C Temperature Source Temporal Artery Scan Pulse Rate 99 H Pulse Rate [Apical] 82 98 H Respiratory Rate 20 18 18 Respiratory Effort / Characteristics Non-Labored Spontaneous Non-Labored Spontaneous Respiratory Depth Normal Normal Respiratory Pattern Regular Blood Pressure 154/104 H Blood Pressure [Left Arm] 150/94 H 167/107 H Blood Pressure Mean 120 Blood Pressure Mean [Left Arm] 112 127 Pulse Oximetry 96 98 98 Oxygen Delivery Method Room Air Room Air Room Air Sepsis Recent Fever Within 48 Hours No Sepsis New/Unexplained Change in Mental Status No Sepsis Action Taken by Nursing No Action Required 07/31/24 20:00 Temperature Temperature Source Pulse Rate Pulse Rate [Apical] 89 Respiratory Rate 18 Respiratory Effort / Characteristics Non-Labored Spontaneous Respiratory Depth Normal Respiratory Pattern Regular Blood Pressure Blood Pressure [Left Arm] 166/108 H Blood Pressure Mean Blood Pressure Mean [Left Arm] 127 Pulse Oximetry 96 Oxygen Delivery Method Room Air Sepsis Recent Fever Within 48 Hours Sepsis New/Unexplained Change in Mental Status Sepsis Action Taken by Nursing Physical Exam HENT: Exam performed. -Head: Normocephalic and atraumatic. -Right Ear: External ear normal. No mastoid erythema -Left Ear: External ear normal. No mastoid erythema -Mouth/Throat: The oropharynx is clear and moist. No trismus in the jaw. No dental abscesses or uvula swelling. No oropharyngeal exudate or tonsillar abscesses. EYES: Conjunctivae and EOM are normal. Pupils are equal, round, and reactive to light. Right eye exhibits no discharge. Left eye exhibits no discharge. No scleral icterus. Funduscopic exam showed no AV nicking or papilledema bilaterally. NECK: Normal range of motion. Neck supple. No JVD present. No spinous process tenderness present. No rigidity. No tracheal deviation and normal range of motion present. No Brudzinski's sign and no Kernig's sign noted. CV: Normal rate, regular rhythm, normal heart sounds and intact distal pulses. There is no peripheral edema. Palpable radial pulses bue. PULM/CHEST: Effort normal and breath sounds normal. No respiratory distress. No stridor. no wheezes. no rales. MUSC/SKEL: Normal range of motion. There is no peripheral edema, tenderness or deformity. NEURO: alert and oriented to person, place, and time. normal strength. No cranial nerve deficit or sensory deficit. Coordination and gait normal. GCS eye subscore is 4. GCS verbal subscore is 5. GCS motor subscore is 6. Cerebellar tests wnl. No clonus. SKIN: Skin is warm and dry. not diaphoretic. PSYCH:normal mood and affect. Behavior is normal. Judgment and thought content normal. Course Course 161: The patient was evaluated in room B8. A complete history and physical exam was performed Cardiac monitoring: An order was placed for continuous cardiac monitoring. The monitor shows a rate of 90 with sinus rhythm interpreted by me External medical records reviewed.Patient was seen in the emergency department yesterday. Yesterday the patient had normal blood work normal head CTA head CT and neck MRA. Patient was discharged without any medications and return to the emergency department today. 1805: Nursing states that the patient is asking for Dilaudid for pain. 1830: Vital signs stable. Labs are unremarkable. On reassessment patient is sleeping in no acute distress. Patient states her headache and nausea are better. I discussed the plan with to discharge patient home and have her follow-up with headache specialist and neurology. Patient is agreement with the plan. 185: Called to bedside by nursing who stated that the patient's daughter is a nurse who used to work here and states that the patient needs to be admitted for IV fluids and a neurology consult. The daughter states that the patient does not want narcotics and is "not drug-seeking" but states that she does not want the patient to be discharged. I explained to her that the patient had asked for Dilaudid and stated that's why it would be administered. Daughter states that the patient needs to be admitted for IV fluids. I explained to her that the patient could be evaluated for admission by the hospitalist team. Administered Medications Hydromorphone HCl (Hydromorphone Inj 0.5 Mg/0.5 Ml Syr) 0.5 mg IV Q6H PRN PRN Reason: Severe Pain (Scale 7, 8, 9,10) Stop: 08/14/24 21:24 Last Admin: 07/31/24 21:49 Dose: 0.5 mg Documented By: KAVIN Sodium Chloride (Nss) 1,000 mls @ 80 mls/hr IV .[id number] NATTY Stop: 08/01/24 18:59 Last Admin: 07/31/24 20:38 Dose: 80 mls/hr Documented By: KEVIN Ondansetron HCl (Ondansetron Inj 2 Mg/Ml 2 Ml Vial) 4 mg IV Q6H PRN PRN Reason: Nausea And Vomiting Stop: 08/30/24 21:24 Last Admin: 07/31/24 21:49 Dose: 4 mg Documented By: KAVIN Discontinued Medications Diphenhydramine HCl (Diphenhydramine 50 Mg/Ml Vial) 25 mg IV NOW STA Stop: 07/31/24 16:14 Last Admin: 07/31/24 16:26 Dose: 25 mg Documented By: KEVIN Hydromorphone HCl (Hydromorphone Inj 0.5 Mg/0.5 Ml Syr) 0.5 mg IV NOW STA Stop: 07/31/24 18:07 Last Admin: 07/31/24 18:09 Dose: 0.5 mg Documented By: KEVIN Sodium Chloride (Nss) 1,000 mls @ 999 mls/hr IV .Q1H1M ONE Stop: 07/31/24 16:18 Last Infusion: 07/31/24 16:32 Dose: Infused Documented By: Admin: 07/31/24 15:31 Dose: 999 mls/hr Documented By: EDU Dexamethasone 6 mg/ Syringe 1.5 mls @ 1 mls/min IV ONE ONE Stop: 07/31/24 20:07 Last Admin: 07/31/24 20:45 Dose: 1 mls/min Documented By: KEVIN Pantoprazole Sodium (Protonix) 40 mg in 10 mls @ 5 mls/min IV NOW ONE Stop: 07/31/24 20:07 Last Admin: 07/31/24 20:41 Dose: 5 mls/min Documented By: KEVIN Potassium Chloride (K Pernell / Wtr) 10 meq in 100 mls @ 100 mls/hr IV Q1H NATTY Stop: 07/31/24 22:14 Last Infusion: 07/31/24 23:22 Dose: Infused Documented By: Admin: 07/31/24 22:03 Dose: 100 mls/hr Documented By: Infusion: 07/31/24 21:47 Dose: Infused Documented By: Admin: 07/31/24 20:47 Dose: 100 mls/hr Documented By: KEVIN Ketorolac Tromethamine (Ketorolac Tromethamine 15 Mg/Ml Vial) 15 mg IV NOW STA Stop: 07/31/24 16:14 Last Admin: 07/31/24 16:32 Dose: 15 mg Documented By: KEVIN Metoclopramide HCl (Metoclopramide Hcl Inj 5 Mg/Ml 2 Ml Vial) 5 mg IV ONE ONE Stop: 07/31/24 16:14 Last Admin: 07/31/24 16:29 Dose: 5 mg Documented By: KEVIN Ondansetron HCl (Ondansetron Inj 2 Mg/Ml 2 Ml Vial) 4 mg IV NOW STA Stop: 07/31/24 15:19 Last Admin: 07/31/24 15:31 Dose: 4 mg Documented By: EDU Medical Decision Making Medical Records Attestation: I reviewed the patient's medical records. External medical records reviewed.Patient was seen in the emergency department yesterday. Yesterday the patient had normal blood work normal head CTA head CT and neck MRA. Patient was discharged without any medications and return to the emergency department today. Laboratory Data Attestation: I reviewed the patient's lab results. 07/31/24 15:30 07/31/24 15:30 Lab Results 07/31/24 07/31/24 07/31/24 Range/Units 15:30 15:35 15:40 WBC 11.77 H (4.8-10.8) K/ul RBC 5.35 (4.20-5.40) M/uL Hgb 16.2 H (12.0-16.0) g/dl Hct 47.8 H (37.0-47.0) % MCV 89.3 (80.0-100.0) fL MCH 30.3 (25.0-34.0) pg MCHC 33.9 (32.0-36.0) g/dL RDW Std Deviation 43.0 (36.4-46.3) fL RDW Coeff of Kylie 13.2 (11.5-14.5) % Plt Count 205 (130-400) K/uL MPV 10.2 (9.4-12.4) fL Immature Gran % (Auto) 0.3 % Neut % (Auto) 85.0 % Lymph % (Auto) 8.4 % [place] % (Auto) 6.0 % Eos % (Auto) 0.0 % Baso % (Auto) 0.3 % Neut # (Auto) 10.00 H (1.40-6.50) K/uL Lymph # (Auto) 0.99 L (1.20-3.40) K/uL [place] # (Auto) 0.71 H (0.11-0.59) K/uL Eos # (Auto) 0.00 (0.00-0.50) K/uL Baso # (Auto) 0.04 (0.00-0.20) K/uL Immature Gran # (Auto) 0.03 (0.01-0.20) K/uL Sodium 143 (136-145) mmol/L Potassium 3.8 (3.5-5.1) mmol/L Chloride 108 H (98-107) mmol/L Carbon Dioxide 23 (21-32) mmol/L Anion Gap 12 H (3-11) BUN 17 (6-23) mg/dl Creatinine 1.07 (0.6-1.2) mg/dl Est Cr Clr Drug Dosing 51.0 ml/min eGFR 58.73 BUN/Creatinine Ratio 15.9 (10-20) Glucose 102 H (70-99(Fasting)) mg/dl Calcium 10.0 (8.6-10.3) mg/dl Magnesium 2.0 (1.7-2.4) mg/dl Total Bilirubin 0.9 (0.2-1.0) mg/dl AST 27 (13-39) U/L ALT 7 (7-52) U/L Alkaline Phosphatase 71 (34-104) U/L Total Protein 7.9 (6.0-8.3) gm/dl Albumin 5.3 H (3.4-5.0) gm/dl Globulin 2.6 (2.5-4.0) gm/dl Albumin/Globulin Ratio 2.0 (0.9-2) Lipase 28 (11-82) U/L Urine Color Yellow Urine Appearance Clear (Clear) Urine pH 6.0 (4.5-7.5) Ur Specific [place] 1.041 H (1.000-1.030) Urine Protein 3+ H (Negative) Urine Glucose (UA) Negative (Negative) Urine Ketones 1+ H (Negative) Urine Blood 1+ H (Negative) Urine Nitrite Negative (Negative) Urine Bilirubin Negative (Negative) Urine Urobilinogen Negative (Negative) Ur Leukocyte Esterase Negative (Negative) Urine WBC (Auto) 0-5 (0-5) /hpf Urine RBC (Auto) 3-5 H (0-2) /hpf U Hyaline Cast (Auto) 0-2 (0-2) /lpf U Epithel Cells (Auto) 0-2 (0-2) /hpf Urine Bacteria (Auto) None Seen (None Seen) Urine Opiates Screen Pos H (Neg) Ur Methadone, Qual Neg (Neg) Urine Fentanyl Screen Neg (Neg) Urine Barbiturates Neg (Neg) Ur Phencyclidine (PCP) Neg (Neg) U Amphetamin/Meth Scrn Neg (Neg) MDMA (Ecstasy) Screen Pos H (Neg) U Benzodiazepines Scrn Neg (Neg) Ur Cocaine Metabolite Neg (Neg) U Marijuana (THC) Screen Neg (Neg) MDM Narrative 1613: The patient was evaluated in room B8. A complete history and physical exam was performed Cardiac monitoring: An order was placed for continuous cardiac monitoring. The monitor shows a rate of 90 with sinus rhythm interpreted by me External medical records reviewed.Patient was seen in the emergency department yesterday. Yesterday the patient had normal blood work normal head CTA head CT and neck MRA. Patient was discharged without any medications and return to the emergency department today. 1805: Nursing states that the patient is asking for Dilaudid for pain. 1830: Vital signs stable. Labs are unremarkable. On reassessment patient is sleeping in no acute distress. Patient states her headache and nausea are better. I discussed the plan with to discharge patient home and have her follow-up with headache specialist and neurology. Patient is agreement with the plan. 1851: Called to bedside by nursing who stated that the patient's daughter is a nurse who used to work here and states that the patient needs to be admitted for IV fluids and a neurology consult. The daughter states that the patient does not want narcotics and is "not drug-seeking" but states that she does not want the patient to be discharged. I explained to her that the patient had asked for Dilaudid and stated that's why it would be administered. Daughter states that the patient needs to be admitted for IV fluids. I explained to her that the patient could be evaluated for admission by the hospitalist team. Impression & Plan Migraine Discharge Plan Visit Data Chief Complaint: Vomiting Stated Complaint: VOMITING, HEADACHE ED Provider: German Potts Discharge Problem: Migraine Patient Disposition: Admitted As Inpatient Discharge Instructions Interventions: ED Discharge Assessment Last Done: 07/31/24 21:01 Discharge Problem: Migraine Qualifiers: Migraine type: unspecified Status migrainosus presence: without status migrainosus Intractability: not intractable Qualified Code(s): G43.909 - Migraine, unspecified, not intractable, without status migrainosus
[2024-07-31] MEDS: diphenhydrAMINE 50 MG/ML VIAL IV STA (16:26)
[2024-07-31] MEDS: METOCLOPRAMIDE HCL INJ 5 MG/ML 2 ML VIAL IV ONE (16:29)
[2024-07-31] MEDS: KETOROLAC TROMETHAMINE 15 MG/ML VIAL IV STA (16:32)
[2024-07-31] MEDS: HYDROmorphone INJ 0.5 MG/0.5 ML SYR IV STA (18:09)
--- NOTE | 2024-07-31 19:41 | History & Physical Report ---
Date of Service July 31, 2024 Assessment & Plan (1) Intractable vomiting with nausea: (2) Migraine: (3) Hypokalemia: (4) Leukocytosis: (5) Tachycardia: (6) Vertebral artery dissection: Plan Patient is a 63-year-old female with a past medical history of hypertension, migraines, arthritis, CKD stage III. she presented to the ED 07/30 for migraine and nausea and was sent home after feeling better with fluids, Reglan, Benadryl, Tylenol, Dilaudid, and patient reports steroids. She returned to the ED several hours later because her vomiting returned and she has been unable to tolerate any p.o. intake for 2 days. She is being admitted for intractable vomiting secondary to migraine. #intractable vomiting/migraine head CT and head CTA negative neck CTA showed chronic focal dissection within the proximal is unchanged from 2019 anion gap 12 K+ 3.8 - 20 meq IV Krider ordered, goal 4.0 other electrolytes stable Dexamethasone 6 Mg IV every 24 hours Pantoprazole IV twice daily In 1L NSS bolus in ED, continue NSS 80 mL/hour overnight Continue Zofran and Reglan IV as needed for nausea Tylenol prn, Toradol prn, and Dilaudid (for MADRID not relieved by #1 and 2) - Narcan prn hold home PO medications until able to tolerate PO intake - consider holding chlorthalidone several days until rehydrated aspiration precautions UDS ordered, patient denies any illicit drug use - positive for MDMA - on bupropion - positive for opioids- Dilaudid in ED defer abdominal imaging as denies any abdominal pain and suspect vomiting is secondary to migraine could consider high flow oxygen if above fails to relieve migraine continue topiramate when able to tolerate p.o. intake consider referral to outpatient neurologist on discharges for migraines - differential includes but not limited to vertebral artery vasospasm, could consider verapamil long-term setting #leukocytosis WBC 11.77 with neutrophil predominance 2/2 stress above versus recent steroid use Trend CBC #tachycardia HR 98 on admission Suspect 2/2 dehydration/hyperlipidemia EKG ordered IV hydration as above #chronic vertebral artery dissection neck CTA showed redemonstrated chronic focal dissection within the proximal right vertebral artery, unchanged from 2019 heterogeneous appearance of proximal right common carotid artery likely artifact Neck MRA showed no significant abnormalities, no dissections Questionable dissection as MRA showed no abnormality Referral to neurologist for above on discharge Chronic stable diagnoses: hypertensionholding chlorthalidone with dehydration above, holding carvedilol with nausea, can resume when able to tolerate p.o. intake CKD stage IIIrenal function stable on admission, trend BMP anxietyWellbutrin, sertraline, hydroxyzine at bedtime VTE ppx: SCDs, low risk and obs status Diet: clears, advance as tolerated Dispo:med surg with continuous pulse ox with IV opioids anticipate discharge home in a.m. 08/01 if able to tolerate p.o. intake Admission and Anticipated Discharge Date Admission Date: 07/31/24 History of Present Illness Primary Care Provider: Victor Hugo Velez MD Patient is a 63-year-old female with a past medical history of hypertension, migraines, arthritis, CKD stage III. she presented to the ED 07/30 for migraine and nausea and was sent home after feeling better with fluids, Reglan, Benadryl, Tylenol, Dilaudid, and patient reports steroids. She returned to the ED several hours later because her vomiting returned and she has been unable to tolerate any p.o. intake for 2 days. She is being admitted for intractable vomiting secondary to migraine. Seen bedside with her present. She stated her migraines typically start with a migraine then vomiting however this pain started with vomiting for so she thought she was getting the flu. She denies any other flulike symptoms. Her migraine is diffusely over her head, not in a specific location, this is normal for her. She denies any right or left-sided deficits, no slurred speech. Her vomit is yellow-colored, denies hematemesis. She does not currently follow with a neurologist, however requested to arrange care with 1 with her PCP today. Her PCP told her to come into the ED today because her vomiting returned. She stated that her migraines are very sporadic will come sometimes she does 6 months without 1 and then will have a fever couple months in a row. She has maybe been in the ED here 1 times since 2019 due to migraine. She frequently can treat them with Excedrin Migraine at home. She does endorse dizziness however thinks secondary to dehydration. She denies any lightheadedness, chest pain, shortness of breath, abdominal pain, diarrhea. She denies any nicotine, alcohol, or illicit drug use. She has not taken her home medications in several days due to being unable to tolerate p.o. intake, she stated her blood pressure is higher than baseline. She wishes to be full code. Patient states that medication received in the ED took her migraine from 02/16 to 11/16. Her nausea is slowly returning. She does feel like she can tolerate clear fluids. Allergies Allergy/AdvReac Type Severity Reaction Status Date / Time sumatriptan AdvReac Intermediate PALPITATION Verified 07/18/22 16:09 S Home Medications Medication Instructions Recorded Confirmed Type chlorthalidone 50 mg tablet 50 mg PO QAM 01/19/18 07/18/22 History gabapentin 300 mg capsule 300 mg PO HS 01/19/18 07/18/22 History albuterol sulfate 90 mcg/actuation 2 - 4 puff inhalation Q4 PRN 04/13/18 07/18/22 History aerosol inhaler Shortness Of Breath Or Wheezing bupropion HCl 150 mg tablet,12 hr 150 mg PO BID 04/13/18 07/18/22 History sustained-release (Wellbutrin SR) aspirin 81 mg tablet,delayed 81 mg PO QAM #30 tabs 04/16/18 07/18/22 Rx release (Ecotrin Low Strength) atorvastatin 40 mg tablet 40 mg PO QAM #30 tabs 04/16/18 07/18/22 Rx lorazepam 2 mg tablet 1 - 2 mg PO BID PRN Anxiety 10/31/18 07/18/22 History carvedilol 25 mg tablet 25 mg PO Q12H 09/08/19 07/18/22 History hydroxyzine HCl 10 mg tablet 10 mg PO HS 09/08/19 07/18/22 History sertraline 100 mg tablet 200 mg PO DAILY 09/08/19 07/18/22 History topiramate 50 mg capsule,extended 50 mg PO DAILY 09/08/19 07/18/22 History release 24 hr pantoprazole 40 mg tablet,delayed 40 mg PO BID #60 tabs 09/11/19 07/18/22 Rx release Past Med/Surg History Problem List (Updated 07/31/24 @ 23:37 by Nell Melendez PA-C) Tachycardia Leukocytosis Intractable vomiting with nausea Nausea & vomiting (Acute) Hypokalemia Epigastric pain Encounter for pre-operative examination DVT prophylaxis Intractable left upper quadrant abdominal pain (Acute) Acute kidney injury (Acute) Hypertension Chronic cerebral ischemia Left-sided weakness Headache (Acute) Stroke-like symptoms (Acute) Acute anxiety (Acute) Anxiety Migraine (Acute) Chronic renal disease, stage III (Chronic) Rheumatoid arthritis (Chronic) Headache (Acute) Medical History Hyperlipidemia Hypertension Anxiety Fibromyalgia Migraine Ovarian cyst Kidney stones Surgical History History of cholecystectomy History of tonsillectomy H/O total knee replacement H/O: hysterectomy H/O section Family History Mother , early 80s from bone cancer. COPD (chronic obstructive pulmonary disease) Father , age 66 of prostate cancer. 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 Non-toxic appearing. HEENT- EOMI, mucous membranes dry. Hearing grossly intact. Heart-normal S1 and S2. No murmurs, rubs or gallops. Lungs-clear bilaterally, no respiratory distress, no accessory muscle use. Abdomen-normal bowel sounds and soft. No ascites noted. Non-tender. Extremities- no clubbing, cyanosis, or edema. Rheumatologic-normal range of motion. Psychiatric-normal affect. Results & Data Results & Data Vital Signs (Past 12 Hours) Vital Signs Temp Pulse Pulse Resp BP BP Pulse Ox 07/31/24 18:41 98 H 18 167/107 H 98 07/31/24 17:09 82 18 150/94 H 98 07/31/24 15:15 37.4 C 99 H 20 154/104 H 96 O2 Del Method 07/31/24 18:41 Room Air 07/31/24 17:09 Room Air 07/31/24 15:15 Room Air Laboratory Results reviewed CBC, CMP, magnesium, lipase, UA, UDS Diagnostic Findings reviewed Head CT, CTA, neck CTA, neck MRA Code Status & VTE Plan Code Status full VTE Prophylaxis Plan VTE Prophylaxis will be ordered: Yes Supervising Physician Co-Signing Physician Notes Attending addendum: I have physically seen this patient, have supervised the TORRIE's activities, and agree with the H&P unless as otherwise noted. Assessment and Plan: The patient is a 63-year-old female with past medical history including hypertension, migraines, rheumatoid arthritis, CKD stage III, hyperlipidemia, depression, anxiety, GERD, chronic cerebral ischemia, and chronic vertebral artery dissection. She presented to the emergency department initially on 07/30 for migraines and nausea, and was sent home after feeling better with treatment including IV fluids, Reglan, Benadryl, Tylenol, Dilaudid and steroids. She reports that her symptoms recurred after arriving home, and return to the emergency department unable to tolerate any oral intake for the past 2 days. Patient is referred to the [facility] for evaluation and treatment for intractable vomiting secondary to migraine headache. #Intractable vomiting secondary to migraine- CT scan of head noncontrast negative CTA head without contrast negative CTA neck redemonstrates chronic focal dissection within the proximal right vertebral artery, unchanged from 10/27/2018. Recommendation with faster ultrasound and/or MRA of neck was recommended. MRI of neck was normal, including normal caliber of both vertebral arteries. From the ED the patient received the following: Zofran 4 mg IV, normal saline bolus 1 L IV, Benadryl 25 mg IV, Toradol 15 mg IV, metoclopramide 5 mg IV, Dilaudid 0.5 mg IV. Admit on the following: Dexamethasone 10 mg IV Pantoprazole 40 mg IV twice daily Normal saline 80 mL/h x 1 L Zofran 4 mg IV every 4 hours as needed Metoclopramide 5 mg IV every 6 hours as needed Acetaminophen 1 g IV every 8 hours as needed Toradol 15 mg IV every 6 hours as needed for breakthrough headache Urine drug screen: Positive for MDMA, on bupropion, positive for opioids, received Dilaudid in the ED Unable to give any of her usual oral medications due to decreased ability to tolerate p.o. Chronic stable medical conditions: CKD stage III- Creatinine 1.07 on admission Anxiety-Wellbutrin, sertraline and hydroxyzine unable to take p.o. Remaining orders and notations as noted PG Care Time/CCT Total # of Minutes Spent Total Time Spent with Patient: Total time spent is greater than 50% in coordination of care (as documented) at patient's floor/unit and/or counseling patient: Coding Level of Care Code 89335 INT INP/OBS CARE 375MIN Diagnoses Intractable vomiting with nausea R11.2 Migraine without status migrainosus, not intractable, unspecified migraine type G43.909 Intractability: not intractable Migraine type: unspecified Status migrainosus presence: without status migrainosus Hypokalemia E87.6 Leukocytosis D72.829 Tachycardia R00.0 Vertebral artery dissection I77.74 (2) Migraine Intractability: not intractable Migraine type: unspecified Status migrainosus presence: without status migrainosus Qualified Code(s): G43.909 - Migraine, unspecified, not intractable, without status migrainosus
[2024-07-31] MEDS: SODIUM CHLORIDE 0.9% 1,000 ML IV SCH (20:38)
[2024-07-31 20:40] LABS: Amphetamines+Metham, Urine Neg (Neg); Barbiturates, Urine Neg (Neg); Benzodiazepine, Urine Neg (Neg); Cocaine, Urine Neg (Neg); Fentanyl, Urine Neg (Neg); MDMA (Ecstacy), Urine Pos (Neg); Marijuana, Urine Neg (Neg); Methadone, Urine Neg (Neg); Opiate, Urine Pos (Neg); Phencyclidine, Urine Neg (Neg)
[2024-07-31] MEDS: PANTOprazole 40 MG/10 ML SYR IV ONE (20:41)
[2024-07-31] MEDS: dexAMETHasone 6 MG in SYRINGE 0 ML IV ONE (20:45)
[2024-07-31] MEDS: POTASSIUM CHLORIDE / WTR 10 MEQ/100 ML PLCT IV SCH (20:47)
[2024-07-31] MEDS ORDERED: ACETAMINOPHEN 1,000 MG/100 ML VIAL IV PRN (21:25)
[2024-07-31] MEDS ORDERED: NALOXONE HCL 0.4 MG/1 ML VIAL/CARP IV PRN (21:25)
[2024-07-31] MEDS ORDERED: HYDROmorphone INJ 0.5 MG/0.5 ML SYR IV PRN (21:44)
[2024-07-31] MEDS: ONDANSETRON INJ 2 MG/ML 2 ML VIAL IV PRN (21:49)
[2024-07-31] MEDS: HYDROmorphone INJ 0.5 MG/0.5 ML SYR IV PRN (21:49)
[2024-08-01 06:33] LABS: BUN Creatinine Ratio 22.3 (10-20); Bilirubin,Total 0.7 mg/dl (0.2-1.0); Calcium 8.5 mg/dl (8.6-10.3); Creatinine Clr Calc Pharmacy 58.1 ml/min; Magnesium 1.9 mg/dl (1.7-2.4)
[2024-08-01 07:02] LABS: Basophils # (auto) 0.03 K/uL (0.00-0.20); Basophils % (auto) 0.3 %; Hematocrit (blood only) 37.6 % (37.0-47.0); Hemoglobin 12.8 g/dl (12.0-16.0); Immature Granulocytes # (auto) 0.03 K/uL (0.01-0.20); Immature Granulocytes % (auto) 0.3 %; Lymphocytes # (auto) 1.04 K/uL (1.20-3.40); Lymphocytes % (auto) 11.9 %; Mean Corpuscular Hemoglobin 30.8 pg (25.0-34.0); Mean Corpuscular Volume 90.4 fL (80.0-100.0); Mean Platelet Volume 10.5 fL (9.4-12.4); Monocytes % (auto) 5.7 %; Neutrophils # (auto) 7.17 K/uL (1.40-6.50); Neutrophils % (auto) 81.8 %; Platelet Count 174 K/uL (130-400); RDW Standard Deviation 43.3 fL (36.4-46.3); Red Blood Count 4.16 M/uL (4.20-5.40); White Blood Count 8.77 K/ul (4.8-10.8)
[2024-08-01] MEDS: dexAMETHasone 6 MG in SYRINGE 0 ML IV SCH (08:10)
[2024-08-01] MEDS: PANTOprazole 40 MG/10 ML SYR IV SCH (08:10)
[2024-08-01] MEDS: ACETAMINOPHEN 500 MG TAB PO PRN (08:11)
--- NOTE | 2024-08-01 14:16 | Electrocardiogram Report ---
Test Reason : Blood Pressure : */* mmHG Vent. Rate : 76 BPM Atrial Rate : 76 BPM P-R Int : 164 ms QRS Dur : 82 ms QT Int : 434 ms P-R-T Axes : 71 65 78 degrees QTcB Int : 488 ms Normal sinus rhythm Normal ECG When compared with ECG of 30-Jul-2024 20:23, (unconfirmed) Criteria for Septal infarct are no longer Present Confirmed by Judah Strickland ([id number]) on 08/01/2024 2:16:17 PM Referred By: REFERRED SELF Confirmed By: Judah Strickland
[2024-08-01] MEDS: carvediloL 25 MG TAB PO SCH (16:16)
[2024-08-01] MEDS: KETOROLAC TROMETHAMINE 15 MG/ML VIAL IV PRN (17:17)
--- NOTE | 2024-08-01 17:26 | Hospitalist Progress Note ---
Date of Service August 01, 2024 Assessment & Plan (1) Intractable vomiting with nausea: (2) Migraine: (3) Hypokalemia: (4) Leukocytosis: (5) Tachycardia: (6) Vertebral artery dissection: Plan Patient is a 63-year-old female with a past medical history of hypertension, migraines, arthritis, CKD stage III. she presented to the ED 07/30 for migraine and nausea and was sent home after feeling better with fluids, Reglan, Benadryl, Tylenol, Dilaudid, and patient reports steroids. She returned to the ED several hours later because her vomiting returned and she has been unable to tolerate any p.o. intake for 2 days. She is being admitted for intractable vomiting secondary to migraine. #intractable vomiting/migraine head CT and head CTA negative. neck CTA showed chronic focal dissection within the proximal is unchanged from 2019 Continue IV dexamethasone daily. continue IVFs Pain control: tylenol prn, Toradol prn, and Dilaudid UDS ordered, patient denies any illicit drug use - positive for MDMA - on bupropion - positive for opioids- Dilaudid in ED Topamax resumed. Outpatient referral to headache clinic /neurologist on discharges for migraines - differential includes but not limited to vertebral artery vasospasm, could consider verapamil long-term setting #chronic vertebral artery dissection neck CTA showed remonstrated chronic focal dissection within the proximal right vertebral artery, unchanged from 2019 heterogeneous appearance of proximal right common carotid artery likely artifact Neck MRA showed no significant abnormalities, no dissections Questionable dissection as MRA showed no abnormality Referral to neurologist for above on discharge #HTN - carvedilol resumed, holding chlorthalidone with dehydration #anxietyWellbutrin, sertraline, hydroxyzine at bedtime Dispo: continued inpatient stay, treating migraine DVT ppx: low risk Admission and Anticipated Discharge Date Admission Date: July 31, 2024 Subjective patient seen this morning - continues to have migraine with photophobia. some nausea, was able to tolerate some PO intake Review of Systems Review of Systems: All systems reviewed & are unremarkable except as noted in Subjective Physical Exam Physical Exam: General: NAD, VS as above, appears she is feeling unwell Resp: normal respiratory effort, lungs clear to auscultation CV: RRR, no murmur, Extremities: Moves all extremities, Neuro: A&O x3, Skin: intact, no lesions noted Results & Data Results & Data Vital Signs (Past 12 Hours) Vital Signs Temp Pulse Resp BP Pulse Ox O2 Del Method 08/01/24 17:13 133/87 08/01/24 15:32 78 165/90 H 96 Room Air 08/01/24 15:25 98.6 F 83 20 185/106 H 97 Room Air 08/01/24 07:22 98.2 F 73 20 155/93 H 95 Room Air Laboratory Results cbc and chemistry reviewed LFTs reviewed PG Care Time/CCT Total # of Minutes Spent Total Time Spent with Patient: Total time spent is greater than 50% in coordination of care (as documented) at patient's floor/unit and/or counseling patient: Coding Level of Care Code 11687 SUB INP/OBS CARE 2/35MIN Diagnoses Intractable vomiting with nausea R11.2 Migraine without status migrainosus, not intractable, unspecified migraine type G43.909 Migraine type: unspecified Status migrainosus presence: without status migrainosus Intractability: not intractable Hypokalemia E87.6 Leukocytosis D72.829 Tachycardia R00.0 Vertebral artery dissection I77.74 (2) Migraine Migraine type: unspecified Status migrainosus presence: without status migrainosus Intractability: not intractable Qualified Code(s): G43.909 - Migraine, unspecified, not intractable, without status migrainosus
[2024-08-01] MEDS: buPROPion SR 150 MG TABCR PO SCH (19:47)
[2024-08-01] MEDS: GABAPENTIN 300 MG CAP PO SCH (20:46)
[2024-08-02] MEDS: TOPIRAMATE 50 MG TAB PO SCH (08:07)
[2024-08-02] MEDS: SERTRALINE HCL 100 MG TABLET PO SCH (08:08)
[2024-08-02] MEDS: diphenhydrAMINE Capsule 25 MG CAP PO ONE (11:28)
[2024-08-02] MEDS: PROCHLORPERAZINE 10 MG in SYRINGE 8 ML IV ONE (12:04)
--- NOTE | 2024-08-02 16:01 | Hospitalist Progress Note ---
Date of Service August 02, 2024 Assessment & Plan (1) Intractable vomiting with nausea: (2) Migraine: (3) Hypokalemia: (4) Leukocytosis: (5) Tachycardia: (6) Vertebral artery dissection: Plan Patient is a 63-year-old female with a past medical history of hypertension, migraines, arthritis, CKD stage III. she presented to the ED 07/30 for migraine and nausea and was sent home after feeling better with fluids, Reglan, Benadryl, Tylenol, Dilaudid, and patient reports steroids. She returned to the ED several hours later because her vomiting returned and she has been unable to tolerate any p.o. intake for 2 days. She is being admitted for intractable vomiting secondary to migraine. #intractable vomiting/migraine head CT and head CTA negative. neck CTA showed chronic focal dissection within the proximal is unchanged from 2019 Continue IV dexamethasone daily. continue IVFs Pain control: tylenol prn, Toradol prn, and Dilaudid UDS ordered - positive for MDMA - on bupropion , positive for opioids- Dilaudid in ED Topamax resumed. Outpatient referral to headache clinic /neurologist on discharges for migraines - differential includes but not limited to vertebral artery vasospasm, could consider verapamil long-term setting trial of Compazine/Benadryl this afternoonif no improvement per hospitalist note prior migraine improved with dihydroergotamine 1mg SQ, reglan 10mg IV and toradol 15mg IV - consider this if compazine did not help #chronic vertebral artery dissection neck CTA showed remonstrated chronic focal dissection within the proximal right vertebral artery, unchanged from 2019 heterogeneous appearance of proximal right common carotid artery likely artifact Neck MRA showed no significant abnormalities, no dissections Questionable dissection as MRA showed no abnormality Referral to neurologist for above on discharge #HTN - carvedilol resumed, holding chlorthalidone with dehydration #anxietyWellbutrin, sertraline, hydroxyzine at bedtime Dispo: continued inpatient stay, treating migraine DVT ppx: low risk Admission and Anticipated Discharge Date Admission Date: July 31, 2024 Supervising Physician Co-Signing Physician Notes Attending Attestation - Chart reviewed, care plan d/w JETHRO Rizvi. I agree w/ the sánchez components of her documentation. Edgar Don MD Subjective still with migraine and photophobia. Denies vision changes lightheadedness or dizziness. Still having nausea but no vomiting. Did not tolerate much of her breakfast Has been hospitalized here for migraines in the past and thinks something "starting with D" was helpful Physical Exam Physical Exam: General: NAD, VS as above, appears she is feeling unwell Resp: normal respiratory effort, lungs clear to auscultation CV: RRR, no murmur, Extremities: Moves all extremities, Neuro: A&O x3, Skin: intact, no lesions noted Results & Data Results & Data Vital Signs (Past 12 Hours) Vital Signs Temp Pulse Resp BP Pulse Ox O2 Del Method 08/02/24 14:26 98.1 F 74 16 119/77 94 Room Air 08/02/24 07:11 97.9 F 76 16 156/87 H 95 Room Air PG Care Time/CCT Total # of Minutes Spent Total Time Spent with Patient: Total time spent is greater than 50% in coordination of care (as documented) at patient's floor/unit and/or counseling patient: Coding Level of Care Code 73331 SUB INP/OBS CARE 2/35MIN Diagnoses Intractable vomiting with nausea R11.2 Migraine without status migrainosus, not intractable, unspecified migraine type G43.909 Intractability: not intractable Migraine type: unspecified Status migrainosus presence: without status migrainosus Hypokalemia E87.6 Leukocytosis D72.829 Tachycardia R00.0 Vertebral artery dissection I77.74 (2) Migraine Intractability: not intractable Migraine type: unspecified Status migrainosus presence: without status migrainosus Qualified Code(s): G43.909 - Migraine, unspecified, not intractable, without status migrainosus
[2024-08-02] MEDS: PANTOprazole 40 MG TAB PO SCH (20:00)
[2024-08-03] MEDS: DIHYDROERGOTAMINE MESYLATE 1 MG/ML VIAL SQ ONE (08:48)
[2024-08-03] MEDS: METOCLOPRAMIDE HCL INJ 5 MG/ML 2 ML VIAL IV PRN (08:53)
[2024-08-03] MEDS: MEPERIDINE HCL 25 MG/ML CARP/VIAL IM ONE (13:43)
[2024-08-03] MEDS: VALPROATE SOD 1,000 MG in DEXTROSE 5% 100 ML IV ONE (15:33)
[2024-08-03] MEDS: MAGNESIUM SULFATE / D5W 1 GM/100 ML BAG IV ONE (16:43)
--- NOTE | 2024-08-03 17:02 | Hospitalist Progress Note ---
Date of Service August 03, 2024 Assessment & Plan (1) Intractable vomiting with nausea: (2) Migraine: (3) Hypokalemia: (4) Leukocytosis: (5) Tachycardia: (6) Vertebral artery dissection: Plan Patient is a 63-year-old female with a past medical history of hypertension, migraines, arthritis, CKD stage III. she presented to the ED 07/30 for migraine and nausea and was sent home after feeling better with fluids, Reglan, Benadryl, Tylenol, Dilaudid, and patient reports steroids. She returned to the ED several hours later because her vomiting returned and she has been unable to tolerate any p.o. intake for 2 days. She is being admitted for intractable vomiting secondary to migraine. #intractable vomiting/migraine head CT and head CTA negative. neck CTA showed chronic focal dissection within the proximal is unchanged from 2018 Continue IV dexamethasone daily. continue IVFs Topamax resumed. Outpatient referral to headache clinic /neurologist on discharges for migraines - differential includes but not limited to vertebral artery vasospasm, could consider verapamil long-term setting 08/02 : compazine/Benadryl with out improvement 08/03: Trial dihydroergotamine 1mg SQ, reglan 10mg IV and toradol 15mg IV. Later trialed Demerol per pt request. Later trialed IV Mag / Depakote 1000mg IV Consider having family bring in [facility] ODT tomorrow if migraine still persists. #chronic vertebral artery dissection neck CTA showed remonstrated chronic focal dissection within the proximal right vertebral artery, unchanged from 2019 heterogeneous appearance of proximal right common carotid artery likely artifact Neck MRA showed no significant abnormalities, no dissections Questionable dissection as MRA showed no abnormality Referral to neurologist for above on discharge #HTN - carvedilol resumed, holding chlorthalidone with dehydration #anxietyWellbutrin, sertraline, hydroxyzine at bedtime Dispo: continued inpatient stay, treating migraine DVT ppx: low risk Admission and Anticipated Discharge Date Admission Date: July 31, 2024 Supervising Physician Co-Signing Physician Notes Attending Attestation - Chart reviewed, care plan d/w JETHRO Rizvi. I agree w/ the sánchez components of her documentation. Still with status migraine - try IV mag + IV depakote 1gm x 1 for abortive Rx. Consider increasing steroids. Consider [facility] ODT (will have to call to local pharmacy and have pt's family bring to hospital). Edgar Don MD Subjective Nisreen was seen earlier this morning, was still having about the same level migraine her nausea was improving slightly and she was able to eat half a pancake. Still having photophobia. Revisited this afternoon nausea has improved and is completely gone. The pain in her neck is also better with the ice pack however the migraine has not let up. discussed the possibility of Nurtec and we may trial this tomorrow Review of Systems Review of Systems: All systems reviewed & are unremarkable except as noted in Subjective Physical Exam Physical Exam: General: NAD, VS as above, appears she is feeling unwell Resp: normal respiratory effort, lungs clear to auscultation CV: RRR, no murmur, Extremities: Moves all extremities, Neuro: A&O x3, Skin: intact, no lesions noted Results & Data Results & Data Vital Signs (Past 12 Hours) Vital Signs Temp Pulse Resp BP BP Pulse Ox O2 Del Method 08/03/24 15:02 98.2 F 71 16 165/93 H 165/101 H 94 Room Air 08/03/24 07:38 98.1 F 70 16 158/93 H 97 Room Air PG Care Time/CCT Total # of Minutes Spent Total Time Spent with Patient: Total time spent is greater than 50% in coordination of care (as documented) at patient's floor/unit and/or counseling patient: Coding Level of Care Code 30585 SUB INP/OBS CARE 3/50MIN Diagnoses Intractable vomiting with nausea R11.2 Migraine without status migrainosus, not intractable, unspecified migraine type G43.909 Intractability: not intractable Migraine type: unspecified Status migrainosus presence: without status migrainosus Hypokalemia E87.6 Leukocytosis D72.829 Tachycardia R00.0 Vertebral artery dissection I77.74 (2) Migraine Intractability: not intractable Migraine type: unspecified Status migrainosus presence: without status migrainosus Qualified Code(s): G43.909 - Migraine, unspecified, not intractable, without status migrainosus
[2024-08-03] MEDS: hydrOXYzine HCl 10 MG TAB PO PRN (20:39)
[2024-08-04] MEDS ORDERED: DEXAMETHASONE SOD INJ 4 MG/ML VIAL IV STA (08:32)
[2024-08-04] MEDS: MAGNESIUM SULFATE / D5W 1 GM/100 ML BAG IV ONE (09:03)
[2024-08-04] MEDS: dexAMETHasone 6 MG in SYRINGE 0 ML IV STA (09:03)
[2024-08-04] MEDS: CYCLOBENZAPRINE HCL 10 MG TAB PO STA (09:03)
--- NOTE | 2024-08-04 13:58 | Electrocardiogram Report ---
Test Reason : Blood Pressure : */* mmHG Vent. Rate : 78 BPM Atrial Rate : 78 BPM P-R Int : 112 ms QRS Dur : 78 ms QT Int : 398 ms P-R-T Axes : 50 61 67 degrees QTcB Int : 453 ms Normal sinus rhythm Septal infarct , age undetermined Abnormal ECG When compared with ECG of 08-Sep-2019 05:17, Septal infarct is now Present Confirmed by Judah Strickland ([id number]) on 08/04/2024 1:58:37 PM Referred By: REFERRED SELF Confirmed By: Judah Strickland
--- NOTE | 2024-08-04 14:46 | Hospitalist Progress Note ---
Date of Service August 04, 2024 Assessment & Plan (1) Intractable vomiting with nausea: (2) Migraine: (3) Hypokalemia: (4) Leukocytosis: (5) Tachycardia: (6) Vertebral artery dissection: Plan Patient is a 63-year-old female with a past medical history of hypertension, migraines, arthritis, CKD stage III. she presented to the ED 07/30 for migraine and nausea and was sent home after feeling better with fluids, Reglan, Benadryl, Tylenol, Dilaudid, and patient reports steroids. She returned to the ED several hours later because her vomiting returned and she has been unable to tolerate any p.o. intake for 2 days. She is being admitted for intractable vomiting secondary to migraine. #intractable vomiting/migraine head CT and head CTA negative. neck CTA showed chronic focal dissection within the proximal is unchanged from 2019 Continue IV dexamethasone daily. continue IVFs Topamax resumed. Outpatient referral to headache clinic /neurologist on discharges for migraines - differential includes but not limited to vertebral artery vasospasm, could consider verapamil long-term setting 08/02 : compazine/Benadryl with out improvement 08/03: Trial dihydroergotamine 1mg SQ, reglan 10mg IV and toradol 15mg IV. Later trialed Demerol per pt request. Later trialed IV Mag / Depakote 1000mg IV 08/04: trial mag/increased steroids/mag. Later tried Nurtec ODT #chronic vertebral artery dissection neck CTA showed remonstrated chronic focal dissection within the proximal right vertebral artery, unchanged from 2019 heterogeneous appearance of proximal right common carotid artery likely artifact Neck MRA showed no significant abnormalities, no dissections Questionable dissection as MRA showed no abnormality Referral to neurologist for above on discharge #HTN - carvedilol resumed, holding chlorthalidone with dehydration #anxietyWellbutrin, sertraline, hydroxyzine at bedtime Dispo: continued inpatient stay, treating migraine, hopeful for discharge tomorrow DVT ppx: low risk Admission and Anticipated Discharge Date Admission Date: July 31, 2024 Supervising Physician Co-Signing Physician Notes Attending Attestation - Chart reviewed, care plan d/w JETHRO Rizvi. I agree w/ the sánchez components of her documentation. Trial of oral Nurtec ODT today for refractory status migraine (family picked up from outside pharmacy & brought to hospital). Edgar Don MD Subjective patient seen earlier this morning, still with migraine. Denies any pain with rotation of head. No meningeal signs. Nausea has resolved Review of Systems Review of Systems: All systems reviewed & are unremarkable except as noted in Subjective Physical Exam Physical Exam: General: NAD, VS as above, appears she is feeling unwell Resp: normal respiratory effort, lungs clear to auscultation CV: RRR, no murmur, Extremities: Moves all extremities, Neuro: A&O x3, no nuchal rigidity Skin: intact, no lesions noted Results & Data Results & Data Vital Signs (Past 12 Hours) Vital Signs Temp Pulse Resp BP Pulse Ox O2 Del Method 08/04/24 08:03 98.2 F 69 16 147/89 H 95 Room Air PG Care Time/CCT Total # of Minutes Spent Total Time Spent with Patient: Total time spent is greater than 50% in coordination of care (as documented) at patient's floor/unit and/or counseling patient: Coding Level of Care Code 55647 SUB INP/OBS CARE 2/35MIN Diagnoses Intractable vomiting with nausea R11.2 Migraine without status migrainosus, not intractable, unspecified migraine type G43.909 Intractability: not intractable Migraine type: unspecified Status migrainosus presence: without status migrainosus Hypokalemia E87.6 Leukocytosis D72.829 Tachycardia R00.0 Vertebral artery dissection I77.74 (2) Migraine Intractability: not intractable Migraine type: unspecified Status migrainosus presence: without status migrainosus Qualified Code(s): G43.909 - Migraine, unspecified, not intractable, without status migrainosus
[2024-08-04] MEDS: RIMEGEPANT SULFATE 75 MG OD TAB PO PRN (15:06)
[2024-08-04] MEDS: POLYETHYLENE (MIRALAX) 17 GM PACK PO PRN (15:48)
[2024-08-04] MEDS: LACTATED RINGER'S 1,000 ML IV SCH (18:01)
[2024-08-05 04:16] LABS: Codeine Urine NEGATIVE ng/mL (<50); Hydrocodone Urine NEGATIVE ng/mL (<50); Hydromor Urine 879 ng/mL (<50); MDA negative; MDEA negative; MDMA (Ecstasy) Urine, Confirm negative; Morphine Urine NEGATIVE ng/mL (<50); Norhydrocodone Conf Ur NEGATIVE ng/mL (<50); Noroxycodone Urine 461 ng/mL (<50); Oxycodone Urine NEGATIVE ng/mL (<50); Oxymorph Urine NEGATIVE ng/mL (<50)
[2024-08-05] MEDS: carvediloL 25 MG TAB PO SCH (07:16)
[2024-08-05 07:58] VITALS: BP 122/83; RESP 17; TEMP 97.5; O2SAT 98
--- NOTE | 2024-08-05 08:50 | Discharge Summary ---
Discharge Summary Date of Service August 05, 2024 Principal Dx & Hospital Course #1 = Principal Diagnosis (1) Intractable vomiting with nausea: (2) Migraine: (3) Hypokalemia: (4) Leukocytosis: (5) Tachycardia: (6) Vertebral artery dissection: Plan #intractable vomiting/migraine Patient is a 63-year-old female with a past medical history of hypertension, migraines, arthritis, CKD stage III. Initally came to ED 07/30 for migraine and nausea and was sent home after feeling better with fluids, Reglan, Benadryl, Tylenol, Dilaudid, and patient reports steroids. She returned to the ED several hours later because her vomiting returned and she has been unable to tolerate any p.o. intake for 2 days. She was admitted for intractable Migraine. Inital workup showed head CT and head CTA negative. neck CTA showed chronic focal dissection within the proximal is unchanged from 2019. Topamax was continued and given IV dexamethasone daily. Multiple migraines cocktail trialed (compazine/benadryl, dihydrergotamine /reglan/toradol, demerol, mag/depakote) and eventually migraine improved with Nurtec ODT. She has prescription to continue this at home. Prescription given for zofran and tramadol as well. #chronic vertebral artery dissection neck CTA showed remonstrated chronic focal dissection within the proximal right vertebral artery, unchanged from 2019 heterogeneous appearance of proximal right common carotid artery likely artifact however Neck MRA showed no significant abnormalities, no dissections Outpatient referral to headache clinic /neurologist on discharges for migraines - differential includes but not limited to vertebral artery vasospasm, could consider verapamil long-term setting #HTN - carvedilol resumed, chlorthalidone resumed at discharged - educated not to take if poor PO intake #anxietyWellbutrin, sertraline, hydroxyzine at bedtime Dispo: discharge to home today Notes For Next Care Provider outpatient neurology/headache clinic referral Admission HPI Per Admitting Provider Patient is a 63-year-old female with a past medical history of hypertension, migraines, arthritis, CKD stage III. she presented to the ED 07/30 for migraine and nausea and was sent home after feeling better with fluids, Reglan, Benadryl, Tylenol, Dilaudid, and patient reports steroids. She returned to the ED several hours later because her vomiting returned and she has been unable to tolerate any p.o. intake for 2 days. She is being admitted for intractable vomiting secondary to migraine. Seen bedside with her present. She stated her migraines typically start with a migraine then vomiting however this pain started with vomiting for so she thought she was getting the flu. She denies any other flulike symptoms. Her migraine is diffusely over her head, not in a specific location, this is normal for her. She denies any right or left-sided deficits, no slurred speech. Her vomit is yellow-colored, denies hematemesis. She does not currently follow with a neurologist, however requested to arrange care with 1 with her PCP today. Her PCP told her to come into the ED today because her vomiting returned. She stated that her migraines are very sporadic will come sometimes she does 6 months without 1 and then will have a fever couple months in a row. She has maybe been in the ED here 1 times since 2019 due to migraine. She frequently can treat them with Excedrin Migraine at home. She does endorse dizziness however thinks secondary to dehydration. She denies any lightheadedness, chest pain, shortness of breath, abdominal pain, diarrhea. She denies any nicotine, alcohol, or illicit drug use. She has not taken her home medications in several days due to being unable to tolerate p.o. intake, she stated her blood pressure is higher than baseline. She wishes to be full code. Patient states that medication received in the ED took her migraine from 02/16 to 11/16. Her nausea is slowly returning. She does feel like she can tolerate clear fluids. Discharge Exam General: NAD, VS as above, appears better Resp: normal respiratory effort, lungs clear to auscultation CV: RRR, no murmur, Extremities: Moves all extremities, Neuro: A&O x3, no nuchal rigidity Skin: intact, no lesions noted Discharge Plan Discharge Items Patient Disposition: Home - Self-Care Reason For Visit: INTRACTABLE VOMITING, MIGRAINE Discharge Diagnosis: Migraine Activity: Resume your previous activity Driving/Machine Use: No limitations Weightbearing: Full weightbearing Non-emergency contact: Primary Care Provider Call non-emergency contact if: you have any medication questions and your temperature is above 101 Follow-up/Referrals: Victor Hugo Velez MD [Primary Care Provider] - Yue Collier PA [Physician Senior Underwriting Assistant] - (new referral - migraines /headache clinic ) Diet: Regular Addtl Attending Provider Instructions: Ms. Nelson, You were hospitlaized after having an intractable migraine. THankfully after multiple different medication cocktails this has broken. You can continue to use nurtec at home if needed for migraines - this works best at the first sign of a migraine. I have also sent in zofran that you can take for nausea. There is a prescriptin for tramadol that you can take for pain if tylenol/ibuprofen is not effective. This in an opioid, razia do not drive while taking this. I have referred you to the [facility] headache clinic. The number is listed above, if you do not here from them by the end of next week, please give them a call. Your blood presure improved once your pain improved and you can continue to take your home meds. If you are not feeling well and not eating well please do not take your chlorithalidone that day as it is a diuretic that can make you more dehydrated and make your headache/migraine symptoms worsen. Please follow up with your PCP in one week. Please return with worsening symptoms, visions changes, chest pain or shortness of breath. Thank you for allowing us to participate in your care! GALEN Das Pending Studies at Discharge: No Stand-Alone Forms: My [facility], Smoking Cessation Medications and DC Order Prescriptions: New Nurtec ODT 75 mg tablet,disintegrating 75 mg PO Q OTHER DAY PRN (Reason: migraine headache) Qty: 15 0RF ondansetron 4 mg tablet,disintegrating 4 mg PO Q6H PRN (Reason: nausea and vomiting) Qty: 14 0RF tramadol 50 mg tablet 50 mg PO Q6H PRN (Reason: pain) Qty: 10 0RF Continued sertraline 100 mg Tablet 200 mg PO DAILY topiramate 50 mg Capsule,Extended Release 24hr 50 mg PO DAILY carvedilol 25 mg Tablet 25 mg PO DAILY hydroxyzine HCl 10 mg Tablet 10 mg PO HS pantoprazole 40 mg Tablet,Delayed Release (Dr/Ec) 40 mg PO BID Qty: 60 0RF chlorthalidone 50 mg tablet 50 mg PO QAM gabapentin 300 mg capsule 300 mg PO HS bupropion HCl [Wellbutrin SR] 150 mg tablet sustained-release 12 hr 150 mg PO BID albuterol sulfate 90 mcg/actuation HFA aerosol inhaler 2 - 4 puff Inhalation Q4 PRN (Reason: Shortness Of Breath Or Wheezing) atorvastatin 40 mg Tablet 40 mg PO QAM Qty: 30 0RF aspirin [Ecotrin Low Strength] 81 mg Tablet,Delayed Release (Dr/Ec) 81 mg PO QAM Qty: 30 0RF lorazepam 2 mg tablet 1 - 2 mg PO BID PRN (Reason: Anxiety) Discharge Orders: Discharge Order (Routine); Ordered 08/05/24 Ordered By: Pippa Siegel/Other Patient Handouts: Rimegepant Disintegrating Oral Tab Admission Data Admit Date/Time: 07/31/24 20:21 Attending Provider: Edgar Don Admit Provider: Bryan Davies Primary Care Provider: Victor Hugo Velez Other Providers: Bryan Davies Hospital Stay Data Consultations 07/31/24 18:54 ED Decision to Admit Stat Pending Results Patient Have Any Pending Studies at Discharge: No Discharge Instructions Given to Patient (Per Discharging Provider) Ms. Nelson, Blair were hospitlaized after having an intractable migraine. THankfully after multiple different medication cocktails this has broken. You can continue to use nurtec at home if needed for migraines - this works best at the first sign of a migraine. I have also sent in zofran that you can take for nausea. There is a prescriptin for tramadol that you can take for pain if tylenol/ibuprofen is not effective. This in an opioid, razia do not drive while taking this. I have referred you to the [facility] headache clinic. The number is listed above, if you do not here from them by the end of next week, please give them a call. Your blood presure improved once your pain improved and you can continue to take your home meds. If you are not feeling well and not eating well please do not take your chlorithalidone that day as it is a diuretic that can make you more dehydrated and make your headache/migraine symptoms worsen. Please follow up with your PCP in one week. Please return with worsening symptoms, visions changes, chest pain or shortness of breath. Thank you for allowing us to participate in your care! GALEN Das Total Time Total Time Spent Total Time Spent (In Minutes): Time spent day of discharge 33 minutes including direct patient care, medication reconciliation, documentation, review of labs and images, and coordination of care. Coding Level of Care Code 66919 INP/OBS DISCH >30 MIN Diagnoses Intractable vomiting with nausea R11.2 Migraine without status migrainosus, not intractable, unspecified migraine type G43.909 Migraine type: unspecified Status migrainosus presence: without status migrainosus Intractability: not intractable Hypokalemia E87.6 Leukocytosis D72.829 Tachycardia R00.0 Vertebral artery dissection I77.74
[2024-08-05 09:09] VITALS: PULSE 89
== END 2024-08-05 09:55 | disposition home or self-care (01) | DRG 102 ==
LOC: ED 15:08 → SUATTDRO 20:21 → 3N 20:21